=== PATIENT | female | born 1935 | race Caucasian/White ===

== ENCOUNTER 2019-03-06 10:14 | Emergency (ER) | payer MEDICARE, OTHER ==
--- NOTE | 2019-03-06 10:45 | ED ---
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 She states she was standing this morning using her walker when she felt her right leg give out on her. She denies falling and denies blunt trauma to the area. She states the area "twisted" and she felt immediate pain to the groin, R lateral portion of the leg extending from the hip to the R knee. Currently, she is endorsing pain to the lateral side of the R knee without pain to the hip at this time. She was recently DC'd from [facility] after 2 days for rehab from her R hip replacement. She was able to take Tylenol prior to arrival and states her pain level currently is rated 5/10 only with movement, 2/10 at rest. Orthopedic surgeon is Angelito Kelley MD [facility]. 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 Mechanism Of Injury: Twisted Onset of Pain: Minutes Onset/Duration: Minutes Severity Initially: Moderate Severity Currently: Moderate Pain Intensity: 3 Pain Scale Used: 0-10 Numeric Timing: Constant Location: Is Discrete @ - right lateral hip and knee, right groin Character Of Pain: Aching Associated Signs And Symptoms: Negative: Swelling, Redness, Bruising Aggravating Factor(s): Standing, Ambulation Alleviating Factor(s): Rest Able to Bear Weight: No - Risk Factors Gout Risk Factors: Negative DVT Risk Factors: Negative Septic Arthritis Risk Factor: Negative - Allergies/Home Medications Allergies/Adverse Reactions: Allergies Allergy/AdvReac Type Severity Reaction Status Date / Time No Known Allergies Allergy Verified 12/26/12 16:26 Home Medications: Home Medications Aspirin EC TAB* [Ecotrin EC Low Dose 81 MG*] 81 mg PO DAILY 03/06/19 [History Confirmed 03/06/19] Calcium Carb, Citrate/Vit D3 [Calcium+D3 Gradual Releas] 1 tab PO DAILY [History Confirmed 03/06/19] Cod Liver Oil 1 each PO DAILY 03/06/19 [History Confirmed 03/06/19] Cyanocobalamin TAB* [Vitamin B12 TAB*] 1,000 mcg PO DAILY 03/06/19 [History Confirmed 03/06/19] Cyclosporine 0.05% OPHTH (NF) [Restasis 0.05% OPHTH] 1 drop BOTH EYES BID [History Confirmed 03/06/19] Garlic 1,000 mg PO DAILY 03/06/19 [History Confirmed 03/06/19] Hydrocodone/Acetaminophen [Vicodin 5-300 mg] 1 tab PO DAILY 03/06/19 [History Confirmed 03/06/19] Iron 28 mg PO DAILY 03/06/19 [History Confirmed 03/06/19] L.acidoph,Paracasei, B.lactis [Probiotic] 1 each PO DAILY 03/06/19 [History Confirmed 03/06/19] Multivitamins/Minerals TAB* [Theragran/minerals TAB*] 1 tab PO DAILY 03/06/19 [ History Confirmed 03/06/19] Olopatadine 0.2% (NF) [Pataday 0.2% (NF)] 1 drop BOTH EYES DAILY 03/06/19 [ History Confirmed 03/06/19] Pantoprazole TAB * [Protonix TAB*] 40 mg PO BID 03/06/19 [History Confirmed ] Spironolactone TAB* [Aldactone TAB*] 25 mg PO DAILY 03/06/19 [History Confirmed 03/06/19] Valsartan/HCTZ 160/12.5(NF) [Diovan HCT 160/12.5 (NF)] 1 tab PO DAILY 03/06/19 [ History Confirmed 03/06/19] PMH/Surg Hx/FS Hx/Imm Hx Previously Healthy: Yes Endocrine/Hematology History: Denies: Hx Diabetes, Hx Thyroid Disease Cardiovascular History: Reports: Hx Hypertension Respiratory History: Denies: Hx Asthma, Hx Chronic Obstructive Pulmonary Disease (COPD) GI History: Denies: Hx Ulcer - Cancer History Cancer Type, Location and Year: Uterine cancer - Surgical History Surgery Procedure, Year, and Place: Hysterectomy, bilateral knee replacement, gallbladder - Immunization History Hx Pertussis Vaccination: No Immunizations Up to Date: Yes Infectious Disease History: No Infectious Disease History: Denies: Hx Hepatitis, Hx Human Immunodeficiency Virus (HIV), History Other Infectious Disease, Traveled Outside the [place] in Last 30 Days - Social History Occupation: Unemployed Lives: With Family Alcohol Use: Rare Hx Substance Use: No Substance Use Type: Reports: None Smoking Status (MU): Former Smoker Type: Cigarettes Review of Systems Constitutional: Negative Negative: Fever, Chills, Fatigue, Skin Diaphoresis Negative: Palpitations, Chest Pain Negative: Shortness Of Breath, Cough Genitourinary: Negative Positive: no symptoms reported, see HPI Positive: Arthralgia - right lateral hip and knee, right groin. Negative: Myalgia Negative: Rash, Bruising Neurological: Negative All Other Systems Reviewed And Are Negative: Yes Physical Exam Triage Information Reviewed: Yes Vital Signs On Initial Exam: Initial Vitals Temp Pulse Resp BP Pulse Ox 98.0 F 71 16 200/70 98 03/06/19 10:25 03/06/19 10:25 03/06/19 10:25 03/06/19 10:25 03/06/19 10:25 Vital Signs Reviewed: Yes Appearance: Positive: Well-Appearing, Well-Nourished Skin: Positive: Warm, Skin Color Reflects Adequate Perfusion Head/Face: Positive: Normal Head/Face Inspection Eyes: Positive: EOMI, Conjunctiva Clear Neck: Positive: Supple, Nontender Respiratory/Lung Sounds: Positive: Clear to Auscultation Cardiovascular: Positive: RRR, Pulses are Symmetrical in both Upper and Lower Extremities Musculoskeletal: Positive: Other - pain with attempting flexion and extension of the R knee - pt unable to flex at the hip. no shortening or internal/ external rotation of the R leg noted Neurological: Positive: Sensory/Motor Intact, Speech Normal Psychiatric: Positive: Affect/Mood Appropriate Diagnostics - Vital Signs Vital Signs Temp Pulse Resp BP Pulse Ox 03/06/19 10:25 98.0 F 71 16 200/70 98 - Laboratory Result Diagrams: 03/06/19 15:28 03/06/19 15:28 Lab Statement: Any lab studies that have been ordered have been reviewed, and results considered in the medical decision making process. Lower Extremity Course/Dx - Course Course Of Treatment: This patient is an 84-year-old female with a recent history of right hip replacement 5 Angelito Nicole M.D. in our [facility] 2 weeks ago today presenting to the ED with right hip and knee pain. He states she "twisted " leg earlier and developed immediate pain to the right groin and right lateral portion of the lower extremity extending from the hip to the knee. X-rays of the hip and knee were obtained which shows no acute findings. This was followed up with a CT of the lower extremity due to continuing pain to the femur , patient currently denying any pain to the pelvis.IMPRESSION: 1. PERIPROSTATIC FRACTURE IN THE PROXIMAL RIGHT FEMUR. 2. HEMATOMA IN THE SUBCUTANEOUS TISSUES ALONG THE LATERAL ASPECT OF THE RIGHT THIGH. 3. BOWING DEFORMITY OF THE FEMUR. Patient was given tramadol on arrival. After femur fracture was identified, and an IV was placed and orthopedic consult was advised. Dr. Chapin to see xrays and CT and recommended transfer to [facility] for surgery consult (Dr. Kelley) . Pt accepted and awaiting bed. Pt accepted by Dr. Vitale. - Diagnoses Differential Diagnosis/HQI/PQRI: Positive: Fracture (Closed), Sprain, Strain Provider Diagnoses: Emily-prosthetic femoral shaft fracture Discharge ED - Sign-Out/Discharge Documenting (check all that apply): Patient Departure Patient Received Moderate/Deep Sedation with Procedure: No - Discharge Plan Condition: Good Disposition: TRANS HIGHER LVL OF CARE FAC Referrals: Major Lund MD [Primary Care Provider] - - Billing Disposition and Condition Condition: GOOD Disposition: Trans Higher Lvl of Care Fac
--- OUTSIDE RECORDS SUMMARY | 2019-03-06 11:23 | XMS REPORT | Summary of Care ---
:1935 Author Organization [facility] Address [address] [facility] [place] [address] Care Team Providers Name Role Phone Major Felix MD Primary Care Provider Sami Kaur MD Unavailable Ijeoma Burnham OD Unavailable Rob Jimenez DMD Unavailable Reason for Visit Reason Comments Pre-op Exam Encounter Details Date Type Department Care Team Description 02/09/2019 Office Visit [facility], Preop examination (Primary Dx); 1 Nielsen Azucena Mitchell NP Primary osteoarthritis of right hip; [place] [id number] 1 KG SINGH Right hip pain [phone] [place] [id number] Allergies Active Allergy Reactions Severity Noted Date Comments Milk GI Reaction 02/25/2012 CAN TOLERATE CHEESE AND ICE CREAM documented as of this encounter (statuses as of 02/19/2019) Medications Medication Sig Dispensed Refills Start Date End Date Status ASPIRIN 81 MG Oral Tab Take 1 Tab by 0 Active mouth EVERY EVENING. Cod Liver Oil 1000 MG Take 1 Cap by 0 Active Oral Cap mouth EVERY MORNING. Garlic 1000 MG Oral Cap Take 1 Cap by 0 Active mouth EVERY MORNING. Red Yeast Rice 600 MG Take 2 Caps by 0 Active Oral Cap mouth TWICE DAILY. Tow-3 Fatty Acids Take 1 Cap by 0 Active (FISH OIL) 1000 MG Oral mouth EVERY Cap MORNING. Iron 66 MG Oral Tab Take 65 mg by 0 Active mouth DAILY. Zotxsik-Fptwiyqqw-Yawgx Take 1 Tab by 0 Active in D (CALCIUM 1200+D3 mouth DAILY. PO) Multiple Take by mouth 0 Active Vitamins-Minerals DAILY. (ICAPS) Oral Cap Olopatadine HCl Place to the 0 Active (PATADAY) 0.2 % external eye Ophthalmic Solution DAILY. cyclosporin (RESTASIS) Place to the 0 Active 0.05 % Ophthalmic external eye Emulsion TWICE DAILY. Cyanocobalamin (B-12) Take 2,000 mcg by 0 Active 1000 MCG Oral Cap mouth DAILY. Probiotic Product Take 1 Cap by 0 Active (PROBIOTIC FORMULA PO) mouth. carvedilol (COREG) 12.5 TAKE 1 TABLET BY 180 Tab 1 09/26/2018 Active MG Oral Tab MOUTH TWICE A DAY pantoprazole (PROTONIX) TAKE 1 TABLET BY 180 Tab 3 09/26/2018 Active 40 MG Oral Tab EC MOUTH TWICE A DAY Valsartan-hydroCHLOROth TAKE 1 TABLET BY 90 Tab 1 01/10/2019 Active iazide 160-12.5 MG Oral MOUTH EVERY DAY TabIndications: Essential hypertension HYDROcodone-acetaminoph Take 1 Tab by 90 Tab 0 01/27/2019 Active en (NORCO) 5-325 MG mouth EVERY EIGHT Oral Tab HOURS NEEDED (pain). Additional information Patient taking differently: 1 Tab Oral Q8 HRS PRN, pain, Indications: takes QHS, Reported on 02/09/2019 9:18 AM spironolactone Take 2 Tabs by 180 Tab 0 10/07/2018 02/13/2019 Discontinued (ALDACTONE) 25 MG mouth DAILY. (Reorder) Oral Tab mupirocin (BACTROBAN) 0.5 g by 15 g 0 02/09/2019 02/14/2019 2 % Apply externally Topical route Ointment TWICE DAILY for [address] pea size drop each end of q-tip, swab the inside nares then pinch nose 1 minute. documented as of this encounter (statuses as of 02/19/2019) Active Problems Problem Noted Date Chronic pain of right knee 12/30/2018 Primary osteoarthritis of right hip 12/30/2018 Thrombocytopenia 08/23/2018 Type 2 diabetes mellitus without complication, without long-term current 04/08 use of insulin Overview: Per Dr. Felix note on 02/22/17. Fractured lateral malleolus 11/10/2013 Ankle fracture, left 09/05/2013 Ankle pain, left 08/22/2013 Fx lateral malleolus-closed 08/22/2013 Carpal tunnel syndrome R CTR 03/02/12 02/25/2012 FAMILY HISTORY OF BREAST CANCER 02/20/2008 Essential hypertension 02/20/2008 Dyslipidemia 02/20/2008 Sleep Apnea 02/20/2008 COLON POLYPS 02/20/2008 Prieto's esophagus 02/20/2008 Hearing Loss 02/20/2008 DILATED CARDIOMYOPATHY 02/20/2008 Overview: 04/11/09 echocardiogram: Overall left ventricular systolic function is mildly impaired with, and EF between 45-50%. The diastolic filling pattern indicates impaired relaxation. The aortic valve is trileaflet, and appears structurally normal. No aortic stenosis or regurgitation. There is trace mitral regurgitation. Mild mitral annular calcification present. Trace tricuspid regurgitation present. Similar to 01/13 with slight improvement in LV function. 12/30/04 echocardiogram: The aortic valve is slightly thickened but mobile. Aortic valve Doppler is normal. The left ventricle is normal size and mildly hypertrophied. There are no apparent regional wall motion abnormalities and global systolic function is fair with ejection fraction between 50% and 55%. There is no evidence of left ventricular outflow tract obstruction by Doppler interrogation. The mitral valve is slightly sclerotic but mobile. There is mild annular calcification. Doppler demonstrates very mild mitral regurgitation. HYPERGLYCEMIA 02/20/2008 BMI 32.0-32.9,adult Overview: This patient's BMI has been calculated and is above average, and BMI management plan is completed. General patient education discussion including: weight loss link to reduction of risk factors for cardiac and other diseases Barretts esophagus Overview: 2013 6 mo Refusal of statin medication by patient Statin intolerance documented as of this encounter (statuses as of 02/19/2019) Resolved Problems Problem Noted Date Resolved Date UTERINE CANCER 02/20/2008 09/17/2009 Other diseases of lung, not elsewhere classified 02/20/2008 09/17/2009 Congestive Heart Failure 02/20/2008 09/17/2009 Overview: 02/12/05 cardiac catherization: CONCLUSION: 1. No obstructive coronary disease. 2. Normal left ventricular systolic function. 3. Upper limit of normal left ventricular end diastolic pressure, otherwise normal left-sided hemodynamics. 4. Successful Angio-Seal of right femoral artery. 5. False positive stress echocardiogram, there are no cardiac contraindications to her anticipated surgery. She should be maintained on her cardiac medications. Hypercholesterolemia 02/20/2008 09/30/2010 Nonspecific abnormal unspecified cardiovascular function study 02/11/2005 documented as of this encounter (statuses as of 02/19/2019) Immunizations Name Administration Dates Next Due Celestone Soluspan(12mg) 12/11/2010, 07/04/2010, 03/28/2010, 09/13/2009 Depo Medrol (40mg) 12/27/2009 H1N1 Injectable Adult 06/05/2009 Influenza (IM) Preservative Free 03/02/2013 Influenza Vaccine High Dose 02/25/2018, 02/22/2017, 03/04/2016, 02/20/2015, 02/20/2015, 04/04/2014 Influenza Vaccine Whole 03/25/2009, 03/19/2008, 03/29/2007 Influenza Virus Vaccine Pres Free 6-35 02/26/2012, 02/27/2011, 03/10/2010 Months PNEUMOCOCCAL POLYSACCHARIDE VACCINE 03/03/2007 Pneumococcal Conjugate(13 Valent) 09/07/2016 ZOSTER (ZOSTAVAX) VACCINE 05/03/2017 documented as of this encounter Social History Tobacco Use Types Packs/Day Years Used Date Former Smoker Cigarettes 1.5 27 Quit: 10/05/1974 Smokeless Tobacco: Never Used Comments: 20+ yrs of a 1 1/2 packs daily Alcohol Use Drinks/Week oz/Week Comments No 1 glass of wine occasionally Sex Assigned at Date Recorded Not on file Job Start Date Occupation Industry Not on file Not on file Not on file Travel History Travel Start Travel End No recent travel history available. documented as of this encounter Last Filed Vital Signs Not on filedocumented in this encounter Progress Notes Stephen Mccarthy NP - 02/09/2019 9:30 AM EDT ORTHOPEDIC PRE-OPERATIVE HISTORY AND PHYSICAL Patient: Solitario Wing : 1935 Date of Service: 02/09/2019 Chief Complaint Patient presents with Pre-op Exam Attending:Dr. Angelito Nicole Date of Admission/Surgery: 02/20/19 Pre-operative diagnosis: right hip osteoarthritis Planned Procedure: right total hip arthroplasty PCP: Major Felix HPI: Solitario Wing is a 84-y.o. female who presents today in Pre Admission Testing for medical clearance. Patient has a complaint of right hip pain. The pain is 0/10 at rest, and 6/10 at its worst. The pain has been present for several months . It is located groin and anterior knee. It is worse withweight bearing, stairs and activity. Solitario Wing has tried tylenol, NSAID's and activity modification, these are no longer helping. Physical therapy and/or home exercise not helping Due to on-going symptoms, failure of conservative treatments, and negative quality of life issues Solitario has elected to proceed with right total hip arthroplasty. We discussed surgical treatment consisting of right total hip arthroplasty with a goal of obtaining a construct to allow for pain-free ambulation. The procedure , risks, benefits, and alternatives were discussed as well as the esteban- operative hospital course with emphasis on possible postoperative infection, neurovascular compromise, intraoperative/post operative bleeding, deep vein thrombosis/pulmonary embolism, possible non-resolving symptoms, need for future procedures, periprosthetic fractures, failures, dislocations, infections, need for revisions staged or otherwise, deep vein thrombosis prophylaxis with Aspirin , complications from the procedure and/or anesthesia not limited to possible loss of limb and/or life, the need for pre-operative home exercise program and post operative physical therapy and occupational therapy, the possibility for short term rehabilitation placement, the post operative course, returning to activities, and avoiding impact activities. The patient is aware of these and has elected to go forward with the surgical procedure by Dr. Angelito Nicole. Patient received exercises with [employer] material for home exercise program including ROM, Strengthening and Stretching during initial office visit. PMHx: Past Medical History: Diagnosis Date Barretts esophagus 2013 . 2016 stable fu 2 years 2019 Barretts no dysplasia -3 years . . BMI 32.0-32.9,adult Cardiomyopathy dilated initially due to flu Carotid bruit 2010 ,50% Colon polyp 2006 colonoscopy 2011 Tics only 5 years. 2016 adenoma recommend 5 years Congestive Heart Failure 1989 due to flu CTS (carpal tunnel syndrome) 2012 Diverticulosis Endometrial ca (HCC) FAMILY HISTORY OF BREAST CANCER 02/20/2008 Fibula fracture Gastric nodule 2013 bx negative GERD (gastroesophageal reflux disease) Hearing loss aids HYPERGLYCEMIA 02/20/2008 Hyperlipidemia not want meds Hypertension Macular degeneration Nulliparity OA (osteoarthritis) of knee Obesity Osteopenia 2013 [id number] major and 3.2 hip if include fibula .fx if not then 11 and 2.3 Postmenopausal Pulmonary nodule negative CT Refusal of statin medication by patient Sleep apnea cpap 13cm Statin intolerance Thrombocytopenia (HCC) Patient Active Problem List Diagnosis FAMILY HISTORY OF BREAST CANCER Essential hypertension Dyslipidemia Sleep Apnea COLON POLYPS Prieto's esophagus Hearing Loss DILATED CARDIOMYOPATHY HYPERGLYCEMIA BMI 32.0-32.9,adult Carpal tunnel syndrome R CTR 03/02/12 Ankle pain, left Fx lateral malleolus-closed Ankle fracture, left Fractured lateral malleolus Barretts esophagus Type 2 diabetes mellitus without complication, without long-term current use of insulin (HCC) Refusal of statin medication by patient Thrombocytopenia (HCC) Statin intolerance Chronic pain of right knee Primary osteoarthritis of right hip PSHx: has a past surgical history that includes cholecystectomy; total knee replacement; total abd hysterectomy; Patient for COLONOSCOPY (2005); echocardiogram (2009); echocardiogram (2010); cardiac stress test nec (04/17); total knee replacement (05/2011); pr egd injection sclerosis esophgl/gastric varices; release carpal tunnel (03/02/2012); echocardiogram (2012); stress echo ( 2012); DOBUTAMINE STRESS ECHOCARDIOGRAM (2012); colonoscopy (N/A, 05/18/2016); pr orbit surgery proc unlisted (Bilateral);and egd (N/A, 10/26/2018). Current Medications: Current Outpatient Medications Medication Sig ASPIRIN 81 MG Oral Tab Take 1 Tab by mouth EVERY EVENING. Cncuimx-Acojxbmhb-Wsabnhx D (CALCIUM 1200+D3 PO) Take 1 Tab by mouth DAILY. carvedilol (COREG) 12.5 MG Oral Tab TAKE 1 TABLET BY MOUTH TWICE A DAY Cod Liver Oil 1000 MG Oral Cap Take 1 Cap by mouth EVERY MORNING. Cyanocobalamin (B-12) 1000 MCG Oral Cap Take 2,000 mcg by mouth DAILY. cyclosporin (RESTASIS) 0.05 % Ophthalmic Emulsion Place to the external eye TWICE DAILY. Garlic 1000 MG Oral Cap Take 1 Cap by mouth EVERY MORNING. HYDROcodone-acetaminophen (NORCO) 5-325 MG Oral Tab Take 1 Tab by mouth EVERY EIGHT HOURS NEEDED (pain). (Patient taking differently: Take 1 Tab by mouth EVERY EIGHT HOURS NEEDED (pain). Indications: takes QHS) Iron 66 MG Oral Tab Take 65 mg by mouth DAILY. Multiple Vitamins-Minerals (ICAPS) Oral Cap Take by mouth DAILY. mupirocin (BACTROBAN) 2 % Apply externally Ointment 0.5 g by Topical route TWICE DAILY for [address] pea size drop each end of q-tip, swab the inside nares then pinch nose 1 minute. Olopatadine HCl (PATADAY) 0.2 % Ophthalmic Solution Place to the external eye DAILY. Tow-3 Fatty Acids (FISH OIL) 1000 MG Oral Cap Take 1 Cap by mouth EVERY MORNING. pantoprazole (PROTONIX) 40 MG Oral Tab EC TAKE 1 TABLET BY MOUTH TWICE A DAY Probiotic Product (PROBIOTIC FORMULA PO) Take 1 Cap by mouth. Red Yeast Rice 600 MG Oral Cap Take 2 Caps by mouth TWICE DAILY. spironolactone (ALDACTONE) 25 MG Oral Tab Take 2 Tabs by mouth DAILY. ( Patient taking differently: Take 50 mg by mouth DAILY. Indications: takes one a day) Valsartan-hydroCHLOROthiazide 160-12.5 MG Oral Tab TAKE 1 TABLET BY MOUTH EVERY DAY No current facility-administered medications for this visit. ALG: Allergies as of 02/09/2019 - Reviewed 02/09/2019 Allergen Reaction Noted Milk GI Reaction 02/25/2012 SOC Hx: reports that she quit smoking about 44 years ago. Her smoking use included cigarettes. She has a 40.50 pack-year smoking history. She has never used smokeless tobacco. She reports that she does not drink alcohol or use drugs. 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 Pt lives alone. FamHx: family history includes Breast Cancer in her mother; Cancer in her brother and mother; Heart in her brother, brother, brother, father, mother, and unknown relative; High Cholesterol in her brother; Hypertension in her brother, father, and mother. Family Status Relation Name Status Mo Bro Fa Unknown (Not Specified) Bro half brother Bro half brother ROS: See HPI otherwise all other ROS are negative. Physical Exam: General : Solitario Wing is a 84-y.o. female in no acute distress, conscious alert and oriented times three. HEENT: Normal cephalic and atraumatic head. Pupils equal, round, and reactive to light bilaterally. EOM's intact bilaterally. External ears are patent without discharge. Gross hearing is intact. Nose is patent without discharge. Oropharynx clear without exudate. Dentition is adequate. Neck: Supple without adenopathy. Heart: No chest pain or shortness of breath noted. Chest: No audible wheezes, rhonchi, or rales. Abdomen: Bowel sounds present. Soft, non-tender, nondistended. /Recta/Breasts: Deferred Extremities: Otherwise extremities are grossly symmetrical and unremarkable without erythema, ecchymosis, clubbing or edema. Neuro: Cranial nerves II-XII grossly intact. Skin: Warm and dry, well perfused Bilateral hips: No peritroch tenderness. Pos pain with internal rotation. Po s antalgic gait. Neg trendelenburg. Limb lengths grossly equal. Pos stinchfield. ROM 0-90 flexion, 5 internal rotation, 25 external rotation, 35 abduction, 15adduction, 5/5 DF, 5/5PF, sensate saphenous, sural, deep peroneal, superficial peronea, and plantar nerves + 2 dorsalis pedis and + 2 posterior tibial pulses. No noted lymphedema No pain with range of motion of lumbar spine. Straight leg raise neg . RADIOLOGIC STUDIES: Right hip with joint space narrowing,bone on bone changes, sclerosis, spurring, consistent with Osteoarthritis Labs: Admission on 10/26/2018, Discharged on 10/26/2018 Component Date Value Ref Range Status Sp Final Report 10/26/2018 Final Value: Patient Name: SOLITARIO WING Date of :1935 (Age: 83) Gender:F Specimen #[id number] Source: 1: Cold Bx: EG junction, Hx of Prieto's r/o dysplasia; EGD Final Pathologic Diagnosis Esophagus, GE junction, biopsy: -Prieto's esophagus; no evidence of dysplasia. -Squamocolumnar mucosa with changes consistent with reflux esophagitis. Gross Description 1. Cold Bx: EG junction, Hx of Prieto's r/o dysplasia; EGD:The specimen is received in formalin labeled with the patient's name and MRN and " cold BX EG junction, Hx of Prieto's, R/O dysplasia" and consists of multiple gurrola irregular soft tissue fragments with aggregate dimensions of 0.9 x 0.6 x 0.2 cm. The specimen is submitted in toto in cassette 1A.NJL The gross description is reviewed by the primary pathologist within one business day. Gross description is reviewed befor e sign out by ADA NAIR MD, PHD Microscopic Description Microscopic examination performed ADA NAIR MD, PHD Upper GI endoscopy 10/26/2018 Final Value:[facility] Patient Name: Solitario Wing Procedure Date: 10/26/2018 11:08 AM Date of : 1935 Admit Type: Outpatient Age: 83 Room: OR Gender: Female Note Status: Finalized Attending MD: JACKSON POLANCO JR, MD Instrument Name: [id number] Procedure: Upper GI endoscopy Indications: Follow-up of Prieto's esophagus Providers: JACKSON POLANCO JR, MD, Nataly Prasad (Nurse), Christina Jain RN (Nurse) Referring MD: MAJOR FELIX MD (Referring MD) Medicines: See the Anesthesia note for documentation of the administered medications Complications: No immediate complications. Procedure: The patient's current medications and allergies were reviewed and recorded in the nurses notes. The patient was made aware of the risk of the procedure which can include: bleeding, infection, perforation, an adverse reaction to sedation, and a risk of missed lesions, among others. The patient appeared to understand. An opportunity for questions was provided, and an informed consent form was signed. The scope was passed under direct vision. Throughout the procedure, the patient's blood pressure, pulse EKG, and oxygen saturations were monitored continuously. The Endoscope was introduced through the mouth, and advanced to the second part of duodenum. The Z-line was located at: The upper GI endoscopy was accomplished without difficulty. The patient tolerated the procedure well. Findings: The esophagus and gastroesophageal junction were examined with white light and narrow band imaging (NBI). There were esophageal mucosal changes secondary to established long-segment Prieto's disease. These changes involved the mucosa at the upper extent of the gastric folds (37 cm from the incisors) extending to the Z-line (32 cm from the incisors). The maximum longitudinal extent of these esophageal mucosal changes was 5 cm in length. Contrast chromoscopy with an acetic acid solution was performed. Mucosa was biopsied with a cold forceps for histology in a targeted manner from 32 to 38 cm from the incisors. One specimen bottle was sent to pathology. Multiple medium pedunculated and sessile polyps with no stigmata of recent bleeding were found in the gastric body. The examined duodenum was normal. Impression: - Esophageal mucosal changes secondary to established long-segment Prieto's disease. Chromoscopy performed. Biopsied. - Multiple gastric polyps. - Normal examined duodenum. Recommendation: - Continue present medications. - Await pathology results. - Discharge patient to home. Procedure Code(s): --- Professional --- 21690, Esophagogastroduodenoscopy, flexible, transoral; with biopsy, single or multiple Diagnosis Code(s): --- Professional --- K22.70, [place] tt's esophagus without dysplasia CPT copyright 2017 [employer]. All rights reserved. The codes documented in this report are preliminary and upon medical service representative review may be revised to meet current compliance requirements. JACKSON POLANCO JR, MD 10/26/2018 11:55:46 AM This report has been signed electronically. Number of Addenda: 0 Note Initiated On: 10/26/2018 11:08 AM No visits with results within 1 Week(s) from this visit. Latest known visit with results is: Patient Active Problem List Component Date Value Sp Final Report 10/26/2018 Value: Patient Name: SOLITARIO WING Date of :1935 (Age: 83) Gender:F Specimen #[id number] Source: 1: Cold Bx: EG junction, Hx of Prieto's r/o dysplasia; EGD Final Pathologic Diagnosis Esophagus, GE junction, biopsy: -Prieto's esophagus; no evidence of dysplasia. -Squamocolumnar mucosa with changes consistent with reflux esophagitis. Gross Description 1. Cold Bx: EG junction, Hx of Prieto's r/o dysplasia; EGD:The specimen is received in formalin labeled with the patient's name and MRN and " cold BX EG junction, Hx of Prieto's, R/O dysplasia" and consists of multiple gurrola irregular soft tissue fragments with aggregate dimensions of 0.9 x 0.6 x 0.2 cm. The specimen is submitted in toto in cassette 1A.NJL The gross description is reviewed by the primary pathologist within one business day. Gross description is reviewed befor e sign out by ADA NAIR MD, PHD Microscopic Description Microscopic examination performed ADA NAIR MD, PHD Upper GI endoscopy 10/26/2018 Value:[facility] Patient Name: Solitario Wing Procedure Date: 10/26/2018 11:08 AM Date of : 1935 Admit Type: Outpatient Age: 83 Room: OR Gender: Female Note Status: Finalized Attending MD: JACKSON POLANCO JR, MD Instrument Name: [id number] Procedure: Upper GI endoscopy Indications: Follow-up of Prieto's esophagus Providers: JACKSON POLANCO JR, MD, Nataly Prasad (Nurse), Christina Jain RN (Nurse) Referring MD: MAJOR FELIX MD (Referring MD) Medicines: See the Anesthesia note for documentation of the administered medications Complications: No immediate complications. Procedure: The patient's current medications and allergies were reviewed and recorded in the nurses notes. The patient was made aware of the risk of the procedure which can include: bleeding, infection, perforation, an adverse reaction to sedation, and a risk of missed lesions, among others. The patient appeared to understand. An opportunity for questions was provided, and an informed consent form was signed. The scope was passed under direct vision. Throughout the procedure, the patient's blood pressure, pulse EKG, and oxygen saturations were monitored continuously. The Endoscope was introduced through the mouth, and advanced to the second part of duodenum. The Z-line was located at: The upper GI endoscopy was accomplished without difficulty. The patient tolerated the procedure well. Findings: The esophagus and gastroesophageal junction were examined with white light and narrow band imaging (NBI). There were esophageal mucosal changes secondary to established long-segment Prieto's disease. These changes involved the mucosa at the upper extent of the gastric folds (37 cm from the incisors) extending to the Z-line (32 cm from the incisors). The maximum longitudinal extent of these esophageal mucosal changes was 5 cm in length. Contrast chromoscopy with an acetic acid solution was performed. Mucosa was biopsied with a cold forceps for histology in a targeted manner from 32 to 38 cm from the incisors. One specimen bottle was sent to pathology. Multiple medium pedunculated and sessile polyps with no stigmata of recent bleeding were found in the gastric body. The examined duodenum was normal. Impression: - Esophageal mucosal changes secondary to established long-segment Prieto's disease. Chromoscopy performed. Biopsied. - Multiple gastric polyps. - Normal examined duodenum. Recommendation: - Continue present medications. - Await pathology results. - Discharge patient to home. Procedure Code(s): --- Professional --- 85533, Esophagogastroduodenoscopy, flexible, transoral; with biopsy, single or multiple Diagnosis Code(s): --- Professional --- K22.70, [place] tt's esophagus without dysplasia CPT copyright 2017 [employer]. All rights reserved. The codes documented in this report are preliminary and upon medical service representative review may be revised to meet current compliance requirements. JACKSON POLANCO JR, MD 10/26/2018 11:55:46 AM This report has been signed electronically. Number of Addenda: 0 Note Initiated On: 10/26/2018 11:08 AM ] Results for orders placed or performed in visit on 12/30/18 XR KNEE 4 OR MORE VIEWS RIGHT (STANDARD) Narrative Procedure(s): XR KNEE 4 OR MORE VIEWS RIGHT (STANDARD) Date of service: 12/30/2018 10:16 AM Provided clinical information: 83 years, Female, "pain" Procedure and materials: Standard protocol. Comparison studies: None. Observations: Side: 4 views of the right knee. Bones: Intact with no displaced fracture or focal osseous destruction. Joints: There is a knee prosthesis in normal postoperative alignment with no periprosthetic lucency or fracture. Soft tissues: Unremarkable. Impression Well aligned right knee arthroplasty with no hardware complication evident. Signed by Jcarlos Madsen on 01/02/2019 2:32 AM Lab Results Component Value Date WBC Count 6.28 02/09/2019 Hemoglobin 13.0 02/09/2019 Hematocrit 38.3 02/09/2019 Platelet Count 142 (L) 02/09/2019 Lab Results Component Value Date Sodium 141 02/09/2019 Potassium 4.4 02/09/2019 Chloride 104 02/09/2019 CO2 28 02/09/2019 Glucose 144 (H) 02/09/2019 BUN 19 (H) 02/09/2019 Creatinine 1.1 02/09/2019 Calcium 9.6 02/09/2019 Total Protein 7.3 02/09/2019 Albumin 4.2 02/09/2019 AST 25 02/09/2019 ALT 18 02/09/2019 Alkaline Phosphatase 61 02/09/2019 Total Bilirubin 0.4 02/09/2019 Lab Results Component Value Date INR 1.04 02/09/2019 Labs: Reviewed EKG: Reviewed Recommendations by Medicine: Solitario Wing is a 84-y.o. female is here for preop medical assessment prior to proceeding with the right hip replacement ICD-9-CM ICD-10-CM 1. Preop exam for internal medicine V72.83 Z01.818 REFER TO CARDIOLOGY (GENERAL) Taking into consideration type of surgery and patient`s risk factors - risk of major cardiovascular adverse events is 1% perioperatively patient is Buddhist and will not accept any blood or blood products, but she will accept oral iron, IV iron and Procrit infusions if needed 2. Primary osteoarthritis of right hip 715.15 M16.11 patient planned for right hip replacement. Procedure -related complications were discussed with the patient by surgical team She was instructed to call the surgeon office [facility] if develop fever,chills,cough ,signs of UTI,dentalpain or signs of other infection,any vomiting or diarrhea If chest pain or SOB develops-call PCP or go to nearest ER and make sure to notify the surgeon office 3. Essential hypertension 401.9 I10 blood pressure well controlled, continue current medications. 4. Dilated cardiomyopathy (HCC) 425.4 I42.0 patient is remaining euvolemic, dilated cardiomyopathy after the flow, that improved based on the last echo ejection fraction was 55%. Patient should continue perioperative beta-blockers, she will take valsartan hydrochlorothiazide on the morning of the surgery to avoid volume overload, but will hold spironolactone on the morningof the surgery. Monitor on telemetry perioperatively , monitor fluid status closely We will obtain cardiology evaluation-patient will see her own account services coordinator at [facility] prior to elective orthopedic surgery 5. Gastroesophageal reflux disease, esophagitis presence not specified 530.81 K21.9 patient is stable, should continue current medications. 6. Hearing loss, unspecified hearing loss type, unspecified laterality 389.9 H91.90 patient is veryhard of hearing, has hearing aids, she will bring to the hospital and use 7. ANAHI on CPAP 327.23 G47.33 patient will bring and use her own CPAP Patient is at high risk of ANAHI based on Stop-Bang score Apply ANAHI protocol when admitted V46.8 Z99.89 Recommendations She will stop the aspirin starting 1 week prior to surgery. restart in the immediate post op period as long as good hemostasis has been achieved and no major concerns for bleeding with the antiplateletagent persists Patient was asked to stop/not to take nsaids (aleeve, advil, ibuprofen, motrin, aspirin) 1 week Prior to sugery Warned about post of anemia, need for transfusion discussed.iron suplementation Dvt prophylaxis per protocol, risk and benefits discussed. signs and symptoms of DVT and pulmnary embolism discussed. pain managment/ constipation prophylaxis and physical and occupational therapy per protocol. Incentive spirometry recommended to reduce pulmonary complications. ICD-9-CM ICD-10-CM 1. Preop examination V72.84 Z01.818 2. Primary osteoarthritis of right hip 715.15 M16.11 3. Right hip pain 719.45 M25.551 PLAN: Pending pre-operative medical clearance Solitario is scheduled for right total hip arthroplasty and will be initiated into total joint camp clinical pathway. The procedure, risks, benefits, alternatives, and post-operative course has been discussed as mentioned previously and she has elected to proceed with this surgical procedure. Please refer to the internal medicine documentation for details. She was instructed to discontinue any aspirin, aspirin related products, and NSAIDs one week prior to procedure. She will also discontinue/modify any medications as instructed at her pre-op medical consultation. She was instructed to be NPO after midnight evening prior to surgery. She was instructed regarding Aspirin 325 mg twice daily for DVT prophylaxis and was instructed that this medication is to be used only after her hospital discharge. She will follow-up approximately 2 weeks after surgery, sooner if any problems/questions. Pre-operative medical evaluation and consultation was completed by Internal Medicine provider. Their opinion on medical clearance and comorbidities will be reviewed and recommendations followed. Please refer to the internal medicine documentation for details. Inpatient services expected to last for greater than two midnights are required and appropriate following the planned total joint arthroplasty which will be performed under spinal or general anesthesiain the setting of advanced degenerative joint disease with failure of non-surgical conservative treatment. This patient's history includes: has a past medical history of Barretts esophagus, BMI 32.0-32.9,adult, Cardiomyopathy, Carotid bruit (2010), Colon polyp (2005), Congestive Heart Failure ( ), CTS (carpal tunnel syndrome) (2011) , Diverticulosis, Endometrial ca (HCC), FAMILY HISTORY OF BREAST CANCER (2007), Fibula fracture, Gastric nodule (2013), GERD (gastroesophageal reflux disease), Hearing loss, HYPERGLYCEMIA (02/20/2008), Hyperlipidemia, Hypertension , Macular degeneration, Nulliparity, OA (osteoarthritis) of knee, Obesity, Osteopenia (2013), Postmenopausal, Pulmonary nodule, Refusalof statin medication by patient, Sleep apnea, Statin intolerance, and Thrombocytopenia ( HCC).. The plan includes management of comorbid conditions and assessment monitoring of high risk conditions. Based upon these conditions, the patient is expected to need short term rehabilitation placement following their inpatient hospital stay. Author: Stephen Mccarthy NP 11:48. 02/09/2019 documented in this encounter Plan of Treatment Date Type Specialty Care Team Description 02/20/2019 Hospital Encounter Anesthesiology Angelito Nicole, Inpatient MD [address] [address] 02/20/2019 Anesthesia Event Demetris Rueda MD [address] [id number] 02/20/2019 Surgery Angelito Nicole, ARTHROPLASTY TOTAL HIP MD CONTINUM TAPER LOC 1 [address] [facility] [address] [place] [address] 03/16/2019 Office Visit Orthopedics Angelito Nicole MD [address] [id number] 04/06/2019 Office Visit Orthopedics Angelito Nicole MD [address] [address] [phone] 04/10/2019 Office Visit Family Practice Major Felix MD [address] [place] [address] [phone] Health Maintenance Due Date Last Done Comments HIV SCREENING 01/30/1950 FALL RISK ASSESSMENT 2002 ZOSTER IMMUNIZATION SERIES 06/28/2017 05/03/2017 (2 of 3) DEPRESSION SCREENING 12/21/2018 12/21/2017 MEDICARE ANNUAL WELLNESS 12/21/2018 12/21/2017, 11/26/2015, VISIT 11/26/2015, Additional history exists INFLUENZA VACCINE (#1) 2019 02/25/2018, 02/22/2017, 03/04/2016, Additional history exists HEMOGLOBIN A1C 02/23/2019 08/23/2018, 04/01/2018, 08/27/2017, Additional history exists FOOT EXAM 10/08/2019 10/07/2018, 10/07/2018, 08/27/2017 Diabetic Eye Exam 03/08/2020 03/08/2018 COLONOSCOPY SCREENING 05/18/2021 05/18/2016, 05/18/2016, 04/14/2011, Additional history exists EGD (ESOPHAGODUODENOSCOPY) 10/26/2021 10/26/2018, 10/26/2018, 05/18/2016, Additional history exists PNEUMOCOCCAL 65+YRS Completed 09/07/2016, 03/03/2007 HPV IMMUNIZATION SERIES Aged Out No longer eligible based on patient's age to complete this topic MENINGOCOCCAL VACCINE IMM Aged Out No longer eligible based on patient's age to complete this topic documented as of this encounter Goals Goal Patient Goal Associated Recent Patient-Stated? Author Type Problems Progress Blood Pressure Blood Pressure Essential 149/66 No Kevon, < 140/90 hypertension (02/09/2019 MD Major 8:58 AM EDT) Note: Hypertension Care Plan Based on the patient's clinical history and according to JNC 8 guidelines target blood pressure goal is less than 140/90. Based on the patient's last blood pressure of BP: 140/70 mmHg the patient is at at goal. As your provider, it is important that I advise you regarding: your current medications and help you with any challenges you may face taking your medications as directed (ex. instructions, cost, side effects, and interactions). lifestyle changes: exercise and weight reduction your clinical goals and how you can achieve success: weight reduction and exercise plan medication management: adjusted medications as appropriate patient education/self-management tools provided: Current self-management tools adequate To successfully manage my Hypertension I will: monitor my blood pressure daily, understanding that my goal is less than 140/ 90 per my healthcare provider's recommendation. I will schedule an appointment with my provider if consistent abnormal readings greater than 160/100. take medications every day as prescribed by my healthcare provider and if unable to take them I will discuss with my provider. monitor for symptoms of chest pain, chest tightness/pressure, irregular heartbeat, persistent dizziness, radiating arm pain, and neck or jaw pain. If any of these symptoms are noticed I will seek medical attention immediately by calling 911 exercise/walk 15 minutes 3 day(s) per week. If I experience chest pain, chest tightness, or shortness of breath, I will seek medical attention immediately. follow a diet rich in fruits, vegetables, and low-fat dairy products with reduced content of saturated & total fat. I will reduce my sodium intake daily. An example is the DASH diet. To obtain more information please refer to the DASH Eating Plan listed in Educational Resources. record my blood pressure results. [employer] is safe and secure way for you to do this in your medical record online. try to obtain an ideal body weight. My recent weight was Weight: 200 lb ( 90.719 kg). My weight loss goal for my next office visit is 190. limit alcohol consumption. For men two drinks per day and women one drink per day. if currently smoking, will discuss how to quit smoking with my healthcare provider and work towards quitting. Educational Resources: National Heart, Lung, & Blood [place] http://nhlbi.nih.gov/hbp/index.html The DASH Diet Eating Plan http://www.nhlbi.nih.gov/health/health-topics/ topics/dash/ Academy of Nutrition & DIetetics http://eatright.org National Smoking Cessation Site http://smokefree.gov Blood Pressure < Blood Pressure Essential 149/66 (02/09/2019 No Major Felix, 140/90 hypertension 8:58 AM EDT) Note: Hypertension Care Plan Based on the patient's clinical history and according to JNC 8 guidelines target blood pressure goal is less than 150/90. Based on the patient's last blood pressure of BP: 160/72 mmHg the patient is at above goal. As your provider, it is important that I advise you regarding: your current medications and help you with any challenges you may face taking your medications as directed (ex. instructions, cost, side effects, and interactions). Important lifestyle changes: exercise, weight reduction and dietary sodium reduction your clinical goals and how you can achieve success: weight reduction and exercise plan medication management: adjusted medications as appropriate patient education/self-management tools provided: Current self-management tools adequate To successfully manage my Hypertension I will: monitor my blood pressure daily, understanding that my goal is less than 150/ 90 per my healthcare provider's recommendation. I will schedule an appointment with my provider if consistent abnormal readings greater than 160/100. take medications every day as prescribed by my healthcare provider and if unable to take them I will discuss with my provider. monitor for symptoms of chest pain, chest tightness/pressure, irregular heartbeat, persistent dizziness, radiating arm pain, and neck or jaw pain. If any of these symptoms are noticed I will seek medical attention immediately by calling 911 exercise/walk 30 minutes 5 day(s) per week. If I experience chest pain, chest tightness, or shortness of breath, I will seek medical attention immediately. But she does 15 min daily follow a diet rich in fruits, vegetables, and low-fat dairy products with reduced content of saturated & total fat. I will reduce my sodium intake daily. An example is the DASH diet. To obtain more information please refer to the DASH Eating Plan listed in Educational Resources. record my blood pressure results. [employer] is safe and secure way for you to do this in your medical record online. try to obtain an ideal body weight. My recent weight was Weight: 193 lb ( 87.544 kg). My weight loss goal for my next office visit is 185. limit alcohol consumption. For men two drinks per day and women one drink per day. if currently smoking, will discuss how to quit smoking with my healthcare provider and work towards quitting. Educational Resources: National Heart, Lung, & Blood [place] http://nhlbi.nih.gov/hbp/index.html The DASH Diet Eating Plan http://www.nhlbi.nih.gov/health/health-topics/ topics/dash/ Academy of Nutrition & DIetetics http://eatright.org National Smoking Cessation Site http://smokefree.gov Blood Pressure < 150/90 Blood Pressure 149/66 (02/09/2019 8:58 No Major Felix MD AM EDT) Note: This is an individualized treatment (blood pressure) goal for Solitario Wing: Displayed above (on the left) is your goal for blood pressure control. Your most recent blood pressure is also shown above, on the right. You should try to achieve blood pressures that are lower than your goal listed above (on the left). Glycohemoglobin A1c < 7.0 Diabetes 6.4 (02/09/2019 8:53 AM Major Cooper MD EDT) Note: This is an individualized treatment (diabetes control, HgbA1C) goal for Solitario Wing: Displayed above is your progress towards your HgbA1C goal. Your goal is shown above (on the left); your most recent HgbA1C is shown on the right. Note that lower numbers are better. Weight loss vs. 18 mo max Lifestyle 0 (02/09/2019 8:58 AM EDT) Major Cooper MD (lbs) >= 10 Note: This is an individualized lifestyle goal for Solitario Wing: Your body mass index (BMI) is more than 30. You should lose weight. A reasonable starting goal is to lose 10 pounds. Displayed above is how many pounds you have lost thus far towards your 10 pound weight loss goal. Keep immunizations current Lifestyle No Major Felix MD Note: This is an individualized lifestyle goal for Solitario Wing: Please be sure to keep up-to-date on recommended immunizations. For example, this would include a yearly influenza vaccine. Immunization status can be seen by looking at the Health Maintenance sections of your [employer], Plan of Care, and any After Visit Summaries. Take all prescribed medications as directed Self-management No Major Felix MD Note: This is an individualized self-management goal for Solitario Wing: Please take all prescribed medications as directed. 1. Do not skip doses. If you cannot afford your medications, talk with your doctor. 2. Use a pill reminder system such as a pill box if needed. Your pharmacist can help you with this. 3. Contact your Pharmacy 5 days before your medication runs out. If you cannot take your medications for any reasons, talk with your doctor. 4. Please bring all of your medication bottles and inhalers (or a list of all your medications/inhalers) with you to every visit. Potential barriers to meeting all of your care plan goals will continue to be addressed on an ongoing basis. documented as of this encounter Results Not on filedocumented in this encounter Visit Diagnoses Diagnosis Preop examination - Primary Preoperative examination, unspecified Primary osteoarthritis of right hip Primary localized osteoarthrosis, pelvic region and thigh Right hip pain Pain in joint, pelvic region and thigh documented in this encounter Insurance Payer Benefit Plan / Subscriber ID Effective Dates Phone Address Type Group AETNA MEDICARE AETNA MEDICARE xxxxxxxx 2017-Present [employer] ADVANTAGE ADVANTAGE (Home) [address] [phone] [place], [place] (Work) [id number] documented as of this encounter Advance Directives Type Date Recorded Patient Exchange Trouble Shooter Explanation Advance Directives 08/18/2013 7:49 AM Advance Directives 03/12/2016 10:46 AM Health Care Proxy
--- OUTSIDE RECORDS SUMMARY | 2019-03-06 11:23 | XMS REPORT | Summary of Care ---
:1935 Author Organization [facility] Address [address] [address] Care Team Providers Name Role Phone Major Lund MD Primary Care Provider Sami Kaur MD Unavailable Ijeoma Burnham OD Unavailable Rob Jimenez DMD Unavailable Encounter Details Date Type Department Care Team Description 02/09/2019 Hospital Encounter [facility] Outpatient [address] [address] Allergies Active Allergy Reactions Severity Noted Date Comments Milk GI Reaction 02/25/2012 CAN TOLERATE CHEESE AND ICE CREAM documented as of this encounter (statuses as of 02/11/2019) Medications Medication Sig Dispensed Refills Start Date [...] 0 Active Oral Cap mouth TWICE DAILY. [place]-3 Fatty Acids Take 1 Cap by 0 Active (FISH OIL) 1000 MG Oral mouth EVERY Cap MORNING. Iron 66 MG Oral Tab Take 65 mg by 0 Active mouth DAILY. Vtwggoh-Ukugsuiop-Jsdbn Take 1 Tab by 0 Active in [...] Oral Tab EC MOUTH TWICE A DAY spironolactone Take 2 Tabs by 180 Tab 0 10/07/2018 Active (ALDACTONE) 25 MG Oral mouth DAILY. Tab Additional information Patient taking differently: 50 mg Oral DAILY, Indications: takes one a day, Reported on 02/09/2019 9:18 AM Valsartan-hydroCHLOROthiazide 160-12.5 TAKE 1 TABLET BY 90 Tab 1 2018 Active MG Oral TabIndications: Essential MOUTH EVERY DAY hypertension HYDROcodone-acetaminophen (NORCO) 5-325 Take 1 Tab by 90 Tab 0 01/27/2019 Active MG Oral Tab mouth EVERY EIGHT HOURS NEEDED (pain). Additional information Patient taking differently: 1 Tab Oral Q8 HRS PRN, pain, Indications: takes QHS, Reported on 02/09/2019 9:18 AM mupirocin (BACTROBAN) 2 % 0.5 g by Topical route 15 g 0 02/09/20192018 Active Apply externally Ointment TWICE DAILY for [address] pea size drop each end of q-tip, swab the inside nares then pinch nose 1 minute. documented as of this encounter (statuses as of 02/11/2019) Active Problems Problem Noted Date Chronic pain of right knee 12/30/2018 Primary osteoarthritis of right hip 12/30/2018 Thrombocytopenia 08/23/2018 Type 2 diabetes mellitus without complication, without long-term current 04/08 use of insulin Overview: Per Dr. Lund note on 02/22/17. Fractured lateral malleolus 11/10/2013 [...] as of this encounter (statuses as of 02/11/2019) Resolved Problems Problem Noted Date Resolved Date [...] as of this encounter (statuses as of 02/11/2019) Immunizations Name Administration Dates Next Due Celestone [...] Signs Not on filedocumented in this encounter Plan of Treatment Date Type Specialty Care Team Description 02/20/2019 Hospital Encounter Anesthesiology Angelito Nicole, Inpatient MD [address] [address] 02/20/2019 Anesthesia Event Demetris Rueda MD [address] [address] 02/20/2019 Surgery Angelito Nicole, ARTHROPLASTY TOTAL HIP MD CONTINUM TAPER LOC [address] [address] 03/16/2019 Office Visit Orthopedics Angelito Nicole MD [address] [address] 04/06/2019 Office Visit Orthopedics Angelito Nicole MD [address] [address] [phone] 04/10/2019 Office Visit Family Practice Major Lund MD [address] [place] [address] [phone] Name Type Priority Associated Diagnoses Date/Time XR HIP 2 VIEWS UNILAT Imaging Routine Preop examination 02/09/2019 12:50 PM EDT W/PELVIS RIGHT Name Type Priority Associated Diagnoses Order Schedule XR HIP 2 VIEWS UNILAT Imaging Routine Preop examination 1 Occurrences starting W/PELVIS RIGHT 02/09/2019 until 02/09/2019 Health Maintenance Due Date Last Done Comments [...] Educational Resources. record my blood pressure results. [employer] is safe and secure way for you [...] Educational Resources: National Heart, Lung, & Blood [place] http://nhlbi.nih.gov/hbp/index.html The DASH Diet Eating Plan http://www.nhlbi.nih.gov/health/health-topics/ topics/dash/ Academy of Nutrition & DIetetics http://eatright.org National Smoking Cessation Site http://smokefree.gov Blood Pressure < Blood Pressure Essential 149/66 (02/09/2019 No Major Lund, 140/90 hypertension 8:58 AM EDT) Note: Hypertension [...] Educational Resources. record my blood pressure results. [employer] is safe and secure way for you [...] Educational Resources: National Heart, Lung, & Blood [place] http://nhlbi.nih.gov/hbp/index.html The DASH Diet Eating Plan http://www.nhlbi.nih.gov/health/health-topics/ topics/dash/ Academy of Nutrition & DIetetics http://eatright.org National Smoking Cessation Site http://smokefree.gov Blood Pressure < 150/90 Blood Pressure 149/66 (02/09/2019 8:58 No Major Lund MD AM EDT) Note: This is an individualized treatment (blood pressure) goal for Mireille Seth: Displayed above (on the left) is your goal for blood pressure control. Your most recent blood pressure is also shown above, on the right. You should try to achieve blood pressures that are lower than your goal listed above (on the left). Glycohemoglobin A1c < 7.0 Diabetes 6.4 (02/09/2019 8:53 AM No Major Lund MD EDT) Note: This is an individualized treatment (diabetes control, HgbA1C) goal for Mireille Seth: Displayed above is your progress towards your HgbA1C goal. Your goal is shown above (on the left); your most recent HgbA1C is shown on the right. Note that lower numbers are better. Weight loss vs. 18 mo max Lifestyle 0 (02/09/2019 8:58 AM EDT) No Major Lund MD (lbs) >= 10 Note: This is an individualized lifestyle goal for Mireille Seth: Your body mass index (BMI) is more than 30. You should lose weight. A reasonable starting goal is to lose 10 pounds. Displayed above is how many pounds you have lost thus far towards your 10 pound weight loss goal. Keep immunizations current Lifestyle No Major Lund MD Note: This is an individualized lifestyle goal for Mireille Seth: Please be sure to keep up-to-date on recommended immunizations. For example, this would include a yearly influenza vaccine. Immunization status can be seen by looking at the Health Maintenance sections of your [employer], Plan of Care, and any After Visit Summaries. Take all prescribed medications as directed Self-management No Major Lund MD Note: This is an individualized self-management goal for Mireille Maicol Seth: Please take all prescribed medications as directed. 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
--- OUTSIDE RECORDS SUMMARY | 2019-03-06 11:23 | XMS REPORT | Summary of Care ---
:1935 Author Organization [facility] Address [address] [place] [address] Care Team Providers Name Role Phone Major Lund MD Primary Care Provider Sami Kaur MD Unavailable Ijeoma Burnham OD Unavailable Rob Jimenez DMD Unavailable Reason for Visit Auth/Cert Status Reason Specialty Diagnoses / Procedures Referred By Contact Referred To Contact Procedures PA TOTAL HIP ARTHROPLASTY Encounter Details Date Type Department Care Team Description 02/20/2019 - Hospital Encounter [facility] [address] [place]/Joint Desiree Hairston, Inpatient 02/27/2019 [facility] [address] [facility] [address] [place] [address] [address] [place] [address] [phone] Allergies Active Allergy Reactions Severity Noted Date Comments Milk GI Reaction 02/25/2012 CAN TOLERATE CHEESE AND ICE CREAM documented as of this encounter (statuses as of 02/28/2019) Medications Medication Sig Dispensed Refills Start Date End Date Status Cod Liver Oil 1000 Take 1 Cap by 0 Active MG Oral Cap mouth EVERY MORNING. Garlic 1000 MG Oral Take 1 Cap by 0 Active Cap mouth EVERY MORNING. Red Yeast Rice 600 Take 2 Caps 0 Active MG Oral Cap by mouth TWICE DAILY. Gantt-3 Fatty Acids Take 1 Cap by 0 Active (FISH OIL) 1000 MG mouth EVERY Oral Cap MORNING. Afqrhtu-Thkwxalns-Ez Take 1 Tab by 0 Active tamin D (CALCIUM mouth DAILY. 1200+D3 PO) Multiple Take by 0 Active Vitamins-Minerals mouth DAILY. (ICAPS) Oral Cap Olopatadine HCl Place to the 0 Active (PATADAY) 0.2 % external eye Ophthalmic Solution DAILY. cyclosporin Place to the 0 Active (RESTASIS) 0.05 % external eye Ophthalmic Emulsion TWICE DAILY. Cyanocobalamin Take 2,000 0 Active (B-12) 1000 MCG Oral mcg by mouth Cap DAILY. Probiotic Product Take 1 Cap by 0 Active (PROBIOTIC FORMULA mouth. PO) carvedilol (COREG) TAKE 1 TABLET 180 Tab 1 09/26/2018 Active 12.5 MG Oral Tab BY MOUTH TWICE A DAY pantoprazole TAKE 1 TABLET 180 Tab 3 09/26/2018 Active (PROTONIX) 40 MG BY MOUTH Oral Tab EC TWICE A DAY Valsartan-hydroCHLOR TAKE 1 TABLET 90 Tab 1 01/10/2019 Active Othiazide 160-12.5 BY MOUTH MG Oral EVERY DAY TabIndications: Essential hypertension spironolactone TAKE 2 180 Tab 0 02/14/2019 Active (ALDACTONE) 25 MG TABLETS BY Oral Tab MOUTH EVERY DAY aspirin 325 MG Oral Take 1 Tab by 60 Tab 0 02/23/2019 Active Tab EC mouth TWICE DAILY. acetaminophen Take 2 Tabs 60 Tab 0 02/23/2019 Active (TYLENOL) 500 MG by mouth Oral Tab EVERY EIGHT HOURS. cyclobenzaprine Take 1 Tab by 42 Tab 0 02/23/2019 Active (FLEXERIL) 5 MG Oral mouth THREE Tab TIMES DAILY NEEDED (muscle spasms). ferrous gluconate Take 324 mg 30 Tab 0 02/24/2019 Active 324 (38 Fe) MG Oral by mouth Tab DAILY. OXYcodone Take 1 Tab by 42 Tab 0 02/23/2019 Active (OXY-IR,OXY-FAST) 5 mouth EVERY MG Oral Tab FOUR HOURS NEEDED (post op pain). Max Daily Amount: 30 mg. sennosides-docusate Take 2 Tabs 60 Tab 0 02/23/2019 Active sodium (SENOKOT-S, by mouth TWO SENNA S) 8.6-50 MG TIMES DAILY Oral Tab NEEDED (constipation ). tramadol (ULTRAM) 50 Take 1 Tab by 28 Tab 0 02/23/2019 Active MG Oral Tab mouth EVERY SIX HOURS NEEDED (post op pain). Max Daily Amount: 200 mg. ASPIRIN 81 MG Oral Take 1 Tab by 0 02/24/20 Discontinued Tab mouth EVERY 19 EVENING. Iron 66 MG Oral Tab Take 65 mg by 0 02/24/20 Discontinued mouth DAILY. 19 Irbesartan-Hydrochlo Take 1 Tab by 90 Tab 0 01/11/2018 02/10/20 Discontinued rothiazide 150-12.5 mouth DAILY. 19 MG Oral Tab Acetaminophen-Pamabr Take by 0 02/10/20 Discontinued om 500-25 MG Oral mouth. 19 TabIndications: not Indications: taking not taking spironolactone Take 2 Tabs 180 Tab 0 10/07/2018 02/14/20 Discontinued (ALDACTONE) 25 MG by mouth 19 (Reorder) Oral Tab DAILY. HYDROcodone-acetamin Take 1 Tab by 90 Tab 0 01/27/2019 02/24/20 Discontinued ophen (NORCO) 5-325 mouth EVERY 19 MG Oral Tab EIGHT HOURS NEEDED (pain). documented as of this encounter (statuses as of 02/28/2019) Active Problems Problem Noted Date Chronic pain [...] as of this encounter (statuses as of 02/28/2019) Resolved Problems Problem Noted Date Resolved Date [...] as of this encounter (statuses as of 02/28/2019) Immunizations Name Administration Dates Next Due [place] [...] of this encounter Last Filed Vital Signs Vital Sign Reading Time Taken Comments Blood Pressure 128/66 02/27/2019 8:21 AM EDT Pulse 76 02/27/2019 8:21 AM EDT Temperature 37 02/27/2019 8:21 AM EDT C (98.6 F) Respiratory Rate 16 02/27/2019 8:21 AM EDT Oxygen Saturation 95% 02/27/2019 8:21 AM EDT Inhaled Oxygen Concentration - - Weight 86 kg (189 lb 8 oz) 02/20/2019 7:59 AM EDT Height 159.4 cm (5' 2.75") 02/20/2019 7:59 AM EDT Body Mass Index 33.84 02/20/2019 7:59 AM EDT documented in this encounter Discharge Instructions InstructionsStephen Mccarthy NP - 02/21/2019Provider's Instructions Reason for Admission or Diagnosis:OSTEOARTH NOS-PELVIS, degenerative joint diseaseright hip. Procedures this Admission:right total hip arthroplasty. Associated Condition Acutely Managed: None Secondary Procedures this Admission: None Consultations this Admission: Pre-op eval and esteban-operative medical care , physical therapy, occupational therapy, x-ray, routine labs, social work, discharge planning. Activity/Restrictions: Weight bearing as tolerated with walker. No flexion right hip greater than 90 degrees, no adduction right hip across midline, no internal roation or external rotation right hip. Skin/Wound Care: Any questions or concerns regarding dressing or hip please call Dr. Hairston or Stephen Mccarthy NP office at [phone]. Discharge Diet: Resume prior to admission diet. Special Instructions: Knee high CHAPO stockings when out of bed for 6 weeks and incentive spirometry four times a day. Follow up: 3 weeks post op, 6 weeks post op and 3 months [address] op [address] Dr[address] Hairston or Stephen Mccarthy NP. Discharge Provider: Stephen Mccarthy NP Attending: DESIREE HAIRSTON MD , Time: 14:29 02/21/2019 {Provider's stop here} Nurse's Instructions Problems to report to your Physician: Excessive pain or discomfort Fever > 100.5 degrees Difficulty breathing Increase or smell in wound drainage Skin/Wound Care: Skin intact on discharge: keep dressing dry and intact until seen by the follow up appointment. Medical Equipment/Supplies to help you at home: Walker Smoking: If you or your caregiver smoke, we recommend that you quit. For smoking cessation help, please callthe National Quit Line at . *Please Return Patient Satisfaction Survey* I understand these discharge instructions: Patient or Guardian Signature: Date and Time Physician employee development director Signature Date and Time documented in this encounter Progress Notes Kika Cartagena MD - 02/24/2019 11:59 AM EDT [facility] [place]. [address] Internal Medicine Progress Note Date of Service: 02/24/2019 Patient: Mireille Seth B #: [id number] Attending: DESIREE HAIRSTON MD ,MD History of Present Illness Mireille Seth is a 84-y.o. female with a PMH of Osteoarthritis, HTN, chronic diastolic heart failure, ANAHI. POD 4 RTHA. Subjective: She says she is doing pretty good. Feels thirsty and has dry mouth postop. Denies recent fever, chills, SOB, cough, chest pain, palpitations, diaphoresis, abdominal pain, nausea, vomiting, headache, lightheadedness, dizziness, or bladder symptoms. Objective: Vitals: Blood pressure 135/43, pulse 69, temperature 97.5 F (36.4 C), temperature source Temporal, resp. rate 18, height 5' 2.75" (1.594 m), weight 189 lb 8 oz (86 kg), SpO2 97 %, not currentlybreastfeeding. I/O: Intake/Output Summary (Last 24 hours) at 02/24/2019 1159 Last data filed at 02/24/2019 0845 Gross per 24 hour Intake 240 ml Output Net 240 ml Physical Exam: General: Cooperative, no distress HEENT: Normocephalic, atraumatic Heart: Regular rhythm, S1 S2 heard, no murmur, no JVD Lungs: clear bilaterally Abdomen: Soft, nontender, nondistended, BS normal Extremities: operated joint dressed Neuro: Alert and oriented, no focal deficits Psychiatry: Appropriate to circumstances Relevant labs and Radiology Results: Reviewed Assessment/Plan: Principal Problem: Primary osteoarthritis of right hip Elevated creatinine/BUN: Likely pre-renal with dehydration encouraged oral hydration - no coffee/soda hold Aldactone, Valsartan and HCTZ for now Monitor BMP, I&Os Chronic diastolic heart failure: No acute decompensation On home coreg, hold Aldactone, Valsartan and HCTZ for now Monitor BMP, I&Os Post RTHA: Pain control reasonable Bowel regimen ordered On aspirin 325 mg BID IS use regularly PTOT on board Author: Kika Cartagena MD Stephen Mackenzie NP - 02/21/2019 11:18 AM EDT [facility] [address] [place] [address] Orthopedic Surgery Progress Note Patient: Mireille Seth : 1935 Date of Service: 02/21/2019 Date of admission: 02/20/19 Attending: DESIREE HAIRSTON MD ,MD Post op day: 1 S: Mireille Seth is a 84-y.o. female who is 1 day status post right total hip arthroplasty. Patient sitting in recliner doing well. No problems through night. Complains of mild to moderate pain with good pain control without adverse reactions. Positive PO intake, void, flatus. Denies CP, SOB, ABD pain , N/V/D, dizziness, [place]. O: Vitals: Blood pressure 173/58, pulse 60, temperature 98 F (36.7 C), temperature source Temporal, resp. rate 18, height 5' 2.75" (1.594 m), weight 189 lb 8 oz (86 kg), SpO2 99 %, not currently . Dressing to the right hip is clean, dry, and intact. Wound/skin benign Muscle compartments soft Calfs soft and non tender There is no clinical deformity. Distal neurovasular status and range of motion is intact. Abdomen soft and non tender. Labs: Recent Labs 02/20/19 0802/21/19 0549 HGB 12.6 12.1 HCT 36.7 35.9 NA -- 136 K -- 4.8 CL -- 99 CO2 -- 28 GLUCOSE -- 164* BUN -- 21* CREATININE -- 1.2 CALCIUM -- 8.5 EGFR -- 43 Estimated Creatinine Clearance: 37.4 mL/min (based on SCr of 1.2 mg/dL). Core Measures: DVT Prophylaxis: aspirin GI Prophylaxis: not indicated Nutrition: regular Tracey remains in place for the following reason(s): No tracey present A: 1 day(s) status post right total hip arthroplasty No acute blood loss anemia History of has a past medical history of Barretts esophagus, BMI 32.0-32.9, adult, Cardiomyopathy, Carotid bruit (2010), Colon polyp (2005), Congestive Heart Failure ( ), CTS (carpal tunnel syndrome) (2011), Diverticulosis, Endometrial ca (HCC), FAMILY HISTORY OF BREAST CANCER (02/20/2008), Fibula fracture, Gastric nodule (2013), GERD (gastroesophageal reflux disease), Hearing loss, HYPERGLYCEMIA (02/20/2008), Hyperlipidemia, Hypertension, Macular degeneration, Nulliparity, OA (osteoarthritis) of knee, Obesity, Osteopenia ( 2013), Postmenopausal, Pulmonary nodule, Refusal of statin medication by patient , Sleep apnea, Statin intolerance, and Thrombocytopenia (HCC). P: Continue current treatment. Physical therapy, occupational therapy. Weight bearing as tolerated. DVT prophylaxis with aspirin, CHAPO stockings. Incentive spirometry every hour while awake. Monitor H/H. Home vs short term rehab on POD#2-3. Stephen Mccarthy NP 02/21/2019 11:18 documented in this encounter Plan of Treatment Date Type Specialty Care Team Description 03/16/2019 Office Visit Orthopedics Desiree Hairston MD [address] [address] 04/06/2019 Office Visit Orthopedics Desiree Hairston MD [address] [address] [phone] 04/10/2019 Office Visit Family Practice Major Lund MD [address] [place] [address] [phone] Health Maintenance Due Date Last Done Comments [...] Problems Progress Blood Pressure Blood Pressure Essential 128/66 No Kevon, < 140/90 hypertension (02/27/2019 MD Major 8:21 AM EDT) Note: Hypertension Care Plan Based [...] Educational Resources: National Heart, Lung, & Blood Taberg http://nhlbi.nih.gov/hbp/index.html The DASH Diet Eating Plan http://www.nhlbi.nih.gov/health/health-topics/ topics/dash/ Academy of Nutrition & DIetetics http://eatright.org National Smoking Cessation Site http://smokefree.gov Blood Pressure < Blood Pressure Essential 128/66 (02/27/2019 No Major Lund, 140/90 hypertension 8:21 AM EDT) Note: Hypertension Care Plan Based [...] Educational Resources. record my blood pressure results. Jax is safe and secure way for you [...] Educational Resources: National Heart, Lung, & Blood Taberg http://nhlbi.nih.gov/hbp/index.html The DASH Diet Eating Plan http://www.nhlbi.nih.gov/health/health-topics/ topics/dash/ Academy of Nutrition & DIetetics http://eatright.org National Smoking Cessation Site http://smokefree.gov Blood Pressure < 150/90 Blood Pressure 128/66 (02/27/2019 8:21 No Major Lund MD AM EDT) Note: [...] are better. Weight loss vs. 18 mo Lifestyle 5.5 (02/20/2019 7:59 AM EDT) No Major Lund MD max (lbs) >= 10 Note: This is an [...] Take all prescribed medications as directed Self-management Major Cooper MD Note: This is an individualized self-management goal for Mireille Seth: Please take all prescribed medications as [...] ongoing basis. documented as of this encounter Implants Implanted Type Area Refinery Operator Crude Unit Device Shelf Model / Identifier Expiration Serial / Lot Date Ringloc + Acetabular Shell Size 50 - [id number] Right: MIKY [employer] [id number] / Implanted: Qty: 1 on 02/20/2019 by Desriee Hairston MD at [facility] / [id number] Dual Mobility Acetabular Liner 40 D - [id number] Right: MIKY MACK 06/09/2027 [id number] / Implanted: Qty: 1 on 02/20/2019 by Desiree Hairston MD at [facility] / [id number] Taperloc Complete Fem Stem - So Sz 9 - [id number] Right: MIKY [employer] 10/14/2028 [id number] / Implanted: Qty: 1 on 02/20/2019 by Desiree Hairston MD at [facility] / [id number] Ceramic Option Taper Sleeve Size Std - [id number] Right: MIKY [employer] 05/03/2028 [id number] / Implanted: Qty: 1 on 02/20/2019 by Desiree Hairston MD at [facility] / [id number] Biolox Ceramic Head Size 28 - [id number] Right: MIKY [employer] 2027 [id number] / Implanted: Qty: 1 on 02/20/2019 by Desiree Hairston MD at [facility] / [id number] Arcomxl Active Articulation Bearing 40mm - [id number] Right: MIKY GIRON 08/17/2022 [id number] / Implanted: Qty: 1 on 02/20/2019 by Desiree Hairston MD at [facility] / [id number] documented as of this encounter Procedures Procedure Name Priority Date/Time Associated Diagnosis Comments HEMOGLOBIN & Routine 02/24/2019 Results for HEMATOCRIT 7:50 AM EDT this procedure are in the results section. BASIC METABOLIC PANEL Routine 02/24/2019 Results for 7:50 AM EDT this procedure are in the results section. HEMOGLOBIN & Routine 02/23/2019 Results for HEMATOCRIT 5:43 AM EDT this procedure are in the results section. BASIC METABOLIC PANEL Routine 02/23/2019 Results for 5:43 AM EDT this procedure are in the results section. PLATELET COUNT Routine 02/23/2019 Results for 5:43 AM EDT this procedure are in the results section. HEMOGLOBIN & Routine 02/22/2019 Results for HEMATOCRIT 6:17 AM EDT this procedure are in the results section. BASIC METABOLIC PANEL Routine 02/22/2019 Results for 6:17 AM EDT this procedure are in the results section. HEMOGLOBIN & Routine 02/21/2019 Results for HEMATOCRIT 5:49 AM EDT this procedure are in the results section. BASIC METABOLIC PANEL Routine 02/21/2019 Results for 5:49 AM EDT this procedure are in the results section. [facility] SCANNED DOCUMENT 02/20/2019 12:00 PM EDT SIGN PERMIT 02/20/2019 12:00 PM EDT XR HIP 2 VIEWS UNILAT Routine 02/20/2019 Results for W/PELVIS RIGHT 10:47 AM EDT this procedure are in the results section. HC GLUCOSE, BY Routine 02/20/2019 Results for MONITOR 10:18 AM EDT this procedure are in the results section. TISSUE EXAM Routine 02/20/2019 Primary Results for 9:14 AM EDT osteoarthritis of this procedure right hip are in the results section. MRSA BY PCR (NASAL) STAT 02/20/2019 Results for 8:17 AM EDT this procedure are in the results section. HEMOGLOBIN & STAT 02/20/2019 Results for HEMATOCRIT 8:05 AM EDT this procedure are in the results section. ARTHROPLASTY TOTAL Planned Trip 02/20/2019 Primary HIP CONTINUM TAPER to OR 7:36 AM EDT osteoarthritis of LOC right hip XR CHEST 2 VIEW PA Routine 02/09/2019 Results for AND LATERAL 12:51 PM EDT this procedure (STANDARD) are in the results section. PRE-OP 12-LEAD EKG Routine 02/09/2019 Primary Results for (PAS) 9:12 AM EDT osteoarthritis of this procedure right hip are in the results section. CBC WITH DIFFERENTIAL Routine 02/09/2019 Results for 9:02 AM EDT this procedure are in the results section. TYPE AND SCREEN STAT 02/09/2019 Results for 9:02 AM EDT this procedure are in the results section. STAPH AUREUS SCREEN Routine 02/09/2019 Results for BY PCR (PAS PATIENTS 9:02 AM EDT this procedure ONLY) are in the results section. COMPREHENSIVE Routine 02/09/2019 Results for METABOLIC PANEL 9:02 AM EDT this procedure are in the results section. PROTHROMBIN TIME Routine 02/09/2019 Results for 9:02 AM EDT this procedure are in the results section. GLYCOHEMOGLOBIN Routine 02/09/2019 Results for (POCT) 8:53 AM EDT this procedure are in the results section. documented in this encounter Results BASIC METABOLIC PANEL (02/24/2019 7:50 AM EDT) Glucose 130 (H) 70 - 99 mg/dl [facility] BUN 34 (H) 7 - 17 mg/dl [facility] Creatinine 1.4 (H) 0.7 - 1.2 mg/dl [facility] Sodium 134 134 - 145 mmol/L [facility] Potassium 4.8 3.5 - 5.1 mmol/L [facility] Chloride 100 98 - 107 mmol/L [facility] CO2 29 22 - 30 mmol/L [facility] Calcium 8.4 8.3 - 10.1 mg/dl [facility] eGFR 36 See Interpretation [facility] Comment: Below ml/min/1.73ml GROUP Sq LABORATORY Estimated GFR Interpretation: Above 60ml/min/1.73m2 = Normal Renal Function 30-59 ml/min/1.73m2 = Stage 3 Chronic Kidney Disease 15-29 ml/min/1.73m2 = Stage 4 Chronic Kidney Disease Less than 15 ml/min/1.73m2 = Stage 5 Chronic Kidney Disease The GFR value is calculated using the Modification of Diet in Renal Disease ( MDRD) Study Equation which can be found at: https://www.kidney.org/content/ynnr-seddp-ozekbhzn BUN/Creatinine 24 (H) 6 - 22 RATIO [facility] Anion Gap 5 3 - 11 mmol/L [facility] Specimen Blood Performing Organization Address City/[facility] Phone Number [facility] [address] [facility] [place] [address] HEMOGLOBIN & HEMATOCRIT (02/24/2019 7:50 AM EDT) Hemoglobin 11.6 11.2 - 15.7 [facility] Comment: g/dL GROUP LAB[facility]ATORY Methodology was changed 06/09/2018. Please note updated reference range and units. Hematocrit 34.8 34.1 - 44.9 % [facility] Specimen Blood Performing Organization Address [facility] Phone Number [facility] [address] [facility] [place] [address] BASIC METABOLIC PANEL (02/23/2019 5:43 AM EDT) Glucose 159 (H) 70 - 99 mg/dl [facility] BUN 30 (H) 7 - 17 mg/dl [facility] Creatinine 1.3 (H) 0.7 - 1.2 mg/dl [facility] Sodium 137 134 - 145 mmol/L [facility] Potassium 4.3 3.5 - 5.1 mmol/L [facility] Chloride 98 98 - 107 mmol/L [facility] CO2 32 (H) 22 - 30 mmol/L [facility] Calcium 8.5 8.3 - 10.1 mg/dl [facility] eGFR 39 See Interpretation [facility] Comment: Below ml/min/1.73ml GROUP LAB[facility]ATORY Estimated GFR Interpretation: Above 60ml/min/1.73m2 = Normal Renal Function 30-59 ml/min/1.73m2 = Stage 3 Chronic Kidney Disease 15-29 ml/min/1.73m2 = Stage 4 Chronic Kidney Disease Less than 15 ml/min/1.73m2 = Stage 5 Chronic Kidney Disease The GFR value is calculated using the Modification of Diet in Renal Disease ( MDRD) Study Equation which can be found at: https://www.kidney.org/content/yvlu-gfked-tuoexbqx BUN/Creatinine 23 (H) 6 - 22 RATIO [facility] Anion Gap 7 3 - 11 mmol/L [facility] Specimen Blood Performing Organization Address [facility] Phone Number [facility] [address] [place] [address] PLATELET COUNT (02/23/2019 5:43 AM EDT) Platelet Count 127 (L) 182 - 369 [facility] Comment: K/uL GROUP LABORATORY Methodology was changed 06/09/2018. Please note updated reference range and units. Specimen Blood Performing Organization Address [facility] Phone Number [facility] [address] [place] [address] HEMOGLOBIN & HEMATOCRIT (02/23/2019 5:43 AM EDT) Hemoglobin 12.2 11.2 - 15.7 [facility] Comment: g/dL GROUP LABORATORY Methodology was changed 06/09/2018. Please note updated reference range and units. Hematocrit 36.8 34.1 - 44.9 % [facility] Specimen Blood Performing Organization Address [facility] Phone Number [facility] [address] [place] [address] BASIC METABOLIC PANEL (02/22/2019 6:17 AM EDT) Glucose 147 (H) 70 - 99 mg/dl [facility] BUN 28 (H)Comment: 7 - 17 mg/dl [facility] hemolyzed. LABORATORY Results may be affected. Creatinine 1.2 0.7 - 1.2 mg/dl [facility] Sodium 133 (L) 134 - 145 mmol/L [facility] Potassium 4.5Comment: 3.5 - 5.1 mmol/L [facility] hemolyzed. LABORATORY Results may be affected. Chloride 98 98 - 107 mmol/L [facility] CO2 27 22 - 30 mmol/L [facility] Calcium 8.1 (L) 8.3 - 10.1 mg/dl [facility] eGFR 43 See Interpretation [facility] Comment: Below ml/min/1.73ml [facility] LAB[facility]AT[facility] Estimated GFR Interpretation: Above 60ml/min/1.73m2 = Normal Renal Function 30-59 ml/min/1.73m2 = Stage 3 Chronic Kidney Disease 15-29 ml/min/1.73m2 = Stage 4 Chronic Kidney Disease Less than 15 ml/min/1.73m2 = Stage 5 Chronic Kidney Disease The GFR value is calculated using the Modification of Diet in Renal Disease ( MDRD) Study Equation which can be found at: https://www.kidney.org/content/tnjr-dfzuf-txqxcnms BUN/Creatinine 23 (H) 6 - 22 RATIO [facility] Anion Gap 8 3 - 11 mmol/L [facility] Specimen Blood Performing Organization Address [facility] Phone Number [facility] [address] [place] [address] [phone] HEMOGLOBIN & HEMATOCRIT (02/22/2019 6:17 AM EDT) Hemoglobin 12.0 11.2 - 15.7 [facility] Comment: g/dL [facility] Methodology was changed 06/09/2018. Please note updated reference range and units. Hematocrit 35.6 34.1 - 44.9 % [facility] Specimen Blood Performing Organization Address [facility] Phone Number [facility] [address] [place] [address] BASIC METABOLIC PANEL (02/21/2019 5:49 AM EDT) Glucose 164 (H) 70 - 99 mg/dl [facility] LABORATORY BUN 21 (H) 7 - 17 mg/dl [facility] Creatinine 1.2 0.7 - 1.2 mg/dl [facility] Sodium 136 134 - 145 mmol/L [facility] Potassium 4.8 3.5 - 5.1 mmol/L [facility] Chloride 99 98 - 107 mmol/L [facility] CO2 28 22 - 30 mmol/L [facility] Calcium 8.5 8.3 - 10.1 mg/dl [facility] eGFR 43 See Interpretation [facility] Comment: Below ml/min/1.73ml [facility] LABORATORY Estimated GFR Interpretation: Above 60ml/min/1.73m2 = Normal Renal Function 30-59 ml/min/1.73m2 = Stage 3 Chronic Kidney Disease 15-29 ml/min/1.73m2 = Stage 4 Chronic Kidney Disease Less than 15 ml/min/1.73m2 = Stage 5 Chronic Kidney Disease The GFR value is calculated using the Modification of Diet in Renal Disease ( MDRD) Study Equation which can be found at: https://www.kidney.org/content/irqg-ogfps-ohjqnasw BUN/Creatinine 18 6 - 22 RATIO [facility] LABORATORY Anion Gap 9 3 - 11 mmol/L [facility] Specimen Blood Performing Organization Address City/[facility] Phone Number [facility] [address] [place] [address] HEMOGLOBIN & HEMATOCRIT (02/21/2019 5:49 AM EDT) Hemoglobin 12.1 11.2 - 15.7 [facility] Comment: g/dL [facility] Methodology was changed 06/09/2018. Please note updated reference range and units. Hematocrit 35.9 34.1 - 44.9 % [facility] Specimen Blood Performing Organization Address [facility] Phone Number [facility] [address] [place] [address] XR HIP 2 VIEWS UNILAT W/PELVIS RIGHT (02/20/2019 10:47 AM EDT) Specimen Impressions Performed At Portable study showing recent postoperative changes with right hip arthroplasty now in position. Urgency: Routine. This is a routine medical imaging report. Recommendation: No specific imaging recommendation. Signed by Rashaun Leal MD on 02/20/2019 10:59 AM Narrative Performed At Procedure(s): XR HIP 2 VIEWS UNILAT W/PELVIS RIGHT Date of service: 02/20/2019 10:16 AM Provided clinical information: 84 years, Female, "post op" Procedure and materials: One view pelvis, 2 views right Comparison studies: 02/09/2019, 10/17/2018 Observations: . Right hip arthroplasty now seen in position Hardware is intact. No obvious periprosthetic fracture is seen. Deformity right mid femoral shaft which is either sequela of prior trauma or developmental again seen unchanged from previous exams. Procedure Note Interface, Rad Results - 02/20/2019 11:01 AM EDT Procedure(s): XR HIP 2 VIEWS UNILAT W/PELVIS RIGHT Date of service: 02/20/2019 10:16 AM Provided clinical information: 84 years, Female, "post op" Procedure and materials: One view pelvis, 2 views right Comparison studies: 02/09/2019, 10/17/2018 Observations: . Right hip arthroplasty now seen in position Hardware is intact. No obvious periprosthetic fracture is seen. Deformity right mid femoral shaft which is either sequela of prior trauma or developmental again seen unchanged from previous exams. IMPRESSION Portable study showing recent postoperative changes with right hip arthroplasty now in position. Urgency: Routine. This is a routine medical imaging report. Recommendation: No specific imaging recommendation. Signed by Rashaun Leal MD on 02/20/2019 10:59 AM GLUCOSE (POCT) (02/20/2019 10:18 AM EDT) Glucose POCT 172 (H) 70 - 99 mg/dl POINT OF CARE Result Comment: TESTING Performed at: [facility] POCT Dexter Crouch MD, Laboratory [facility] [address] [place] [address] Specimen Performing Organization Address City/State/Zipcode Phone Number POINT OF CARE TESTING TISSUE EXAM (02/20/2019 9:14 AM EDT) Case Report Surgical Pathology Case: [id number] [facility] Authorizing Provider: Desiree Hairston MD Collected: 02/20/2019 09:14 AM Ordering Location: [facility] Preprocedure Received: 02/20/2019 10:42 AM Pathologist: Dexter Crouch MD Specimen: HIP RIGHT, right hip bone and tissue Pre-Op Diagnosis M16.11 - Primary [facility] osteoarthritis of [facility] right hip [ICD-10-CM] Post-Op Diagnosis M16.11 - Primary [facility] osteoarthritis of [facility] right hip [ICD-10-CM] FINAL DIAGNOSIS Bone and tissue, right hip, arthroplasty : [facility] Electronically [facility] signed by Miko, -Osteoarthritis Dexter Curry MD on -Synovial tissue and benign fibroadipose tissue with chronic inflammation and reactive changes 02/21/2019 at 1:19 PM Microscopic Microscopic [facility] Description examination is [facility] performed. Gross Description 1. The specimen is received in formalin labeled, with the patient's name, MRN, and right hip bone and tissue and consists of a grossly identifiable gurrola-pink and dark red, intact femoral head, measuring [facility] 5.6 x 4.5 x 4.5 cm. The articular surface of the femoral head is granular and eburnated and the cut surface is trabecular. The fovea centralis is present and is unremarkable and the round ligament is [facility] absent. Sectionin of the femoral head reveals no masses or lesions. Also received separately in the container are multiple additional shaped fragments of dark pink and yellow mixed fibrous, soft and o sseous tissue measuring 5.0 x 5.0 cm. Machine Builder samples of this tissue are submitted in cassette 1A. MM Gross description is reviewed before signout by Dexter Crouch MD Specimen Bone Performing Organization Address [facility] Phone Number [facility] [address] [facility] [place] [place] [id number] MRSA BY PCR (NASAL) (02/20/2019 8:17 AM EDT) MRSA BY PCR Negative for MRSA Negative [facility] Comment: LABORATORY Testing performed by PCR. Specimen Nose Performing Organization Address [facility] Phone Number [facility] [address] [facility] [place] [address] HEMOGLOBIN & HEMATOCRIT (02/20/2019 8:05 AM EDT) Hemoglobin 12.6 11.2 - 15.7 [facility] Comment: g/dL [facility] Methodology was changed 06/09/2018. Please note updated reference range and units. Hematocrit 36.7 34.1 - 44.9 % [facility] Specimen Blood Performing Organization Address [facility] Phone Number [facility] [address] [place] [address] [phone] XR CHEST 2 VIEW PA AND LATERAL (STANDARD) (02/09/2019 12:51 PM EDT) Specimen Impressions Performed At 1. No acute cardiopulmonary disease is seen. Urgency: Routine. This is a routine medical imaging report. Recommendation: No specific imaging recommendation. Signed by Devin Gill MD, JER, FCPS on 02/09/2019 1:20 PM Narrative Performed At Procedure(s): XR CHEST 2 VIEW PA AND LATERAL (STANDARD) Date of service: 02/09/2019 12:36 PM Provided clinical information: 84 years, Female, " " Procedure and materials: Standard protocol. Procedure: CHEST 2 VIEWS Technique: PA and lateral views of the chest were acquired. Comparison: X-ray 02/25/2012 Findings: There is no confluent pulmonary parenchymal opacity seen. Cardioaortic silhouette appears unremarkable. There is normal pulmonary vascularity. The gordon are normal. No pleural effusion is seen. No pneumothorax is seen. Trachea midline. Mild endplate remodeling is seen of thoracic spine. No acute bony abnormality is seen. Procedure Note Interface, Rad Results - 02/09/2019 1:22 PM EDT Procedure(s): XR CHEST 2 VIEW PA AND LATERAL (STANDARD) Date of service: 02/09/2019 12:36 PM Provided clinical information: 84 years, Female, " " Procedure and materials: Standard protocol. Procedure: CHEST 2 VIEWS Technique: PA and lateral views of the chest were acquired. Comparison: X-ray 02/25/2012 Findings: There is no confluent pulmonary parenchymal opacity seen. Cardioaortic silhouette appears unremarkable. There is normal pulmonary vascularity. The gordon are normal. No pleural effusion is seen. No pneumothorax is seen. Trachea midline. Mild endplate remodeling is seen of thoracic spine. No acute bony abnormality is seen. IMPRESSION 1. No acute cardiopulmonary disease is seen. Urgency: Routine. This is a routine medical imaging report. Recommendation: No specific imaging recommendation. Signed by Devin Gill MD, JER, FCPS on 02/09/2019 1:20 PM PRE-OP 12-LEAD EKG (PAS) (02/09/2019 9:12 AM EDT) Ventricular Rate 58 BPM CARDIOLOGY DEPARTMENT Atrial rate 58 BPM CARDIOLOGY DEPARTMENT P-R Interval 160 ms CARDIOLOGY DEPARTMENT QRS Duration 80 ms CARDIOLOGY DEPARTMENT Q-T Interval 436 ms CARDIOLOGY DEPARTMENT QTC Calculation 428 ms CARDIOLOGY (Bezet) DEPARTMENT P [place] -16 degrees CARDIOLOGY DEPARTMENT R [place] -16 degrees CARDIOLOGY DEPARTMENT T [place] -3 degrees CARDIOLOGY DEPARTMENT Diagnosis Line Sinus bradycardia CARDIOLOGY Cannot rule out Anterior infarct , age undetermined DEPARTMENT Abnormal ECG When compared with ECG of 25-FEB-2012 10:17, No significant change was found Confirmed by KIRA LINO, JONE ([id number]) ([id number]) on 02/11/2019 10:03:53 PM Specimen Performing Organization Address City/[facility]/Zipcode Phone Number CARDIOLOGY DEPARTMENT STAPH AUREUS SCREEN BY PCR (PAS PATIENTS ONLY) (02/09/2019 9:02 AM EDT) MRSA by PCR Negative for MRSA Negative [facility] Staph aureus by Positive for Staph Aureus (AA) Negative [facility] PCR Comment: [facility] Testing performed by PCR. Specimen Nose Performing Organization Address [facility]ode Phone Number [facility] [address] [place] [address] TYPE AND SCREEN (02/09/2019 9:02 AM EDT) ABO/RH Type A POS [facility] Antibody Screen Interp NEG [facility] Specimen Blood Performing Organization Address [facility] Phone [place] [address] COMPREHENSIVE METABOLIC PANEL (02/09/2019 9:02 AM EDT) Sodium 141 134 - 145 mmol/L [facility] Potassium 4.4 3.5 - 5.1 mmol/L [facility] Chloride 104 98 - 107 mmol/L [facility] CO2 28 22 - 30 mmol/L [facility] Calcium 9.6 8.3 - 10.1 mg/dl [facility] Albumin 4.2 3.5 - 5.0 g/dl [facility] BUN 19 (H) 7 - 17 mg/dl [facility] Creatinine 1.1 0.7 - 1.2 mg/dl [facility] Glucose 144 (H) 70 - 99 mg/dl [facility] Total Protein 7.3 6.3 - 8.2 g/dl [facility] Total Bilirubin 0.4 0.0 - 1.1 MG/DL [facility] AST 25 15 - 46 U/L [facility] ALT 18 9 - 52 U/L [facility] Alkaline 61 40 - 150 U/L [facility] Phosphatase [facility] eGFR 48 See Interpretation [facility] Comment: Below ml/min/1.73ml [facility] Estimated GFR Interpretation: Above 60ml/min/1.73m2 = Normal Renal Function 30-59 ml/min/1.73m2 = Stage 3 Chronic Kidney Disease 15-29 ml/min/1.73m2 = Stage 4 Chronic Kidney Disease Less than 15 ml/min/1.73m2 = Stage 5 Chronic Kidney Disease The GFR value is calculated using the Modification of Diet in Renal Disease ( MDRD) Study Equation which can be found at: https://www.kidney.org/content/rbpz-szvep-ighieldv BUN/Creatinine 17 6 - 22 RATIO [facility] LABORATORY Anion Gap 9 3 - 11 mmol/L [facility] A/G Ratio 1.4 0.8 - 2.0 ratio [facility] Specimen Blood Performing Organization Address [facility] Phone Number [facility] [address] [place] [address] PROTHROMBIN TIME (02/09/2019 9:02 AM EDT) INR 1.04 0.79 - 1.15 [facility] Comment: [facility] LABORATORY INR Therapeutic Range: 2.0 - 3.5 Protime 13.3 11.4 - 14.3 sec [facility] Specimen Blood Performing Organization Address [facility] Phone Number [facility] [address] [place] [address] CBC WITH DIFFERENTIAL (02/09/2019 9:02 AM EDT) WBC Count 6.28 3.98 - 10.04 K/uL [facility] RBC Count 4.07 3.93 - 5.22 M/UL [facility] Hemoglobin 13.0 11.2 - 15.7 g/dL [facility] Hematocrit 38.3 34.1 - 44.9 % [facility] MCV 94.1 79.4 - 94.8 FL [facility] MCH 31.9 25.6 - 32.2 PG [facility] MCHC 33.9 32.2 - 35.5 g/dL [facility] Platelet Count 142 (L) 182 - 369 K/uL [facility] MPV 12.6 (H) 9.4 - 12.3 FL [facility] RDW 11.8 11.7 - 14.4 % [facility] Neutrophil % 65.4 34.0 - 71.1 % [facility] Lymphocyte % 21.2 19.3 - 51.7 % [facility] Monocyte % 8.0 4.7 - 12.5 % [facility] Eosinophil % 4.5 0.7 - 5.8 % [facility] Basophil % 0.6 0.1 - 1.2 % [facility] nRBC % 0.0 0.0 - 0.2 % [facility] Neutrophil # 4.11 1.56 - 6.13 K/UL [facility] Lymphocyte # 1.33 1.18 - 3.74 K/UL [facility] Monocyte # 0.50 0.24 - 0.86 K/UL [facility] Eosinophil # 0.28 0.04 - 0.36 K/UL [facility] Basophil # 0.04 0.01 - 0.08 K/UL [facility] Immature Gran % 0.3 0.0 - 0.4 % [facility] Immature Gran # 0.02 0.00 - 0.03 K/uL [facility] NRBC # 0.00 0.00 - 0.12 K/uL [facility] Specimen Blood Performing Organization Address City/[facility]/Zipcode Phone Number [facility] [address] [place] [address] [phone] GLYCOHEMOGLOBIN (POCT) (02/09/2019 8:53 AM EDT) GLYCOHEMOGLOBIN (POCT) 6.4 (A) 3.9 - 5.6 % [facility] POCT Specimen Performing Organization Address City/[facility] Phone Number [facility] POCT [address] [place] [address] documented in this encounter Visit Diagnoses Diagnosis Primary osteoarthritis of right hip - Primary Primary localized osteoarthrosis, pelvic region and thigh documented in this encounter Administered Medications Medication Order MAR Action Action Date Dose Rate Site acetaminophen (TYLENOL) tablet Given 02/26/2019 8:26 PM EDT 1,000 mg 1,000 mg 1,000 mg, Oral, Q8 HRS, First dose on Wed02/20/19 at 1210, Until Discontinued Given 02/26/2019 12:02 PM EDT 1,000 mg Given 02/25/2019 8:45 PM EDT 1,000 mg acetaminophen (TYLENOL) tablet 1,000 mg Given 02/20/2019 8:16 AM EDT 1,000 mg 1,000 mg, Oral, NOW, 1 dose, Wed02/20/19 at 0750 aspirin (ECOTRIN) enteric coated tablet 325 Given 02/27/2019 9:08 AM EDT 325 mg mg 325 mg, Oral, BID, 30 doses, First dose on Wed02/21/19 at 0900, Last dose on Wed03/07/19 at 2100 Given 02/26/2019 8:26 PM EDT 325 mg Given 02/26/2019 8:49 AM EDT 325 mg bisacodyl (DULCOLAX) enteric coated tablet 10 Given 02/23/2019 5:11 AM EDT 10 mg mg 10 mg, Oral, DAILY PRN, Starting Wed02/20/19 at 1200, Until Wed02/27/19 at 1212, Constipation - 2nd line if no stooling 8 hours after administration of 1st line agent Given 02/22/2019 12:30 AM EDT 10 mg carvedilol (COREG) tablet 12.5 mg Given 02/27/2019 8:07 AM EDT 12.5 mg 12.5 mg, Oral, BID WITH MEALS, First dose on Wed02/20/19 at 1700, Until Discontinued Given 02/26/2019 4:28 PM EDT 12.5 mg Given 02/26/2019 8:48 AM EDT 12.5 mg ceFAZolin (ANCEF) IV premix 1,000 mg New Bag 02/21/2019 12:13 AM EDT 1,000 mg 1,000 mg, Intravenous, Q8 HRS, 2 doses, First dose on Wed02/20/19 at 1210, Last dose on Wed02/21/19 at 0100 New Bag 02/20/2019 5:04 PM EDT 1,000 mg celeCOXIB (CeleBREX) capsule 200 mg Given 02/27/2019 9:08 AM EDT 200 mg 200 mg, Oral, Q12 HRS, First dose on Wed02/20/19 at 1210, Until Discontinued Given 02/26/2019 8:26 PM EDT 200 mg Given 02/26/2019 8:48 AM EDT 200 mg celeCOXIB (CeleBREX) capsule 200 mg Given 02/20/2019 8:16 AM EDT 200 mg 200 mg, Oral, NOW, 1 dose, Wed02/20/19 at 0750 cyclobenzaprine (FLEXERIL) tablet 5 mg Given 02/26/2019 11:55 AM EDT 5 mg 5 mg, Oral, TID PRN, Starting Wed02/20/19 at 1200, Until Wed02/27/19 at 1159, Muscle Spasm - 1st line Given 02/22/2019 3:08 PM EDT 5 mg Given 02/22/2019 12:30 AM EDT 5 mg ferrous gluconate tablet 324 mg Given 02/27/2019 9:08 AM EDT 324 mg 324 mg, Oral, DAILY, First dose on Wed02/20/19 at 1210, Until Discontinued Given 02/26/2019 8:49 AM EDT 324 mg Given 02/25/2019 8:56 AM EDT 324 mg gabapentin (NEURONTIN) capsule 300 mg Given 02/26/2019 8:25 PM EDT 300 mg 300 mg, Oral, QHS, First dose on Wed02/20/19 at 2100, Until Discontinued Given 02/25/2019 8:45 PM EDT 300 mg Given 02/24/2019 8:48 PM EDT 300 mg gabapentin (NEURONTIN) capsule 300 mg Given 02/20/2019 8:16 AM EDT 300 mg 300 mg, Oral, NOW, 1 dose, Wed02/20/19 at 0750 magnesium hydroxide (MILK OF MAGNESIA) 400 Given 02/22/2019 8:12 PM EDT 30 mL MG/5ML oral suspension 30 mL 30 mL, Oral, QHS, First dose on Wed02/20/19 at 2100, Until Discontinued Given 02/21/2019 8:41 PM EDT 30 mL Given 02/20/2019 8:34 PM EDT 30 mL medication communication Acknowledged HOLD order 02/24/2019 9:00 AM 0 Eye-Right order EDT Topical, DAILY, First dose on Wed02/20/19 at 1210, Until Discontinued Acknowledged HOLD order 02/23/2019 9:00 AM EDT 0 Eye-Right Acknowledged HOLD order 02/22/2019 9:00 AM EDT 0 Eye-Right normal saline IV New Bag 02/20/2019 2:00 PM EDT 100 mL/hr Intravenous, at 100 mL/hr, CONTINUOUS, Starting Wed02/20/19 at 1210, Until Wed02/27/19 at 1212 OXYcodone (OXY-IR,OXY-FAST) immediate release Given 02/21/2019 10:54 PM EDT 10 mg tablet 10 mg 10 mg, Oral, Q4 HRS PRN, Starting Wed02/20/19 at 1200, Until Wed02/27/19 at 1159, Severe Pain (pain scale 7-10) - PO - 1st line - if immediate effect not required and patient can tolerate PO OXYcodone (OXY-IR,OXY-FAST) immediate release Given 02/27/2019 1:40 AM EDT 5 mg tablet 5 mg 5 mg, Oral, Q4 HRS PRN, Starting Wed02/20/19 at 1200, Until Wed02/27/19 at 1159, Moderate Pain (pain scale 4-6) - PO - 1st line - if immediate effect not required and patient can tolerate PO Given 02/25/2019 8:46 PM EDT 5 mg Given 02/23/2019 9:53 PM EDT 5 mg pantoprazole (PROTONIX) enteric coated tablet Given 02/27/2019 9:08 AM EDT 40 mg 40 mg 40 mg, Oral, DAILY, First dose on Wed02/20/19 at 1210, Until Discontinued Given 02/26/2019 8:49 AM EDT 40 mg Given 02/25/2019 8:56 AM EDT 40 mg polyethylene glycol (MIRALAX) oral pack 17 g Given 02/26/2019 4:28 PM EDT 17 g 17 g, Oral, QPM, First dose on Wed02/20/19 at 1700, Until Discontinued Given 02/25/2019 5:55 PM EDT 17 g Given 02/22/2019 5:26 PM EDT 17 g sennosides-docusate sodium (SENOKOT-S, SENNA Given 02/26/2019 8:27 PM EDT 2 Tabs S) 8.6-50 mg 2 Tab 2 Tab, Oral, BID PRN, Starting Wed02/20/19 at 1200, Until Wed02/27/19 at 1212, Constipation 1st line if no stooling in last 24 hours Given 02/22/2019 10:19 AM EDT 2 Tabs tramadol (ULTRAM) tablet 50 mg Given 02/25/2019 8:59 AM EDT 50 mg 50 mg, Oral, Q6 HRS PRN, Starting Wed02/20/19 at 1200, Until Wed02/27/19 at 1159, Mild Pain (pain scale 1-3) - PO - 1st line - if immediate effect not required and patient can tolerate PO Given 02/24/2019 8:35 AM EDT 50 mg Given 02/23/2019 8:00 AM EDT 50 mg tranexamic Acid (CYKLOKAPRON) IV mixture New Bag 02/20/2019 1:38 PM EDT 1, 000 mg for Total Joint Replacement 1,000 mg 1,000 mg, Intravenous, NOW, 1 dose, Wed02/20/19 at 1210 documented in this encounter Insurance Payer Benefit Plan / Subscriber ID Effective Dates Phone Address Type Group AETNA MEDICARE AETNA MEDICARE xxxxxxxx 2017-Present [employer] ADVANTAGE ADVANTAGE (Home) [place] [phone] [place], [place] (Work) [id number] documented as of this encounter Advance Directives Type Date Recorded 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 Yes Order was discussed with: Patient I discussed all options and patient/surrogate requested and agreed to: Full Code
--- OUTSIDE RECORDS SUMMARY | 2019-03-06 11:23 | XMS REPORT | Summary of Care ---
:1935 Author Organization [facility] Address [address] [address] Care Team Providers Name Role Phone Major Lund MD Primary Care Provider Sami Kaur MD Unavailable Ijeoma Burnham OD Unavailable Rob Jimenez DMD Unavailable Encounter Details Date Type Department Care Team Description 02/09/2019 Hospital Encounter [facility] [address] [address] Allergies Active Allergy Reactions Severity Noted Date [...] 0 Active Oral Cap mouth TWICE DAILY. [place]-3 Fatty Acids Take 1 Cap by 0 Active (FISH OIL) 1000 MG Oral mouth EVERY Cap MORNING. Iron 66 MG Oral Tab Take 65 mg by 0 Active mouth DAILY. Bncjonq-Fasdbexqw-Thqha Take 1 Tab by 0 Active in [...] Orthopedics Angelito Nicole MD [address] [address] [phone] 04/10/2019 Office Visit Family Practice Major Lund MD [address] [place] [address] [phone] Health Maintenance Due Date Last Done Comments [...] Educational Resources. record my blood pressure results. [employer] is safe and secure way for you [...] Educational Resources: National Heart, Lung, & Blood Viola http://nhlbi.nih.gov/hbp/index.html The DASH Diet Eating Plan http://www.nhlbi.nih.gov/health/health-topics/ [...] Educational Resources. record my blood pressure results. [employer] is safe and secure way for you [...] Educational Resources: National Heart, Lung, & Blood Viola http://nhlbi.nih.gov/hbp/index.html The DASH Diet Eating Plan http://www.nhlbi.nih.gov/health/health-topics/ [...] ongoing basis. documented as of this encounter Procedures Procedure Name Priority Date/Time Associated Diagnosis Comments XR CHEST 2 VIEW PA Routine 02/09/2019 12:51 PM Results for this AND LATERAL EDT procedure are in (STANDARD) the results section. documented in this encounter Results XR CHEST 2 VIEW PA AND LATERAL (STANDARD) (02/09/2019 12:51 PM EDT) Specimen Impressions Performed At 1. No acute cardiopulmonary disease is seen. Urgency: Routine. This is a routine medical imaging report. Recommendation: No specific imaging recommendation. Signed by Devin Gill MD, MHA, FCPS on 02/09/2019 1:20 PM Narrative Performed [...] imaging recommendation. 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
--- OUTSIDE RECORDS SUMMARY | 2019-03-06 11:23 | XMS REPORT | Continuity of Care Document ---
:1935 External Reference #:[id number] Author Name Rosemarie Sanchez NMirta (transmitted by agent of provider Deanne Peralta) Address [facility] [place] [address] Care Team Providers Name Role Phone Major Lund MD - Family Medicine Care Team Information Ticket Agent [phone] Problems Active Problems Provider Date Chronic diastolic heart failure Sami Kaur M.D. Onset: 05/20/2011 Mitral valve disorder Sami Kaur M.D. Onset: 09/02/2011 Benign essential hypertension Sami Kaur M.D. Onset: 09/02/2011 Essential hypertension Sami Kaur M.D. Onset: 09/17/2015 Social History Type Date Description Comments Sex Unknown ETOH Use Rarely consumes alcohol Tobacco Use Start: Unknown Patient is a former quit in 1972 End: Unknown smoker Recreational Drug Use Never Used Drugs Smoking Status Reviewed: 02/13/19 Patient is a former quit in 1972 smoker Exercise Type/Frequency Exercises regularly stationary bike 5 minutes daily. - leg problems prohibiting recently Allergies, Adverse Reactions, Alerts Active Allergies Reaction Severity Comments Date Amlodipine Lower leg edema 10/20/2018 Lipitor myalgias 10/20/2018 Inactive Allergies NKDA 02/10/2005 Medications Active Medications SIG Qnty Indications Ordering Date Provider Valsartan-Hydrochloroth 1 tab by mouth 90tabs Sami Berumen 10/20/2018 iazide every day Sandra Kaur 160-12.5mg Tablets Icaps MV One by mouth Sami Berumen 10/19/2018 Tablets daily Sandra Kaur Compression Stockings wear on both 2units R60.9 Rosemarie Sanchez, 11/02/2017 Misc legs daily and N.P. remove at night Protonix 2 by mouth Unknown 09/29/[address] every day Red Yeast Rice twice a day Sami Berumen 09/10/2016 600mg Sandra Kaur Tablets Coreg 1 by mouth 180tabs Sami Berumen 09/17/2015 12.5mg Tablets twice a day Sandra Kaur Cpap QHS Sami Berumen 10/17/2007 Sandra Kaur Cod Liver Oil 1 tablet by Sami Berumen 02/10/2005 Tablets mouth daily Sandra Kaur Aspirin 81 1 by mouth Unknown 81mg Tablets DR every day Spironolactone 1 by mouth Unknown 25mg Tablets every day Probiotic Formula 1 daily Unknown 1-181Unxnkmy-am Capsules B12 1 tablet po Unknown 1000mcg daily Calcium 1200MG Vit D3 Take one by Unknown 25mcg mouth daily Pataday 1 drop each eye Unknown 0.2% daily Iron 1 tablet daily Unknown 28mg Restasis one drops both Unknown 0.05% Emulsion eyes twice a day Vicodin 1 po qhs pain 30tabs Unknown 5-325mg Tablets Garlic 1 po qd Unknown 1000mg Capsules [place]-3 1 po qd. 30caps Unknown 360-1200mg Capsules History Medications Irbesartan 1 by mouth 30tabs Rosemarie Sanchez, 09/27/2018 - 150mg Tablets every day N.P. 10/20/2018 Hydrochlorothiazide 1 by mouth 30caps Rosemarie Sanchez, 09/27/2018 - 12.5mg Capsules every day N.P. 10/19/2018 Immunizations Description No Information Available Vital Signs Date Vital Result Comment 02/13/2019 2:29pm Height 62 inches 5'2" Weight 190.12 lb with shoes Heart Rate 78 /min radial regular BP Systolic 152 mmHg Lue resting 15 min BP Diastolic 64 mmHg Lue resting 15 min BP Systolic Sitting 160 mmHg Lue reg cuff BP Diastolic Sitting 72 mmHg Lue reg cuff BP Systolic Standing 160 mmHg Lue reg cuff BP Diastolic Standing 72 mmHg Lue reg cuff BMI (Body Mass Index) 34.8 kg/m2 Ejection Fraction 60-65% Echo 01/10/19 10/20/2018 9:39am Height 62 inches 5'2" Weight 192.12 lb Clothes/shoes Heart Rate 60 /min Radial BP Systolic Sitting 178 mmHg Lue reg cuff BP Diastolic Sitting 60 mmHg Lue reg cuff BP Systolic Standing 168 mmHg Lue reg cuff BP Diastolic Standing 60 mmHg Lue reg cuff BMI (Body Mass Index) 35.1 kg/m2 Ejection Fraction 55-60% Echo 02/19/2017 Results Description No Information Available Procedures Date Code Description Status 02/13/2019 26452 EKG Tracing & Interpretation Completed 01/10/2019 44645 ECHO Transthoracic, Real-Time 2D With Doppler And Color Completed Flow 01/10/2019 40045 ECHO Transthoracic, Real-Time 2D With Doppler And Color Completed Flow 10/20/2018 49235 EKG Tracing & Interpretation Completed Medical Devices Description No Information Available Encounters Type Date Location Provider Dx Diagnosis Office Visit 10/20/2018 [facility] Sami Berumen I42.9 Cardiomyopathy , 10:00a Sandra Kaur unspecified I10 Essential (primary) hypertension E66.9 Obesity, unspecified E78.00 Pure hypercholesterolemia, unspecified R60.9 Edema, unspecified I34.0 Nonrheumatic mitral (valve) insufficiency Office Visit 10/06/2018 3:00p [facility] Italo Mancilla, I87.2 Venous MD insufficiency (chronic) (peripheral) Assessments Date Code Description Provider 02/13/2019 Z01.810 Encounter for preprocedural Rosemarie Sanchez, N.P. cardiovascular examination 02/13/2019 I42.9 Cardiomyopathy, unspecified Rosemarie Sanchez, N.P. 02/13/2019 I10 Essential (primary) hypertension Rosemarie Sanchez, N.P. 02/13/2019 E78.00 Pure hypercholesterolemia, unspecified Rosemarie Sanchez, N.P. 02/13/2019 E66.9 Obesity, unspecified Rosemarie SLance Sanchez, N.P. 02/13/2019 I34.0 Mitral valve disorder Rosemarie Sanchez, N.P. 01/10/2019 I42.9 Cardiomyopathy, unspecified Sami Kaur M.D. 01/10/2019 I42.9 Cardiomyopathy, unspecified [place] [facility] Schedule 10/20/2018 I42.9 Cardiomyopathy, unspecified Sami Kaur M.D. 10/20/2018 I10 Essential (primary) hypertension Sami Kaur M.D. 10/20/2018 E66.9 Obesity, unspecified Sami Kaur M.D. 10/20/2018 E78.00 Pure hypercholesterolemia, oscarified Sami Kaur M.D. 10/20/2018 R60.9 Edema, oscarified Sami Kaur M.D. 10/20/2018 I34.0 Mitral valve disorder Sami Kaur M.D. 10/06/2018 I87.2 Venous insufficiency (chronic) Itaol Mancilla MD (peripheral) Plan of Treatment 02/13/2019 - Rosemarie Sanchez, N.P.Z01.810 Encounter for preprocedural cardiovascular examinationRecommendations:ok for aogfaqtB37.9 Cardiomyopathy, ydwdqkkukcqS10 Essential (primary) zagezfcnsosiE54.00 Pure hypercholesterolemia , unspecifiedFollow up:OV [facility] 10/20195325C40.9 Obesity, neovhqyzpprQ92.0 Mitral valve disorder Functional Status Description No Information Available Mental Status Description No Information Available Referrals Description No Information Available
--- OUTSIDE RECORDS SUMMARY | 2019-03-06 11:23 | XMS REPORT | Summary of Care ---
:1935 Author Organization [facility] Address 1 [facility] [place] [address] Care Team Providers Name Role Phone Major Lund MD Primary Care Provider Sami Kaur MD Unavailable Ijeoma Burnham OD Unavailable Rob Jimenez DMD Unavailable Reason for Referral Refer to Department Only (Routine) Status Reason Specialty Diagnoses / Referred By Referred To Procedures Contact Contact Authorized CARDIOLOGY / Diagnoses Preop exam for internal medicine Elida Evans [facility] Cardiology Cardiology [address] [place] [address] [place], [place] Phone: [phone] Phone: Reason for Visit Reason Comments Pre-op Exam Encounter Details Date Type Department Care Team Description 02/09/2019 Office Visit Elida Larios, Preop exam for internal medicine (Primary Dx); Medicine MD Primary osteoarthritis of right hip; 1 [facility] [address] [facility] Essential hypertension; [place] [id number] [place] [address] Dilated cardiomyopathy (HCC); [phone] Gastroesophageal reflux disease, esophagitis presence not specified; [phone] Hearing loss, unspecified hearing loss type, unspecified laterality; (Fax) ANAHI on CPAP Allergies Active Allergy Reactions Severity Noted Date Comments Milk GI Reaction 02/25/2012 CAN TOLERATE CHEESE AND ICE CREAM documented as of this encounter (statuses as of 02/10/2019) Medications Medication Sig Dispensed Refills Start Date [...] 0 Active Oral Cap mouth TWICE DAILY. [place]-3 Fatty Acids Take 1 Cap by 0 Active (FISH OIL) 1000 MG Oral mouth EVERY Cap MORNING. Iron 66 MG Oral Tab Take 65 mg by 0 Active mouth DAILY. Uiefhyz-Thnevfujk-Scdbm Take 1 Tab by 0 Active in [...] takes QHS, Reported on 02/09/2019 9:18 AM Acetaminophen-Pamabrom 500-25 MG Take by mouth. 0 02/09/2019 Discontinued Oral TabIndications: not taking Indications: not taking documented as of this encounter (statuses as of 02/10/2019) Active Problems Problem Noted Date Chronic pain [...] as of this encounter (statuses as of 02/10/2019) Resolved Problems Problem Noted Date Resolved Date [...] as of this encounter (statuses as of 02/10/2019) Immunizations Name Administration Dates Next Due Celestone [...] on filedocumented in this encounter Progress Notes Elida Evans MD - 02/09/2019 9:00 AM EDT PATIENT: Mireille Seth : 1935 DATE OF SERVICE: 02/09/[address] Nicole Reason for consult Preoperative medical evaluation prior to proceeding with right hip surgery Date of surgery 02/20/2019 Planned Anaesthesia Primary care provider Major Lund Mireille Seth is a 84-y.o. female is coming in for preop medical evaluation prior to proceeding with right hip replacement. She has been having problems with right hip for several years. There is pain in right hip and there is no radiation .The pain interferes with activity. has a resting pain of3The pain gets up to 7 on a pain scale of 0 - 10. Movement aggravates it. She has been taking tylenol with some help. She has been diagnosed as having DJD and was evaluated by Dr Nicole and was recommended to have right hihp replacement for relief of symptoms. Main medical problems are DJD hip MD ,diet controlled , las glycohemoglobin is 6.4- Done today Dilated cardiomyopathy due to flu ,seen cardiology at [facility] hypeedynamic based on TTE 2014 , last TTE 02/2017-showed ejection fraction of 55% , no regional wall motion abnormalities,see scanning ANAHI ,uses CPAP POARCH has hearing aids Uterine cancer > 11 years ago Jehovas witness She is physically active and does preop PT ,stationary bike for exercise. Patient has informed about the surgery to the PCP Major Lund and there was no special concerns raised by the PCP for the upcoming surgery per patient. Exercise capacity: Can you walk 2 blocks on level ground, or carry 2 bags of groceries up 2 flights of stairs? No Count the number of risk factors in the revised Sutton cardiac risk index. ( RCRI): High risk procedure: eg vascular surgery, any open intraperitoneal or intrathoracic n History of ischemic heart disease (history of [place] or a positive exercise test , current complaint of chest pain considered to be secondary to myocardial ischemia, use of nitrate therapy, or ECG with pathological Q waves; do not count prior coronary revascularization procedure unless one of the other criteria for ischemic heart disease is present) y Hx of CHF, either systolic or diastolic n History of cerebrovascular disease (TIA or Stroke) n Diabetes mellitus requiring treatment with insulin n Preoperative serum creatinine >2.0 mg/dl The risk of cardiac , nonfatal myocardial infarction, and nonfatal cardiac arrest according to the number of above risk predictors is estimated to be: One risk factor - 1.0 percent (95% CI: 0.5 - 1.4) Screening for sleep apnea: Has ANAHI , uses CPAP no recent significant hospitalization other than for surgeries. ROS Cardiovascular :Denies chest pains, palpitations, has SOB on exertion-stable , no orthopnea, PND. Nodizziness, no presyncope or syncope. Respiratory : Denies cough or phlegm or wheezing. HEENT : No frequent or significant headaches. No sinus drainage or pains. no runny nose. no earachesor drainage. Hearing is -POARCH ,has hearing aids, Vision stable DENTAL : denies toothaches. Gastrointestinal :No nausea or vomiting. no heart burn, no dysphagia. no abdominal pain, no diarrheaor constipation. stool is normal, no blood in the stools or dark stools. Genitourinary : No dysuria or hematuria.notes normal urine.normal stream and strength. normal emptying.no urinary incontinence. Neurological :No changes or problems with mentation, speech, motor strength, gait and balance. no numbness or tingling or burning. Skin : denies any suspicious lesions, no rashes, No lumps. Musculoskeletal: no back or neck pain. No other joint pains/ swelling or stiffness. No muscle weakness or pains. Hematological/ Immunological:no lymphgland enlargement. no frequent or significant bruising or bleeding Endocrine : no heat or cold intolerance, no tremor, no polyuria or polydipsia. Constitutional : No fever, no chills. no falls. No night sweats. no fatigue or lethargy.appetite hasbeen ok, weight is stable Psychiatric : Mood is ok sleep fair no previous significant injuries. no prior anaesthesia problems, no bleeding problems with prior surgery.no prior history of DVT or Pulmonary embolism. Past Medical History: Diagnosis Date Barretts esophagus 2013 . 2016 stable fu 2 years 2019 Barretts no dysplasia -3 years . . BMI 32.0-32.9,adult Cardiomyopathy dilated initially due to flu Carotid bruit 2010 ,50% Colon polyp 2006 colonoscopy 2011 Tics only 5 years. 2016 adenoma recommend 5 years Congestive Heart Failure 1990 due to flu CTS (carpal tunnel syndrome) 2011 Diverticulosis Endometrial ca (HCC) FAMILY HISTORY OF BREAST CANCER 02/20/2008 Fibula fracture Gastric nodule 2013 bx negative GERD (gastroesophageal reflux disease) Hearing loss aids HYPERGLYCEMIA 02/20/2008 Hyperlipidemia not want meds Hypertension Macular degeneration Nulliparity OA (osteoarthritis) of knee Obesity Osteopenia 2014 frax17 major and 3.2 hip if include fibula .fx if not then 11 and 2.3 Postmenopausal Pulmonary nodule negative CT Refusal of statin medication by patient Sleep apnea cpap 13cm Statin intolerance Thrombocytopenia (HCC) Past Surgical History: Procedure Laterality Date CARDIAC STRESS TEST NEC 04/17 inferior hypokinesis CHOLECYSTECTOMY COLONOSCOPY 2005 5 years COLONOSCOPY N/A 05/18/2016 Procedure: Upper endoscopy with cold biopsy and colonoscopy with hot biopsy ; Surgeon: Baldemar Shea Jr., MD; Location: [facility] MAIN OR DOBUTAMINE STRESS ECHO 2012 normal ECHOCARDIOGRAM 2009 EF improved, 50% violetta dysfxn mild LAE ECHOCARDIOGRAM 2010 EF improved 55% otherwise similar ECHOCARDIOGRAM 2012 50-55% VIOLETTA DYSFXN, SIMILAR TO 2010 EGD N/A 10/26/2018 Procedure: ENDOSCOPY UPPER GI; Surgeon: Baldemar Shea MD; Location: [facility] MAIN OR VT EGD INJECTION SCLEROSIS ESOPHGL/GASTRIC VARICES VT ORBIT SURGERY PROC UNLISTED Bilateral cataracts RELEASE CARPAL TUNNEL 03/02/2012 Procedure: RELEASE CARPAL TUNNEL; Surgeon: Angelito Nicole MD; Location: [facility] MAIN OR; Laterality: Right; STRESS ECHO 2012 non diagnostic, not reach target HR but was otherwise normal TOTAL ABD HYSTERECTOMY cancer TOTAL KNEE REPLACEMENT right TOTAL KNEE REPLACEMENT 05/2011 LEFT KNEE IN [place] Allergies Allergen Reactions Milk GI Reaction CAN TOLERATE CHEESE AND ICE CREAM Current Outpatient Medications Medication Sig Acetaminophen-Pamabrom 500-25 MG Oral Tab Take by mouth. Indications: not taking ASPIRIN 81 MG Oral Tab Take 1 Tab by mouth EVERY EVENING. Xyrqloi-Mqotjtohp-Hbpbxen D (CALCIUM 1200+D3 PO) Take 1 Tab [...] (ICAPS) Oral Cap Take by mouth DAILY. Olopatadine HCl (PATADAY) 0.2 % Ophthalmic Solution Place to the external eye DAILY. [place]-3 Fatty Acids (FISH OIL) 1000 MG Oral [...] No current facility-administered medications for this visit. Social History Tobacco Use Smoking status: Former Smoker Packs/day: 1.50 Years: 27.00 Pack years: 40.50 Types: Cigarettes Last attempt to quit: 10/05/1974 Years since quittin.3 Smokeless tobacco: Never Used Tobacco comment: 20+ yrs of a 1 1/2 packs daily Substance Use Topics Alcohol use: No Comment: 1 glass of wine occasionally Drug use: No Family history no family history of anaesthesia problems, no bleeding problems , no history of clots. PHYSICAL EXAM Constitutional - alert, oriented to time, place and person, communicating appropriately. appears stated age, and in no distress. Vitals 02/09/2019 Weight 195 lb Height 62.75 BMI (Calculated) 34.82 BP 149/66 BP Act. BP Loc Temp 98.3 Pulse 64 Resp 18 SpO2 97 O2 delivery device: O2 (LPM): Pain Score Eye exam - pupils equal and reactive, extraocular eye movements intact. conjunctiva/ lids are normal. Ears/ Nose/ Throat- bilateral ears are normal, oral mucosa moist and pink, oropharynx normal without any lesions or exudates. Neck exam - supple, no cervical adenopathy. Cardiovascular - no carotid bruits. no significant JVD, Heart sounds S1 S2 are normal, regular heartrhythm, no rubs/ gallops. no murmur present. Respiratory- Respiratory effort is normal, Symmetric air entry present bilaterally. Clear to auscultation, no wheezes, rales or rhonchi. Gastrointestinal- abdomen is soft, non tender, no hepato splenomegaly, no masses. normal bowel sounds present. Back- no spinal tenderness, No CVA tenderness. Upper Extremities x2 - no clubbing or cyanosis.no nail changes. Lower Extremities x2 - Bilateral DP pulses normal, Posterior tibialis pulses normal, no edema in the ankle/ legs . Skin - normal turgor and colour, no rashes. Neurological - alert, oriented, normal speech, no weakness or movement disorder noted. Hematological/ Lymphatic/ ImmunologicaI- No cervical adenopathy, no abnormal bruising or petechia, no pallor. Psychiatric - mood is normal LABS preadmission labs reviewed cbc, cmp within normal limits except glycohemoglobin 6.4, creatinine 1.1,EGFR 48 EKG normal sinus rhythm. Signs of anterior infarct, age undetermined Chest xray reviewed no significant abnormalities noted. official report Findings: There is no confluent pulmonary parenchymal opacity seen. Cardioaortic silhouette appears unremarkable. There is normal pulmonary vascularity. The gordon are normal. No pleural effusion is seen. No pneumothorax is seen. Trachea midline. Mild endplate remodeling is seen of thoracic spine. No acute bony abnormality is seen. IMPRESSION 1. No acute cardiopulmonary disease is seen. Assessment Mireille Seth is a 84-y.o. female is here for preop medical assessment prior to proceeding with the right hip replacement ICD-9-CM ICD-10-CM 1. Preop exam for internal medicine V72.83 Z01.818 REFER TO CARDIOLOGY (GENERAL) Taking into consideration type of surgery and patient`s risk factors - risk of major cardiovascular adverse events is 1% perioperatively patient is [facility] and will not accept any blood or [...] obtain cardiology evaluation-patient will see her own manager concrete at [facility] prior to elective orthopedic surgery 5. Gastroesophageal [...] Incentive spirometry recommended to reduce pulmonary complications. Thankyou for involving me in the care of this patient. It is always a pleasure to do the preop medical evaluation for your patients. please donot hesitate to contact me if there are any questions. Please call me with concerns during patients perioperative period. electronically signed Elida Evans MD 02/09/2019 10:26Electronically signed by Elida Evans MD at 11/2018 11:24 AM EDTdocumented in this encounter Plan of Treatment Date Type Specialty Care Team Description 02/20/2019 Hospital Encounter Anesthesiology Angelito Nicole, Inpatient MD 1 [place] [address] 02/20/2019 Anesthesia Event Demetris Rueda MD 1 [place] [address] 02/20/2019 Surgery Angelito Nicole, ARTHROPLASTY TOTAL HIP CONTINUM TAPER LOC 1 KG SINGH RIGHT [place] [address] 03/16/2019 Office Visit Orthopedics Angelito Nicole MD 1 [place] [address] 04/06/2019 Office Visit Orthopedics Angelito Nicole MD 1 [place] [address] 04/10/2019 Office Visit Family Practice Major Lund MD [address] [place] [address] [phone] Name Type Priority Associated Diagnoses Order Schedule REFER TO CARDIOLOGY Referral Routine Preop exam for internal Expected: 10/2018, (GENERAL) medicine Expires: 02/10/2020 Health Maintenance Due Date Last Done Comments [...] Educational Resources: National Heart, Lung, & Blood [place] http://nhlbi.nih.gov/hbp/index.html The DASH Diet Eating Plan http://www.nhlbi.nih.gov/health/health-topics/ topics/dash/ Academy of Nutrition & DIetetics http://eatright.org National Smoking Cessation Site http://smokefree.gov Blood Pressure < Blood Pressure Essential 149/66 (02/09/2019 Major Cooper, 140/90 hypertension 8:58 AM EDT) Note: Hypertension [...] Educational Resources: National Heart, Lung, & Blood [place] http://nhlbi.nih.gov/hbp/index.html The DASH Diet Eating Plan http://www.nhlbi.nih.gov/health/health-topics/ [...] treatment (diabetes control, HgbA1C) goal for Mireille J Dorinda: Displayed above is your progress towards your [...] is an individualized self-management goal for Mireille Milian Dorinda: Please take all prescribed medications as directed. [...] in this encounter Visit Diagnoses Diagnosis Preop exam for internal medicine - Primary Other specified pre-operative examination Primary osteoarthritis of right hip Primary localized osteoarthrosis, pelvic region and thigh Essential hypertension Unspecified essential hypertension Dilated cardiomyopathy (HCC) Other primary cardiomyopathies Gastroesophageal reflux disease, esophagitis presence not specified Hearing loss, unspecified hearing loss type, unspecified laterality ANAHI on CPAP Obstructive sleep apnea (adult) (pediatric) documented in this encounter Insurance Payer Benefit Plan / Subscriber ID Effective Dates Phone Address Type Group AETNA MEDICARE AETNA MEDICARE xxxxxxxx 2017-Present [employer] ADV[employer]AGE ADVANTAGE Guarantor Name Account Type Relation to Date of Phone Billing Patient Address Mireille Seth Personal/Family 1935 [address] [phone] [place], [place] (Work) [id number] documented as of this encounter Advance Directives Type Date Recorded 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
--- OUTSIDE RECORDS SUMMARY | 2019-03-06 11:24 | XMS REPORT | Summary of Care ---
:1935 Author Organization [facility] Address [address] [place] [address] [address] Care Team Providers Name Role Phone Major Lund MD Primary Care Provider Sami Kaur MD Unavailable Ijeoma Burnham OD Unavailable Rbo Jimenez DMD Unavailable Encounter Details Date Type Department Care Team Description 02/09/2019 Hospital Encounter [facility] Preadmission Services Outpatient 1 [place] [address] Allergies Active Allergy Reactions Severity Noted Date [...] 0 Active Oral Cap mouth TWICE DAILY. [place]-3 Fatty Acids Take 1 Cap by 0 Active (FISH OIL) 1000 MG Oral mouth EVERY Cap MORNING. Iron 66 MG Oral Tab Take 65 mg by 0 Active mouth DAILY. Pvetjst-Rvewnyrmf-Toope Take 1 Tab by 0 Active in [...] takes QHS, Reported on 02/09/2019 9:18 AM documented as of this encounter (statuses as [...] MD CONTINUM TAPER LOC 1 [place] [place] [id number] 03/16/2019 Office Visit Orthopedics Angelito Nicole MD 1 [place] [address] 04/06/2019 Office Visit Orthopedics Angelito Nicole MD 1 [place] [address] 04/10/2019 Office Visit Family Practice Major Lund MD [address] [place] [address] [phone] Health Maintenance Due Date Last Done Comments [...] Educational Resources. record my blood pressure results. [employer] is safe and secure way for you [...] Educational Resources: National Heart, Lung, & Blood [place] http://nhlbi.nih.gov/hbp/index.html The DASH Diet Eating Plan http://www.nhlbi.nih.gov/health/health-topics/ [...] Educational Resources: National Heart, Lung, & Blood [place] http://nhlbi.nih.gov/hbp/index.html The DASH Diet Eating Plan http://www.nhlbi.nih.gov/health/health-topics/ [...] Results Not on filedocumented in this encounter Insurance Payer Benefit Plan / Subscriber ID Effective Dates Phone Address Type Group AETNA MEDICARE AETNA MEDICARE xxxxxxxx 2017-Present [employer] ADV[employer] ADVANTAGE (Home) STREET [phone] [place], [place] (Work) [phone] documented as of this encounter Advance Directives Type Date Recorded Patient Rose Grader Explanation Advance Directives 08/18/2013 7:49 AM Advance Directives 03/12/2016 10:46 AM Health Care Proxy
[2019-03-06] MEDS ORDERED: traMADol TAB* 50 MG PO ONE (13:41)
[2019-03-06 15:39] LABS: ABS Basophils 0.1 10^3/ul (0-0.2); ABS Eosinophils 0.1 10^3/ul (0-0.6); ABS Lymphocytes 1.6 10^3/ul (1.0-4.8); ABS Monocytes 0.6 10^3/ul (0-0.8); ABS Neutrophils 8.3 10^3/ul (1.5-7.7); Eosinophil % 1.2 %; Hematocrit 36 % (35-47); Hemoglobin 12.2 g/dL (12.0-16.0); Mean Corpuscular HGB Conc 34 g/dL (31-36); Mean Corpuscular Hemoglobin 32 pg (27-31); Mean Corpuscular Volume 94 fL (80-97); Mean Platelet Volume 9.2 fL (7.4-10.4); Nucleated Red Blood Cells % 0.1; Platelet Count 296 10^3/uL (150-450); Red Blood Count 3.81 10^6 /uL (3.70-4.87); Red Cell Distribution Width 13 % (10-15); White Blood Count 10.6 10^3/uL (3.5-10.8)
[2019-03-06 15:43] LABS: INR 1.04 (0.82-1.09)
[2019-03-06 15:59] LABS: Troponin I 0.02 ng/mL (<0.04)
[2019-03-06 16:10] LABS: Albumin 3.6 g/dL (3.2-5.2); Albumin/Globulin Ratio 1.2 (1-3); BUN/Creatinine Ratio 16.5 (8-20); C Reactive Protein 14.37 mg/L (<8.01); Calcium 9.2 mg/dL (8.6-10.3); EGFR African American 58.1 (>60); EGFR Non-African American 48.1 (>60); Globulin 2.9 g/dL (2-4); Potassium 3.8 mmol/L (3.5-5.0); Total Bilirubin 0.4 mg/dL (0.2-1.0); Total Protein 6.5 g/dL (6.4-8.9)
[2019-03-06] MEDS ORDERED: Morphine 4 MG/ML VIAL (1 ml) 4 MG/ML VIAL IV ONE (19:27)
[2019-03-06 19:38] VITALS: BP 178/66
== END 2019-03-06 19:37 | disposition short-term general hospital (02) ==
LOC: ED 10:14
DX: S72.301A Unspecified fracture of shaft of right femur, initial encounter for closed fracture (principal); M97.01XA Periprosthetic fracture around internal prosthetic right hip joint, initial encounter; X50.1XXA Overexertion from prolonged static or awkward postures, initial encounter; Y93.89 Activity, other specified; Y92.9 Unspecified place or not applicable; M85.851 Other specified disorders of bone density and structure, right thigh; M16.11 Unilateral primary osteoarthritis, right hip; Z96.641 Presence of right artificial hip joint; Z96.651 Presence of right artificial knee joint; Z79.82 Long term (current) use of aspirin; I10 Essential (primary) hypertension; Z87.891 Personal history of nicotine dependence
CPT/HCPCS: 36415; 80053; 84484; 85025; 85610; 86140; 96374; 99285; A9270-GY; J2270

== ENCOUNTER 2019-04-22 13:14 | Inpatient (IN) | payer MEDICARE ==
--- NOTE | 2019-04-22 13:26 | ED ---
Neurological HPI - HPI Summary HPI Summary: This patient is an 84 year old F presenting to [facility] by EMS with a chief complaint of dizziness since prior to arrival. Pt was standing up fixing her lunch and she started to feel dizzy. Pt reports seeing many colors. Pt felt like she was going to fall. Pt did not lose consciousness. Pt has a PMHx of CHF. Patient reports SOB, tightness in chest, abdominal pain. Patient denies nausea, vomiting, palpitations, weakness, black stool. She does not remember when her last colonoscopy was. She is not taking aspirin. Pt takes Vicodin. Pt has felt fine the past few days until today. - History of Current Complaint Chief Complaint: EDDizziness Stated Complaint: SOB PER EMS Time Seen by Provider: 04/22/19 13:16 Hx Obtained From: Patient Onset/Duration: Sudden Onset, Still Present Timing: Constant Pain Intensity: 0 Pain Scale Used: 0-10 Numeric Character: Room Spinning, Lightheaded, Dizzy, Visual Changes Aggravating: Nothing Alleviating: Nothing Associated Signs and Symptoms: Positive: Visual Changes, Dizziness, Shortness of Breath. Negative: Loss of Consciousness, Nausea/Vomiting, Palpitations - Allergy/Home Medications Allergies/Adverse Reactions: Allergies Allergy/AdvReac Type Severity Reaction Status Date / Time No Known Allergies Allergy Verified 04/22/19 13:20 PMH/Surg Hx/FS Hx/Imm Hx Endocrine/Hematology History: Denies: Hx Diabetes, Hx Thyroid Disease Cardiovascular History: Reports: Hx Hypertension Respiratory History: Denies: Hx Asthma, Hx Chronic Obstructive Pulmonary Disease (COPD) GI History: Denies: Hx Ulcer - Cancer History Cancer Type, Location and Year: Uterine cancer - Surgical History Surgery Procedure, Year, and Place: Hysterectomy, bilateral knee replacement, gallbladder Infectious Disease History: No Infectious Disease History: Denies: Hx Hepatitis, Hx Human Immunodeficiency Virus (HIV), History Other Infectious Disease, Traveled Outside the [place] in Last 30 Days - Family History Known Family History: Negative: Hypertension, Diabetes - Social History Alcohol Use: Rare Hx Substance Use: No Substance Use Type: Reports: None Smoking Status (MU): Former Smoker Type: Cigarettes Review of Systems Positive: Other - Vision changes Positive: Other - Chest tightness. Negative: Palpitations Positive: Shortness Of Breath Positive: Abdominal Pain. Negative: Vomiting, Nausea, Other - black stool Neurological: Other - Dizziness Positive: Syncope. Negative: Weakness All Other Systems Reviewed And Are Negative: Yes Physical Exam - Summary Physical Exam Summary: NEURO EXAM VITAL SIGNS: Reviewed. GENERAL: Patient is an elderly female who is lying comfortable in the stretcher. Patient is not in any acute respiratory distress. Pt looks pale, and is hypotensive. HEAD AND FACE: No signs of trauma. No ecchymosis, hematomas or skull depressions. No sinus tenderness. EYES: PERRLA, EOMI x 2, No injected conjunctiva, no nystagmus. No photophobia. EARS: Hearing grossly intact. Ear canals and tympanic membranes are within normal limits. MOUTH: Oropharynx within normal limits. NECK: Supple, trachea is midline, no adenopathy, no JVD, no carotid bruit, no c- spine tenderness, neck with full ROM. No meningeal signs, no Kernig's or brudzinskis signs. CHEST: Symmetric, no tenderness at palpation. LUNGS: Clear to auscultation bilaterally. No wheezing or crackles. CVS: Regular rate and rhythm, S1 and S2 present, no murmurs or gallops appreciated. ABDOMEN: Soft, non-tender. No signs of distention. No rebound, no guarding, and no masses palpated. Bowel sounds are normal. EXTREMITIES: FROM in all major joints, no edema, no cyanosis or clubbing. NEURO: Alert and oriented x 3. No acute neurological deficits. Speech is normal and follows commands. SKIN: Dry and warm. GCS: 15 Triage Information Reviewed: Yes Vital Signs On Initial Exam: Initial Vitals Temp Pulse Resp BP Pulse Ox 97 F 92 18 81/42 93 04/22/19 13:16 04/22/19 13:16 04/22/19 13:16 04/22/19 13:16 04/22/19 13:16 Vital Signs Reviewed: Yes - [place] Coma Scale Best Eye Response: 4 - Spontaneous Best Motor Response: 6 - Obeys Commands Best Verbal Response: 5 - Oriented Coma Scale Total: 15 Procedures - Sedation Patient Received Moderate/Deep Sedation with Procedure: No Diagnostics - Vital Signs Vital Signs Temp Pulse Resp BP Pulse Ox 04/22/19 13:16 97 F 92 18 81/42 93 - Laboratory Result Diagrams: 04/22/19 13:43 04/22/19 13:43 Lab Statement: Any lab studies that have been ordered have been reviewed, and results considered in the medical decision making process. - Radiology CXR Radiology Interpretation Completed By: Radiologist Summary of Radiographic Findings: CXR reveals, per radiologist, IMPRESSION: Interval appearance of a 1.8 cm density overlying the right lower lobe, not seen on the October 24, 2012 chest x-ray. Superior characterization can be made with CT of the chest, particularly the patient is exhibiting pulmonary symptoms. ED physician has reviewed this radiology report. - CT Brain CT CT Interpretation Completed By: Radiologist Summary of CT Findings: Brain CT reveals, per radiologist, IMPRESSION: Normal CT of the brain. ED physician has reviewed this radiology report. Chest CT CT Interpretation Completed By: Radiologist Summary of CT Findings: Chest CT reveals, per radiologist, IMPRESSION: There are multifocal patchy densities in the right lower lobe, the largest measuring 1.8 x 2.5 cm in the axial plane likely corresponding to the nodule seen on the same day chest x-ray. The differential diagnosis includes infection, inflammatory change and/or neoplasm. Follow-up imaging after an appropriate course of therapy is recommended to ascertain resolution unless the patient has clinical features suspicious of malignancy. ED physician has reviewed this radiology report. - EKG 1337 Cardiac Rate: NL EKG Rhythm: Sinus Rhythm - An EKG at 13:37 reveals normal sinus rhythm 94, Q- wave in lead III, and ST-depressions V4, V5, V6. ED physician has interpreted this EKG Course/Dx - Course Assessment/Plan: This patient is an 84-year-old female who presents to the emergency department with a chief complaint of having dizziness, and chest tightness. EMS reports that her blood pressure initially was 80/40 and they started her on IV fluids. Blood test results shows a wbcs of 10.9, hemoglobin 9.8, hematocrit 30, platelet count 221. And chemistry without any significant abnormality except for sodium 134, chloride is 100, anion gap is 12, creatinine is 1.49, glucose 340, lactic acid is 5.2, magnesium 1.6, CRP 95.6 and BNP 244. Urinalysis shows 1+ protein, 3+ blood, 1+ leukocytes, 1+ WBCs, and 2+ RBCs. There is also squamous epithelial cells. Therefore I believe that the patient has a contamination. However, since lactic acid is significantly elevated and the patient is very hypertensive. The pt was given antibiotics and the infection was covered with Rocephin. The patient also was given IV fluids for the hypotension. Head CT impression: Normal CT of the pain. Chest x-ray impression: Interval appearance of a 1.8 cm density in the right lower lobe, not seen on November 01, 2012 chest x-ray. Chest CT impression: There are multifocal patchy densities in the right lower lobe, the largest measuring about 1.82.5 cm in the axial plane likely corresponding to the nodule seen on the same day chest x-ray. Differential diagnosis includes infection, inflammatory change, and or neoplasm. At this time I discussed my physical exam and findings with Dr. Goldman from the hospital services who accepted the patient for admission. Dr. Goldman recommended that she CTA to rule out PE. She will follow-up with the CTA results and will restart appropriate management and if is positive for a PE. - Diagnoses Provider Diagnoses: Hypotension, Dizziness, UTI (urinary tract infection), Pneumonia, Pulmonary nodule - Physician Notifications Discussed Care Of Patient With: Kalyan Goldman Time Discussed With Above Provider: 15:27 Instructed by Provider To: Other - Discussed case with Dr. Goldman, who accepts pt for admission. Discharge ED - Sign-Out/Discharge Documenting (check all that apply): Patient Departure - Admit - Discharge Plan Condition: Stable Disposition: ADMITTED TO [facility] - Billing Disposition and Condition Condition: STABLE Disposition: Admitted to [facility] - Attestation Statements Document Initiated by Dwayne: Yes Documenting Scribe: Alina Lai Provider For Whom Dwayne is Documenting (Include Credential): Benito Li MD Scribe Attestation: Alina Baez scribed for Benito Li MD on 04/22/19 at 1837. Scribe Documentation Reviewed: Yes Provider Attestation: The documentation as recorded by the Alina shah accurately reflects the service I personally performed and the decisions made by me, Benito Li MD Status of Scribe Document: Viewed
[2019-04-22 13:50] LABS: ABS Basophils 0.1 10^3/ul (0-0.2); ABS Eosinophils 0.2 10^3/ul (0-0.6); ABS Lymphocytes 1.8 10^3/ul (1.0-4.8); ABS Monocytes 0.7 10^3/ul (0-0.8); ABS Neutrophils 8.2 10^3/ul (1.5-7.7); Eosinophil % 1.6 %; Hematocrit 30 % (35-47); Hemoglobin 9.8 g/dL (12.0-16.0); Lymphocyte % 16.4 %; Mean Corpuscular HGB Conc 33 g/dL (31-36); Mean Corpuscular Hemoglobin 30 pg (27-31); Mean Corpuscular Volume 93 fL (80-97); Mean Platelet Volume 10.5 fL (7.4-10.4); Platelet Count 221 10^3/uL (150-450); Red Blood Count 3.23 10^6 /uL (3.70-4.87); Red Cell Distribution Width 14 % (10-15); White Blood Count 10.9 10^3/uL (3.5-10.8)
[2019-04-22 14:07] LABS: Albumin 3.2 g/dL (3.2-5.2); BUN/Creatinine Ratio 12.8 (8-20); C Reactive Protein 95.67 mg/L (<8.01); EGFR African American 40.5 (>60); EGFR Non-African American 33.5 (>60); Globulin 3.1 g/dL (2-4); Magnesium 1.6 mg/dL (1.9-2.7); Potassium 4.6 mmol/L (3.5-5.0); Total Bilirubin 0.4 mg/dL (0.2-1.0); Total Protein 6.3 g/dL (6.4-8.9)
[2019-04-22 14:08] LABS: Troponin I 0.03 ng/mL (<0.04)
[2019-04-22 14:41] LABS: TSH (Thyroid Stimulating Horm) 1.45 mcIU/mL (0.34-5.60)
[2019-04-22 14:56] LABS: Urine Color Yellow
[2019-04-22 14:57] LABS: Urine Appearance Cloudy
[2019-04-22 14:58] LABS: Urine Blood 3+ (Negative); Urine Ketones Negative (Negative); Urine Nitrite Negative (Negative); Urine Protein 1+(30 mg/dL) (Negative); Urine Specific Gravity 1.015 (1.010-1.030); Urine Urobilinogen Negative (Negative)
[2019-04-22 14:59] LABS: Urine Bacteria 1+ (Absent); Urine Bilirubin Negative (Negative); Urine Glucose Negative (Negative); Urine Red Blood Cell 2+(6-10/hpf) (Absent); Urine Squamous Epithelial Cell Present (Absent); Urine White Blood Cell 1+(6-10/hpf) (Absent)
--- OUTSIDE RECORDS SUMMARY | 2019-04-22 15:06 | XMS REPORT | Continuity of Care Document ---
:1935 External Reference #:[id number] Author Name Rosemarie Sanchez N.P. 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 - leg problems prohibiting recently Allergies, Adverse Reactions, Alerts Active Allergies Reaction Severity Comments Date Amlodipine Lower leg edema 10/20/2018 Lipitor myalgias 10/20/2018 Inactive Allergies NKDA 02/10/2005 Medications Active Medications SIG Qnty Indications Ordering Date Provider Valsartan-Hydrochloro 1 tab by mouth 90tabs Sami Berumen 10/20/2018 thiazide every day Sandra Kaur 160-12.5mg Tablets Compression Stockings wear on both legs 2units R60.9 Rosemarie Sanchez, 11/02 daily and remove at N.P. Misc night Protonix 1 tab by mouth Unknown 09/29/2016 40mg Tablets twice daily Red Yeast Rice 2 capsules by mouth Sami Berumen 09/10/2016 600mg daily Sandra Kaur Tablets Coreg 1 by mouth twice a 180tabs Sami Berumen 09/17/2015 12.5mg Tablets day Sandra Kaur [facility] Sami Berumen 10/17/2007 Sandra Kaur Cod Liver Oil 1 tablet by mouth Sami Berumen 02/10/2005 Tablets daily Sandra Kaur Acetaminophen Extra Take 2 tabs by Unknown Strength mouth every 8 hrs 500mg Tablets as needed for pain Ferrous Gluconate 1 tab by mouth Unknown daily 324(38Fe) mg Tablets Senna Plus 2 tabs daily as Unknown 8.6-50mg needed constipation Tablets Acidophilus Probiotic 1 tab by mouth Unknown Complex daily Tablets Calcium 500 +D 1 by mouth daily Unknown [id number] Tablets Sucralfate 1 tab by mouth 4x Unknown 1gm Tablets daily and at bedtime Tramadol HCL 1 tab by mouth q Unknown 50mg 6hrs prn pain Tablets Tussin Chest 10ml by mouth every Unknown Congestion 4 hrs prn cough 100mg/5ML Syrup Aspirin take 1 by mouth Unknown 325mg Tablets twice daily Spironolactone 1 by mouth every Unknown 25mg day Tablets B12 2 tablets by mouth Unknown 1000mcg daily Calcium 1200MG Vit D3 Take one by mouth Unknown 25mcg daily Pataday 1 drop each eye Unknown 0.2% daily Restasis one drops both eyes Unknown 0.05% Emulsion twice a day Garlic 1 po qd Unknown 1000mg Capsules [place]-3 1 po qd. 30caps Unknown 360-1200mg Capsules History Medications Icaps MV One by mouth daily Sami Kaur, 10/19/2018 - Donna Flores 03/28/2019 Immunizations Description No Information Available Vital Signs Date Vital Result Comment 03/27/2019 8:49am Height 62 inches 5'2" Weight 175.00 lb Non weight bear on Rle Heart Rate 82 /min radial,regular BP Systolic Sitting 136 mmHg Rue, reg cuff BP Diastolic Sitting 54 mmHg Rue, reg cuff BMI (Body Mass Index) 32.0 kg/m2 Ejection Fraction 60%-65% echo 01/10/19 02/13/2019 2:29pm Height 62 inches 5'2" Weight [...] 34.8 kg/m2 Ejection Fraction 60-65% Echo 01/10/19 Results Description No Information Available Procedures Date Code Description Status 04/11/2019 00839 Holter Monitor Review (24 hr)dr review & interp only Completed 04/11/2019 68704 ECG Monitor/Recording W/Visual Superimposition Scanning Completed 03/27/2019 10505 EKG Tracing & Interpretation Completed 02/13/2019 49401 EKG Tracing & Interpretation Completed 01/10/2019 38443 ECHO Transthoracic, Real-Time 2D With Doppler And Color Completed Flow 01/10/2019 37625 ECHO Transthoracic, Real-Time 2D With Doppler And Color Completed Flow 10/20/2018 19558 EKG Tracing & Interpretation Completed Medical Devices Description No Information Available Encounters Type Date Location Provider Dx Diagnosis Office Visit 03/27/2019 [facility] Viviana Sanchez, I42.9 Cardiomyopathy, 9:00a N.P. unspecified I10 Essential (primary) hypertension E78.00 Pure hypercholesterolemia, unspecified I34.0 Nonrheumatic mitral (valve) insufficiency R60.9 Edema, unspecified I49.3 Ventricular premature depolarization Office Visit 02/13/2019 [place] [place] Z01.810 Encounter for 2:30p Cardiology Marcel Sanchez preprocedural cardiovascular examination I42.9 Cardiomyopathy, unspecified I10 Essential (primary) hypertension E78.00 Pure hypercholesterolemia, unspecified E66.9 Obesity, unspecified I34.0 Nonrheumatic mitral (valve) insufficiency M25.9 Joint disorder, unspecified Office Visit 10/20/2018 [facility] Gallardo F. I42.9 Cardiomyopathy, 10:00a Viviana Kaur M.D. unspecified I10 Essential (primary) hypertension E66.9 Obesity, unspecified E78.00 Pure hypercholesterolemia, unspecified R60.9 Edema, unspecified I34.0 Nonrheumatic mitral (valve) insufficiency Assessments Date Code Description Provider 04/11/2019 I49.3 Ventricular premature depolarization Nurse Visit cc 03/27/2019 R94.31 Abnormal electrocardiogram [ECG] [EKG] Sami Kaur M.D. 03/27/2019 I42.9 Cardiomyopathy, unspecified Rosemarie S. Foster, N.P. 03/27/2019 I10 Essential (primary) hypertension Rosemarie S. Foster, N.P. 03/27/2019 E78.00 Pure hypercholesterolemia, unspecified Rosemarie S. Foster, N.P. 03/27/2019 I34.0 Mitral valve disorder Rosemarie S. Foster, N.P. 03/27/2019 R60.9 Edema, unspecified Rosemarie S. Foster, N.P. 03/27/2019 I49.3 Ventricular premature depolarization Rosemarie S. Foster, N.P. 02/13/2019 I42.9 Cardiomyopathy, unspecified Eliezer Wyman M.D. 02/13/2019 Z01.810 Encounter for preprocedural Rosemarie S. Foster, N.P. cardiovascular examination 02/13/2019 I42.9 Cardiomyopathy, unspecified Rosemarie S. Foster, N.P. 02/13/2019 I10 Essential (primary) hypertension Rosemarie S. Foster, N.P. 02/13/2019 E78.00 Pure hypercholesterolemia, unspecified Rosemarie S. Foster, N.P. 02/13/2019 E66.9 Obesity, unspecified Rosemarie S. Foster, N.P. 02/13/2019 I34.0 Mitral valve disorder Rosemarie S. Foster, N.P. 02/13/2019 M25.9 Joint disorder, unspecified Rosemarie S. Foster, N.P. 01/10/2019 I42.9 Cardiomyopathy, unspecified Sami Kaur M.D. 01/10/2019 I42.9 Cardiomyopathy, unspecified [place] ECHO Schedule 10/20/2018 I42.9 Cardiomyopathy, unspecified Sami Kaur M.D. 10/20/2018 I10 Essential (primary) hypertension Sami Kaur M.D. 10/20/2018 E66.9 Obesity, oscarified Sami Kaur M.D. 10/20/2018 E78.00 Pure hypercholesterolemia, oscarified Sami Kaur M.D. 10/20/2018 R60.9 Edema, unspecified Sami Kaur M.D. 10/20/2018 I34.0 Mitral valve disorder Sami Kaur M.D. Plan of Treatment 03/27/2019 - Rosemarie Sanchez N.P.I42.9 Cardiomyopathy, unspecifiedRecommendations:Change carvedilol to 12.5 mg tab twice [id number] Essential (primary) codjotylcmatN05.00 Pure hypercholesterolemia, nkppwkmarltQ64.0 Mitral valve mnexyejpO68.9 Edema, unspecifiedFollow up:OV 3 weeks BP/ leg swelling SaraRecommendations:STOP Furosemide START Spironolactone.I49.3 Ventricular premature depolarizationNew Orders:Holter Monitor, Scheduled: 04/11/19 Functional Status Description No Information Available Mental Status Description No Information Available Referrals Description No Information Available
--- OUTSIDE RECORDS SUMMARY | 2019-04-22 15:06 | XMS REPORT ---
:1935 Author Organization [facility] Care Team Providers Name Role Phone Unavailable Unavailable Unavailable Problems This patient has no known problems. Allergies, Adverse Reactions, Alerts Allergy Name Allergy Status Severity Reaction(s) Onset Inactive Treating Comments Type Date Date Clinician amlodipine Base Active Unknown Reaction 2018-06 Cass Beam Ingredient Unknown 06-18 Lipitor Medication Active Unknown Reaction 2018-06 Cass Beam Name ID Unknown 06-18 Medications Ordered Filled Start Stop Current Ordering Indication Dosage Frequency Signature Comments Components Medication Medication Date Date Medication? Clinician (SIG) Name Name No Known No Known No None None None Medications Medications For This For This Patient Patient Procedures This patient has no known procedures. Results This patient has no known results.
--- OUTSIDE RECORDS SUMMARY | 2019-04-22 15:06 | XMS REPORT ---
:1935 Author Organization [facility] Care Team Providers Name Role Phone Unavailable Unavailable Unavailable Problems Condition Condition Condition Status Onset Resolution Last Treating Comments Name Details Category Date Date Treatment Clinician Date Pain frequent Pain Mgmt Active 2018-06 Mary pain 06-20 [place] 09:16: [id number] 00 Cardio edema Cardiovasc Active 2018-06 Mary ular 06-20 [place] 09:16: [id number] 00 Respiratory dyspnea Respirator Active 2018-06 Mary present y 06-20 [place] 09:16: [id number] 00 Respiratory CPAP Respirator Active 2018-06 Mary treatments y 06-20 [place] in home 09:16: [id number] 00 Endo/Angelito anti-coagul Endo/Angelito Active 2018-06 Mary ation 06-20 [place] therapy 09:16: [id number] 00 Sensory impaired Sensory Active 2018-06 Mary hearing 06-20 [place] 09:16: [id number] 00 Nutrition nutritional Nutrition Active 2018-06 Mary restriction 06-20 [place] s 09:16: [id number] 00 Elimination urinary Eliminatio Active 2018-06 Mary frequency n 06-20 [place] 09:16: [id number] 00 Neuro confusion Neuro/Emot Active 2018-06 Mary present ion 06-20 [place] 09:16: [id number] 00 Activity ADL Activity Active 2018-06 Mary assistance 06-20 [place] required 09:16: [id number] 00 Activity self-care Activity Active 2018-06 Mary deficit 06-20 [place] 09:16: [id number] 00 Safety fall risk Safety Active 2018-06 Mary factor 06-20 [place] present 09:16: [id number] 00 Safety risk for Safety Active 2018-06 Mray hospitaliza 06-20 [place] tion 09:16: [id number] 00 Medication oral med Meds Active 2018-06 Mary assistance 06-20 [place] required 09:16: [id number] 00 Musculoskel requires Musculoske Active 2018-06 Mary etal human letal 06-20 Alessandra assist to 09:16: [id number] leave home 00 Musculoskel transfer Musculoske Active 2018-06 Mary etal assistance letal 06-20 [place] required 09:16: [id number] 00 Safety can be left Safety Active 2018-06 [place] alone for 06-20 [place] only short 10:05: [id number] periods 00 ROM ROM PT: ROM Active 2018-06 [place] deficit: LE 06-20 [place] 10:05: [id number] 00 ROM knowledge/s PT: ROM Active 2018-06 [place]pe kill 06-20 [place] deficit LE: 10:05: [id number] pt 00 Strength/To strength PT: Active 2018-06 [place] ne/Motor deficit: LE Strength 06-20 [place] Control 10:05: [id number] 00 Strength/To knowledge/s PT: Active 2018-06 [place] ne/Motor kill Strength 06-20 [place] Control deficit LE: 10:05: [id number] pt 00 Bed mobility/tr PT/OT: Bed Active 2018-06 [place] Mobility/Tr ansfer Mobility/T 06-20 Rajat ansfer device ransfer 10:05: [id number] present 00 Bed transfer PT/OT: Bed Active 2018-06 [place] Mobility/Tr deficit: Mobility/T 06-20 Rajat ansfer shower/tub ransfer 10:05: [id number] 00 Bed transfer PT/OT: Bed Active 2018-06 [place] Mobility/Tr deficit: Mobility/T 06-20 Rajat ansfer vehicle ransfer 10:05: [id number] 00 Bed knowledge/s PT/OT: Bed Active 2018-06 [place] Mobility/Tr kill Mobility/T 06-20 [place] ansfer deficit: pt ransfer 10:05: [id number] 00 Balance/End balance/search marketing coordinator PT/OT: Active 2018-06 Pepe urance rdination Balance/En 06-20 [place] deficit durance 10:05: [id number] 00 OT: Self self-care OT: Active 2018-06 Pepe Care deficit Self-Care 06-20 [place] 10:05: [id number] 00 OT: Self knowledge/s OT: Active 2018-06 Pepe Care kill Self-Care 06-20 [place] deficit: pt 10:05: [id number] 00 Gait/Locomo gait PT/OT: Active 2018-06 Pepe negreteon assistive Gait/Locom -14 [place] problems device otion 10:05: [id number] present 00 Gait/Locomo knowledge/s PT/OT: Active 2018-06 [place] negreteon kill Gait/Locom -14 [place] problems deficit: pt otion 10:05: [id number] 00 Gait/Locomo gait PT/OT: Active 2018-06 Pepe negreteon deficit Gait/Locom 14 [place] problems otion 10:05: [id number] 00 Allergies, Adverse Reactions, Alerts Allergy Name Allergy [...] Medications For This For This Patient Patient Vital Signs Vital Name Observation Time Observation Value Comments SYSTOLIC mm[Hg] 2019-04-20 18:08:51 110 mm[Hg] mm[Hg] Method: Sit DIASTOLIC mm[Hg] 2019-04-20 18:08:51 60 mm[Hg] mm[Hg] Method: Sit PULSE 2019-04-20 18:08:51 76 /min /min RESP RATE 2019-04-20 18:08:51 16 /min /min TEMP 2019-04-20 18:08:51 97.6 [degF] Procedures This patient has no known procedures. Results This patient has no known results.
--- OUTSIDE RECORDS SUMMARY | 2019-04-22 15:06 | XMS REPORT ---
:1935 Author Organization [facility] Care Team Providers Name Role Phone Unavailable Unavailable Unavailable Problems Condition Condition Condition Status Onset Resolution Last Treating Comments Name Details Category Date Date Treatment Clinician Date Pain frequent Pain Mgmt Active 2018-06 Mary pain 06-20 [place] 09:16: [id number] Cardio edema Cardiovasc Active 2018-06 Mary ular 06-20 [place] 09:16: [id number] Respiratory dyspnea Respirator Active 2018-06 Mary present y 06-20 [place] 09:16: [id number] 00 Respiratory CPAP Respirator Active 2018-06 Mary treatments y 06-20 [place] in home 09:16: [id number] 00 Endo/Angelito anti-coagul Endo/Angelito Active 2018-06 Mary ation 06-20 [place] therapy 09:16: [id number] 00 Sensory impaired Sensory Active 2018-06 Mary hearing 06-20 [place] 09:16: [id number] 00 Nutrition nutritional Nutrition Active 2018-06 Mary restriction 06-20 [place] s 09:16: [id number] 00 Elimination urinary Eliminatio Active 2018-06 Mary frequency n 06-20 [place] 09:16: [id number] 00 Neuro confusion Neuro/Emot Active 2018-06 Mary present ion 06-20 [place] 09:16: [id number] 00 Activity ADL Activity Active 2018-06 Mary assistance 06-20 [place] required 09:16: [id number] 00 Activity self-care Activity Active 2018-06 Mary deficit 06-20 [place] 09:16: [id number] 00 Safety fall risk Safety Active 2018-06 Mary factor 06-20 [place] present 09:16: [id number] 00 Safety risk for Safety Active 2018-06 Mary hospitaliza 06-20 [place] tion 09:16: [id number] 00 Medication oral med Meds Active 2018-06 Mray assistance 06-20 [place] required 09:16: [id number] 00 Musculoskel requires Musculoske Active 2018-06 Mary etal human letal 06-20 [place] assist to 09:16: [id number] leave home 00 Musculoskel transfer Musculoske Active 2018-06 Mary etal assistance letal 06-20 [place] required 09:16: [id number] 00 Safety can be left Safety Active 2018-06 [place] alone for 06-20 [place] only short 10:05: [id number] periods 00 ROM ROM PT: ROM Active 2018-06 [place] deficit: LE 06-20 [place] 10:05: [id number] 00 ROM knowledge/s PT: ROM Active 2018-06 Pepe kill 06-20 [place] deficit LE: 10:05: [id number] pt 00 Strength/To strength PT: Active 2018-06 [place] ne/Motor deficit: LE Strength 06-20 [place] Control 10:05: [id number] 00 Strength/To knowledge/s PT: Active 2018-06 [place] ne/Motor kill Strength 06-20 [place] Control deficit LE: 10:05: [id number] pt 00 Bed mobility/tr PT/OT: Bed Active 2018-06 [place] Mobility/Tr ansfer Mobility/T 06-20 [place]at ansfer device ransfer 10:05: [id number] present 00 Bed transfer PT/OT: Bed Active 2018-06 [place] Mobility/Tr deficit: Mobility/T 06-20 Rajat ansfer shower/tub ransfer 10:05: [id number] 00 Bed transfer PT/OT: Bed Active 2018-06 [place] Mobility/Tr deficit: Mobility/T 06-20 Rajat ansfer vehicle ransfer 10:05: [id number] 00 Bed knowledge/s PT/OT: Bed Active 2018-06 [place] Mobility/Tr kill Mobility/T 06-20 [place] ansfer deficit: pt ransfer 10:05: [id number] 00 Balance/End balance/promotions coordinator PT/OT: Active 2018-06 [place] urance rdination Balance/En 06-20 [place] deficit durance 10:05: [id number] 00 OT: Self self-care OT: Active 2018-06 [place] Care deficit Self-Care 06-20 [place] 10:05: [id number] 00 OT: Self knowledge/s OT: Active 2018-06 [place] Care kill Self-Care 06-20 [place] deficit: pt 10:05: [id number] 00 Gait/Locomo gait PT/OT: Active 2018-06 [place] negreteon assistive Gait/Locom -14 [place] problems device otion 10:05: [id number] present 00 Gait/Locomo knowledge/s PT/OT: Active 2018-06 [place] negreteon kill Gait/Locom -14 [place] problems deficit: pt otion 10:05: [id number] 00 Gait/Locomo gait PT/OT: Active 2018-06 [place] negreteon deficit Gait/Locom 14 [place] problems otion 10:05: [id number] 00 Allergies, Adverse Reactions, Alerts Allergy Name [...]
--- OUTSIDE RECORDS SUMMARY | 2019-04-22 15:06 | XMS REPORT | Continuity of Care Document ---
:1935 External Reference #:[id number] Author Name Rosemarie Sanchez N.P. (transmitted by agent of provider Deanne Peralta) Address [address] [place] [id number] Care Team Providers Name Role Phone Major Lund MD - Family Medicine Care Team Information Pari Mutuel Clerk Problems Active Problems Provider Date Chronic diastolic [...] Use Never Used Drugs Smoking Status Reviewed: 04/17/19 Patient is a former quit in 1972 smoker Exercise Type/Frequency Exercises regularly stationary bike 5 minutes daily. - leg problems prohibiting recently Allergies, Adverse Reactions, Alerts Active Allergies Reaction Severity Comments Date Amlodipine Lower leg edema 10/20/2018 Lipitor myalgias 10/20/2018 Inactive Allergies NKDA 02/10/2005 Medications Active Medications SIG Qnty Indications Ordering Date Provider Valsartan-Hydrochlorot 1 tab by mouth 90tabs Sami Berumen 10/20/2018 hiazide every day Sandra Kaur 160-12.5mg Tablets Compression Stockings wear on both 2units R60.9 Rosemarie Sanchez, 11/02/2017 legs daily and N.P. Misc remove at night Protonix 1 tab by mouth Unknown 09/29/[address] twice daily Red Yeast Rice 2 capsules by Sami Berumen 09/10/2016 600mg mouth daily Sandra Kaur Tablets Coreg 1 by mouth twice 180tabs Sami Berumen 09/17/2015 12.5mg Tablets a day Sandra Kaur Cpap QHS Sami Berumen 10/17/2007 Sandra Kaur Cod Liver Oil 1 tablet by Sami Berumen 02/10/2005 Tablets mouth daily Sandra Kaur Hydrocodone-Acetaminop 1 tab -8 hours Unknown hen as needed for 5-325mg Tablets pain Systane Icaps Areds2 1po qd Unknown Areds2 Capsules Probiotic Acidophilus 1 by mouth every Unknown day Capsules Vitamin B-12 ER 1 by mouth every Unknown 1000mcg day Tablets ER Acetaminophen Extra Take 2 tabs by Unknown Strength mouth every 8 500mg Tablets hrs as needed for pain Ferrous Gluconate 1 tab by mouth Unknown daily 324(38Fe) mg Tablets Acidophilus Probiotic 1 tab by mouth Unknown Complex daily Tablets Tussin Chest 10ml by mouth Unknown Congestion every 4 hrs prn 100mg/5ML cough Syrup Aspirin take 1 by mouth Unknown 325mg Tablets daily Spironolactone 1 by mouth every 90tabs Rosemarie Sanchez, 25mg day N.P. Tablets Calcium 1200MG Vit D3 Take one by Unknown 25mcg mouth daily Pataday 1 drop each eye Unknown 0.2% daily Restasis one drops both Unknown 0.05% Emulsion eyes twice a day Garlic 1 po qd Unknown 1000mg Capsules [place]-3 1 po qd. 30caps Unknown 360-1200mg Capsules History Medications Icaps MV One by mouth daily Sami Kaur, 10/19/2018 - Donna Flores 03/28/2019 Immunizations Description No Information Available Vital Signs Date Vital Result Comment 04/17/2019 3:28pm Height 62 inches 5'2" Weight 181.00 lb reported Heart Rate 88 /min BP Systolic Sitting 166 mmHg Ra< reg BP Diastolic Sitting 78 mmHg Ra< reg BMI (Body Mass Index) 33.1 kg/m2 Ejection Fraction 60%-65% 01/10/19 echo 03/27/2019 8:49am Height 62 inches 5'2" Weight 175.00 lb Non weight bear on Rle Heart Rate 82 /min radial,regular BP Systolic Sitting 136 mmHg Rue, reg cuff BP Diastolic Sitting 54 mmHg Rue, reg cuff BMI (Body Mass Index) 32.0 kg/m2 Ejection Fraction 60%-65% echo 01/10/19 Results Test Acquired Date Facility Test Result H/L Range Note Order 04/11/2019 [facility] Holter Monitor <pending> [address] [place] [address] [phone] Procedures Date Code Description Status 04/11/2019 40497 Holter Monitor Review (24 hr)dr review & interp only Completed 04/11/2019 89988 ECG Monitor/Recording W/Visual Superimposition Scanning Completed 03/27/2019 51279 EKG Tracing & Interpretation Completed 02/13/2019 76242 EKG Tracing & Interpretation Completed 01/10/2019 33520 ECHO Transthoracic, Real-Time 2D With Doppler And Color Completed Flow 01/10/2019 38670 ECHO Transthoracic, Real-Time 2D With Doppler And Color Completed Flow 10/20/2018 34166 EKG Tracing & Interpretation Completed Medical Devices Description No Information Available Encounters Type Date Location Provider Dx Diagnosis Office Visit 03/27/2019 [facility] Viviana Sanchez, I42.9 Cardiomyopathy, 9:00a N.P. unspecified I10 Essential (primary) hypertension E78.00 Pure hypercholesterolemia, unspecified I34.0 Nonrheumatic mitral (valve) insufficiency R60.9 Edema, unspecified I49.3 Ventricular premature depolarization Office Visit 02/13/2019 [facility] Rosemarie Winchester Z01.810 Encounter for 2:30p Cardiology Marcel Sanchez preprocedural cardiovascular examination I42.9 Cardiomyopathy, unspecified I10 Essential (primary) hypertension E78.00 Pure hypercholesterolemia, unspecified E66.9 Obesity, unspecified I34.0 Nonrheumatic mitral (valve) insufficiency M25.9 Joint disorder, unspecified Office Visit 10/20/2018 [facility] Berumen I42.9 Cardiomyopathy, 10:00a Viviana Kaur M.D. unspecified I10 Essential (primary) hypertension E66.9 Obesity, unspecified E78.00 Pure hypercholesterolemia, unspecified R60.9 Edema, unspecified I34.0 Nonrheumatic mitral (valve) insufficiency Assessments Date Code Description Provider 04/17/2019 I49.3 Ventricular premature depolarization Rosemarie S. Daniel, N.P. 04/17/2019 R94.31 Abnormal electrocardiogram [ECG] [EKG] Rosemarie S. Foster, N.P. 04/17/2019 I42.9 Cardiomyopathy, unspecified Rosemarie S. Foster, N.P. 04/17/2019 I10 Essential (primary) hypertension Rosemarie S. Foster, N.P. 04/17/2019 E78.00 Pure hypercholesterolemia, unspecified Rosemarie S. Foster, N.P. 04/11/2019 I49.3 Ventricular premature depolarization Nurse Visit cc 03/27/2019 R94.31 Abnormal electrocardiogram [ECG] [EKG] Sami Kaur M.D. 03/27/2019 I42.9 Cardiomyopathy, unspecified Rosemarie S. Foster, N.P. 03/27/2019 I10 Essential (primary) hypertension Rosemarie S. Foster, N.P. 03/27/2019 E78.00 Pure hypercholesterolemia, unspecified Rosemarie S. Foster, N.P. 03/27/2019 I34.0 Mitral valve disorder Rosemarie S. Daniel, N.P. 03/27/2019 R60.9 Edema, unspecified Rosemarie S. Foster, N.P. 03/27/2019 I49.3 Ventricular premature depolarization Rosemarie S. Daniel, N.P. 02/13/2019 I42.9 Cardiomyopathy, unspecified Eliezer Wyman M.D. 02/13/2019 Z01.810 Encounter for preprocedural Rosemarie S. Foster, N.P. cardiovascular examination 02/13/2019 I42.9 Cardiomyopathy, unspecified Rosemarie S. Foster, N.P. 02/13/2019 I10 Essential (primary) hypertension Rosemarie S. Daniel, N.P. 02/13/2019 E78.00 Pure hypercholesterolemia, unspecified Rosemarie S. Foster, N.P. 02/13/2019 E66.9 Obesity, unspecified Rosemarie Sanchez, N.P. 02/13/2019 I34.0 Mitral valve disorder Rosemarie Sanchez, N.P. 02/13/2019 M25.9 Joint disorder, unspecified Rosemarie Sanchez, N.P. 01/10/2019 I42.9 Cardiomyopathy, unspecified Sami Kaur M.D. 01/10/2019 I42.9 Cardiomyopathy, unspecified [place] ECHO Schedule 10/20/2018 I42.9 Cardiomyopathy, unspecified Sami Kaur M.D. 10/20/2018 I10 Essential (primary) hypertension Sami Kaur M.D. 10/20/2018 E66.9 Obesity, unspecified Sami Kaur M.D. 10/20/2018 E78.00 Pure hypercholesterolemia, rosalba Kaur M.D. 10/20/2018 R60.9 Edema, rosalba Kaur M.D. 10/20/2018 I34.0 Mitral valve disorder Sami Kaur M.D. Plan of Treatment Future Appointment(s):10/24/2019 10:20 am - Sami [facility] M.D. at [facility]04/17/2019 - Rosemarie Sanchez, N.P.I49.3 Ventricular premature wnpjqzjaeyanheP15.31 Abnormal electrocardiogram [ECG] [EKG]I42.9 Cardiomyopathy , [id number] Essential (primary) hypertensionFollow up:10/2019 JFMRecommendations:BP high here as it usually is Take BP 1-2x daily at least an hour after taking medications. We willcheck in 2-3 weeks to see how BPs are at homeE78.00 Pure hypercholesterolemia, unspecifiedRecommendations:I will set up home draw to have lipids drawn in the next 2 weeks; we will recheck kidney function aswell. Functional Status Description No Information Available Mental Status Description No Information Available Referrals Description No Information Available
--- OUTSIDE RECORDS SUMMARY | 2019-04-22 15:07 | XMS REPORT | Continuity of Care Document ---
:1935 External Reference #:[id number] Author Name Rosemarie Sanchez N.P. (transmitted by agent of provider Eliza Vieira) Address [address] [place] [id number] Care Team Providers Name Role Phone Major Lund MD - Family Medicine Care Team Information Accounts Receivable Specialist [phone] Problems Active Problems Provider Date Chronic diastolic [...] 02/10/2005 Tablets mouth daily Sandra Kaur Aspirin take 1 by mouth Unknown 325mg Tablets once a day. Spironolactone 1 by mouth Unknown 25mg Tablets every day Probiotic Formula 1 daily Unknown [id number] Capsules B12 1 tablet po Unknown 1000mcg daily Calcium 1200MG Vit D3 Take one by Unknown 25mcg mouth daily Pataday 1 drop each eye Unknown 0.2% daily Iron 1 tablet daily Unknown 28mg Restasis one drops both Unknown 0.05% Emulsion eyes twice a day Vicodin 1 po qhs pain 30tabs Unknown 5-325mg Tablets Garlic 1 po qd Unknown 1000mg Capsules [place]-3 1 po qd. 30caps Unknown 360-1200mg Capsules History Medications Irbesartan 1 by mouth 30tabs Rosemarie Sanchez, 09/27/2018 - 150mg Tablets every day N.P. 10/20/2018 Hydrochlorothiazide 1 by mouth 30caps Rosemarie Sanchez, 09/27/2018 - 12.5mg Capsules every day N.P. 10/19/2018 Immunizations Description No Information Available Vital Signs Date Vital Result Comment 03/27/2019 8:49am Height 62 inches 5'2" Weight 152.75 lb Non weight bear on Rle Heart Rate 82 /min radial,regular BP Systolic Sitting 136 mmHg Rue, reg cuff BP Diastolic Sitting 54 mmHg Rue, reg cuff BMI (Body Mass Index) 27.9 kg/m2 Ejection Fraction 60%-65% echo 01/10/19 02/13/2019 [...] Information Available Procedures Date Code Description Status 03/27/2019 77010 EKG Tracing & Interpretation Completed 02/13/2019 28874 EKG Tracing & Interpretation Completed 01/10/2019 38865 ECHO Transthoracic, Real-Time 2D With Doppler And Color Completed Flow 01/10/2019 81844 ECHO Transthoracic, Real-Time 2D With Doppler And Color Completed Flow 10/20/2018 21024 EKG Tracing & Interpretation Completed Medical Devices Description No Information Available Encounters Type Date Location Provider Dx Diagnosis Office Visit 02/13/2019 [facility] Rosemarie Sanchez, Z01.810 Encounter for 2:30p N.P. preprocedural cardiovascular examination I42.9 Cardiomyopathy, unspecified I10 Essential (primary) hypertension E78.00 Pure hypercholesterolemia, unspecified E66.9 Obesity, unspecified I34.0 Nonrheumatic mitral (valve) insufficiency M25.9 Joint disorder, unspecified Office Visit 10/20/2018 [place] Sami Berumen I42.9 Cardiomyopathy, 10:00a Cardiology Sandra Kaur unspecified I10 Essential (primary) hypertension E66.9 Obesity, unspecified E78.00 Pure hypercholesterolemia, unspecified R60.9 Edema, unspecified I34.0 Nonrheumatic mitral (valve) insufficiency Office Visit 10/06/2018 3:00p [facility] Italo Mancilla, I87.2 Venous MD insufficiency (chronic) (peripheral) Assessments Date Code Description Provider 03/27/2019 I42.9 Cardiomyopathy, unspecified Rosemarie Sanchez, N.P. 03/27/2019 I10 Essential (primary) hypertension Rosemarie Sanchez, N.P. 03/27/2019 E78.00 Pure hypercholesterolemia, unspecified Rosemarie Sanchez, N.P. 03/27/2019 I34.0 Mitral valve disorder Rosemarie Sanchez, N.P. 03/27/2019 R60.9 Edema, unspecified Rosemarie Sanchez, N.P. 03/27/2019 I49.3 Ventricular premature depolarization Rosemarie Sanchez, N.P. 02/13/2019 I42.9 Cardiomyopathy, unspecified Eliezer Wyman M.D. 02/13/2019 Z01.810 Encounter for preprocedural Rosemarie Sanchez, N.P. cardiovascular examination 02/13/2019 I42.9 Cardiomyopathy, unspecified Rosemarie Sanchez, N.P. 02/13/2019 I10 Essential (primary) hypertension Rosemarie Ranulfo Daniel, N.P. 02/13/2019 E78.00 Pure hypercholesterolemia, unspecified Rosemarie Sanchez, N.P. 02/13/2019 E66.9 Obesity, unspecified Rosemarie Ranulfo Sanchez, N.P. 02/13/2019 I34.0 Mitral valve disorder Rosemarie Sanchez, N.P. 02/13/2019 M25.9 Joint disorder, unspecified Rosemarie Sanchez, N.P. 01/10/2019 I42.9 Cardiomyopathy, unspecified Sami Kaur M.D. 01/10/2019 I42.9 Cardiomyopathy, unspecified [place] ECHO Schedule 10/20/2018 I42.9 Cardiomyopathy, unspecified Sami Kaur M.D. 10/20/2018 I10 Essential (primary) hypertension Sami Kaur M.D. 10/20/2018 E66.9 Obesity, oscarified Sami Kaur M.D. 10/20/2018 E78.00 Pure hypercholesterolemia, rosalba Kaur M.D. 10/20/2018 R60.9 Edema, rosalba Kaur M.D. 10/20/2018 I34.0 Mitral valve disorder Sami Kaur M.D. 10/06/2018 I87.2 Venous insufficiency (chronic) Italo Mancilla MD (peripheral) Plan of Treatment Future Appointment(s):04/17/2019 3:00 pm - Rosemarie Sanchez N.Odin at [facility]04/12/2019 10:30 am - Nurse Visit cc at [facility]04/11/2019 12 :00 pm - Nurse Visit cc at [facility]03/27/2019 - Rosemarie Sanchez N.P.I42.9 Cardiomyopathy, unspecifiedRecommendations:Change carvedilol to 12.5 mg tab twice [id number] Essential (primary) uasxyxdthbbzV16.00 Pure hypercholesterolemia, enhnftemwdaO60.0 Mitral valve tacwifsjU77.9 Edema, unspecifiedFollow up:OV 3 weeks BP/ leg swelling SaraRecommendations:STOP Furosemide START Spironolactone.I49.3 Ventricular premature depolarizationNew Orders:Holter Monitor, Scheduled: 04/11/19 Functional Status Description No Information Available Mental Status Description No Information Available Referrals Description No Information Available
--- OUTSIDE RECORDS SUMMARY | 2019-04-22 15:07 | XMS REPORT | Summary of Care ---
:1935 Author Organization [facility] Address [address] [facility] [place] [address] Care Team Providers Name Role Phone Major Lund Primary Care Provider Sami Kaur MD Unavailable Ijeoma Burnham OD Unavailable Rob Jimenez DMD Unavailable Reason for Visit Reason Comments Surgical Followup RTH REVISION Encounter Details Date Type Department Care Team Description 04/07/2019 Office Visit [facility] - Angelito Nicole, History of revision Doug LINO of total replacement [address] [facility] of right hip joint [address] [place] [address] (Primary Dx) [place] [address] [phone] Allergies Active Allergy Reactions Severity Noted Date Comments Milk GI Reaction 02/25/2012 CAN TOLERATE CHEESE AND ICE CREAM documented as of this encounter (statuses as of 04/07/2019) Medications Medication Sig Dispensed Refills Start Date End Date Status Cod Liver Oil 1000 MG Take 1 Cap by 0 Active Oral Cap mouth EVERY MORNING. Garlic 1000 MG Oral Cap Take 1 Cap by 0 Active mouth EVERY MORNING. Red Yeast Rice 600 MG Take 2 Caps by 0 Active Oral Cap mouth TWICE DAILY. [place]-3 Fatty Acids Take 1 Cap by 0 Active (FISH OIL) 1000 MG Oral mouth EVERY Cap MORNING. Kkowvar-Hlyycgxxm-Vpvilx Take 1 Tab by 0 Active n D (CALCIUM 1200+D3 PO) mouth DAILY. Multiple Take by mouth 0 Active Vitamins-Minerals DAILY. (ICAPS) Oral Cap Olopatadine HCl Place to the 0 Active (PATADAY) 0.2 % external eye Ophthalmic Solution DAILY. cyclosporin (RESTASIS) Place to the 0 Active 0.05 % Ophthalmic external eye Emulsion TWICE DAILY. Cyanocobalamin (B-12) Take 2,000 mcg 0 Active 1000 MCG Oral Cap by mouth DAILY. Probiotic Product Take 1 Cap by 0 Active (PROBIOTIC FORMULA PO) mouth. pantoprazole (PROTONIX) TAKE 1 TABLET BY 180 Tab 3 09/26/2018 Active 40 MG Oral Tab EC MOUTH TWICE A DAY Valsartan-hydroCHLOROthi TAKE 1 TABLET BY 90 Tab 1 01/10/2019 Active azide 160-12.5 MG Oral MOUTH EVERY DAY TabIndications: Essential hypertension aspirin 325 MG Oral Tab Take 1 Tab by 60 Tab 0 02/23/2019 Active EC mouth TWICE DAILY. acetaminophen (TYLENOL) Take 2 Tabs by 60 Tab 0 02/23/2019 Active 500 MG Oral Tab mouth EVERY EIGHT HOURS. cyclobenzaprine Take 1 Tab by 42 Tab 0 02/23/2019 Active (FLEXERIL) 5 MG Oral Tab mouth THREE TIMES DAILY NEEDED (muscle spasms). ferrous gluconate 324 Take 324 mg by 30 Tab 0 02/24/2019 Active (38 Fe) MG Oral Tab mouth DAILY. sennosides-docusate Take 2 Tabs by 60 Tab 0 02/23/2019 Active sodium (SENOKOT-S, SENNA mouth TWO TIMES S) 8.6-50 MG Oral Tab DAILY NEEDED (constipation). tramadol (ULTRAM) 50 MG Take 1 Tab by 28 Tab 0 02/23/2019 Active Oral Tab mouth EVERY SIX HOURS NEEDED (post op pain). Max Daily Amount: 200 mg. carvedilol (COREG) 25 MG Take 1 Tab by 60 Tab 0 03/15/2019 Active Oral Tab mouth TWO TIMES DAILY WITH MEALS. sucralfate (CARAFATE) 1 Take 1 Tab by 120 Tab 0 03/15/2019 Active GM Oral Tab mouth EVERY SIX HOURS. documented as of this encounter (statuses as of 04/07/2019) Active Problems Problem Noted Date History of revision of total replacement of right hip joint 04/07/2019 Closed fracture of right femur 03/15/2019 Chronic pain of right knee 12/30/2018 Primary [...] as of this encounter (statuses as of 04/07/2019) Resolved Problems Problem Noted Date Resolved Date [...] as of this encounter (statuses as of 04/07/2019) Immunizations Name Administration Dates Next Due Celestone [...] on filedocumented in this encounter Progress Notes Angelito Nicole MD - 04/07/2019 11:00 AM EDT PATIENT: Mireille Seth : 1935 DATE OF SERVICE: 04/07/2019 SUBJECTIVE: Mireille Seth is a 84-y.o. female. 4 weeks status post revision right total hip arthroplasty for calcar fracture. Doing well, no acute issues OBJECTIVE: There were no vitals taken for this visit. Incision well healed. No peritroch tenderness. Range of motion Flexion 0-90, ir -20, er-30, abd-35, add-20. Limb lengths grossly equal. Trendelenburg negative. Distal ext neuro intact. X-rays show well aligned cementless total hip arthroplasty with cables in place , no evidence of loosening ASSESSMENT: ICD-9-CM ICD-10-CM 1. History of revision of total replacement of right hip joint V43.64 Z96.641 XR HIP 2 VIEWS UNILAT W/PELVIS RIGHT CANCELED: XR HIP 3 VIEWS UNILAT W/PELVIS RIGHT PLAN: She states she is able to ambulate 170 feet She can dress herself She can transfer in and out of bed She has helped lined up at home House is wheelchair and walker accessible Has kamode at bedside She really would like to dc to home which is reasonable with help that she has lined up She would benefit from home Pt Activity as tolerated Continue toe touch Follow up in 3 weeks with xrays Author: Angelito Nicole MD 04/07/2019 10:58 Portions of this note were made with voice recognition software documented in this encounter Plan of Treatment Date Type Specialty Care Team Description 04/10/2019 Office Visit Family Practice Major Lund MD [address] [place] [address] [phone] Name Type Priority Associated Diagnoses Date/Time XR HIP 2 VIEWS Imaging Routine History of revision of 04/07/2019 10:47 AM EDT UNILAT W/PELVIS total replacement of RIGHT right hip joint Name Type Priority Associated Diagnoses Order Schedule XR HIP 2 VIEWS UNILAT Imaging Routine History of revision of Expected: , W/PELVIS RIGHT total replacement of Expires: 03/30/2020 right hip joint Health Maintenance Due Date Last Done Comments HIV SCREENING 01/30/1952 FALL RISK ASSESSMENT 2002 ZOSTER IMMUNIZATION SERIES 06/28/2017 05/03/2017 (2 of 3) DEPRESSION SCREENING 12/21/2018 12/21/2017 MEDICARE ANNUAL WELLNESS 12/21/2018 12/21/2017, 11/26/2015, VISIT 11/26/2015, Additional history exists INFLUENZA VACCINE (#1) 2019 02/25/2018, 02/22/2017, 03/04/2016, Additional history exists HEMOGLOBIN A1C 02/23/2019 08/23/2018, 04/01/2018, 08/27/2017, Additional history exists Diabetic Eye Exam 03/08/2019 03/08/2018 FOOT EXAM 10/08/2019 10/07/2018, 10/07/2018, 08/27/2017 COLONOSCOPY SCREENING 05/18/2021 05/18/2016, 05/18/2016, 04/14/2011, Additional [...] Problems Progress Blood Pressure Blood Pressure Essential 155/75 No Kevon, < 140/90 hypertension (03/15/2019 MD Major 8:30 AM EDT) Note: Hypertension Care Plan Based [...] Educational Resources. record my blood pressure results. Jigsaw is safe and secure way for you [...] Educational Resources: National Heart, Lung, & Blood [place] http://nhlbi.nih.gov/hbp/index.html The DASH Diet Eating Plan http://www.nhlbi.nih.gov/health/health-topics/ topics/dash/ Academy of Nutrition & DIetetics http://eatright.org National Smoking Cessation Site http://smokefree.gov Blood Pressure < Blood Pressure Essential 155/75 (03/15/2019 No Major Lund, 140/90 hypertension 8:30 AM EDT) Note: Hypertension Care Plan Based [...] Educational Resources: National Heart, Lung, & Blood [place] http://nhlbi.nih.gov/hbp/index.html The DASH Diet Eating Plan http://www.nhlbi.nih.gov/health/health-topics/ topics/dash/ Academy of Nutrition & DIetetics http://eatright.org National Smoking Cessation Site http://smokefree.gov Blood Pressure < 150/90 Blood Pressure 155/75 (03/15/2019 8:30 No Major Lund MD AM EDT) Note: [...] better. Weight loss vs. 18 mo Lifestyle 13.3 (03/06/2019 9:00 PM No Major Lund MD max (lbs) >= 10 EDT) Note: This is an individualized lifestyle goal [...] of this encounter Implants Implanted Type Area Powerhouse Mechanic Helper Device Shelf Model / Identifier Expiration Serial / Lot Date Ringloc + Acetabular Shell Size 50 - [id number] Right: [employer] [id number] / Implanted: Qty: 1 on 02/20/2019 by Angelito Nicole MD at [facility] Hip / [id number] Dual Mobility Acetabular Liner 40 D - [id number] Right: MIKY MACK 06/09/2027 [id number] / Implanted: Qty: 1 on 02/20/2019 by Angelito Nicole MD at [facility] / [id number] Taperloc Complete Fem Stem - So Sz 9 - [id number] Right: MIKY [employer] 10/14/2028 [id number] / Implanted: Qty: 1 on 02/20/2019 by Angelito Nicole MD at [facility] Hip / [id number] Ceramic Option Taper Sleeve Size Std - [id number] Right: MIKY [employer] 05/03/2028 [id number] / Implanted: Qty: 1 on 02/20/2019 by Angelito Nicole MD at [facility] Hip / [id number] Biolox Ceramic Head Size 28 - [id number] Right: MIKY [employer] 2027 [id number] / Implanted: Qty: 1 on 02/20/2019 by Angelito Nicole MD at [facility] Hip / [id number] Arcomxl Active Articulation Bearing 40mm - [id number] Right: MIKY GIRON 08/17/2022 [id number] / Implanted: Qty: 1 on 02/20/2019 by Angelito Nicole MD at [facility] / [id number] Femoral Head,Biolox Delta Ceramic Right: MIKYCORNEL GIRON 10/04/2028 00- [id number] / Implanted: Qty: 1 on 03/08/2019 by Angelito Nicole MD at [facility] / [id number] Stem , Avenir Bermudez Standard Right: MIKYCORNEL GIRON 03/06/2023 [id number] / Implanted: Qty: 1 on 03/08/2019 by Angelito Nicole MD at [facility] / [id number] Cable Ready, Gtr Cable 1.8 Tv - [id number] Right: MIKY GIRNO 2028 2231-09-23 / Implanted: Qty: 1 on 03/08/2019 by Angelito Nicole MD at [facility] / [id number] Cable Ready, Gtr Cable 1.8 Tv - [id number] Right: MIKY GIRON 2028 2231-09-23 / Implanted: Qty: 2 on 03/08/2019 by Angelito Nicole MD at [facility] / [id number] Arcomxl Active Articulation Bearing 40mm - [id number] Right: MIKY GIRON 01/20/2024 [id number] / Implanted: Qty: 1 on 03/08/2019 by Angelito Nicole MD at [facility] / [id number] documented as of this encounter Results Not on filedocumented in this encounter Visit Diagnoses Diagnosis History of revision of total replacement of right hip joint - Primary documented in this encounter Insurance Payer Benefit Plan / Subscriber ID Effective Dates Phone Address Type Group AETNA MEDICARE AETNA MEDICARE xxxxxxxx 2017-Present [employer] ADVANTAGE (Home) [address] [phone] [place], [place] (Work) [id number] documented as of this encounter Advance Directives Type Date Recorded 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 Yes Order was discussed with: Patient I discussed all options and patient/surrogate requested and agreed to: Full Code Full Code 02/20/2019 12:01 PM 03/06/2019 8:48 PM Does the patient have decision making capacity? Yes Order was discussed with: Patient I discussed all options and patient/surrogate requested and agreed to: Full Code
--- OUTSIDE RECORDS SUMMARY | 2019-04-22 15:07 | XMS REPORT | Summary of Care ---
:1935 Author Organization [facility] Address [address] [address] Care Team Providers Name Role Phone Major Felix Primary Care Provider Sami Kaur MD Unavailable Ijeoma Burnham OD Unavailable Rob Jimenez DMD Unavailable Reason for Referral (Routine) Status Reason Specialty Diagnoses / Procedures Referred By Contact Referred To Contact Heather Palmer MD [address] [address] Scheduling Instructions Reason for Consult: pt went for EGD today, but she was found to have multiple PVCs, PVc burden is very high, please evaluate and assist in management, her electrolytes are OK, thanks Patient Background: Mireille Seth is a 84-y.o. female Active Problems: * No active hospital problems. * No results found for: TROPONIN (Routine) Status Reason Specialty Diagnoses / Procedures Referred By Contact Referred To Contact Marty Murray PA-C [address] [address] Scheduling Instructions Reason for Consult: coffee ground emesis throughout the night, 2pt drop in hgb but did just had hip surgery. Please eval for gi bleed. Patient Background: Mireille Seth is a 84-y.o. female (Routine) Status Reason Specialty Diagnoses / Procedures Referred By Contact Referred To Contact Lisette August PA-C [address] [address] Scheduling Instructions Reason for Consult: post operative medical management Patient Background: Mireille Seth is a 84-y.o. female Reason for Visit Auth/Cert Status Reason Specialty Diagnoses / Procedures Referred By Contact Referred To Contact Encounter Details Date Type Department Care Team Description 03/06/2019 - Hospital Encounter [facility] 7 [facility] Diego Benitez MD [address] [address] Inpatient 03/15/2019 Desiree Nguyen MD [address] [address] 1 Heather Palomino MD [address] [address] [address] [address] Allergies Active Allergy Reactions Severity Noted Date Comments Milk GI Reaction 02/25/2012 CAN TOLERATE CHEESE AND ICE CREAM documented as of this encounter (statuses as of 03/16/2019) Medications Medication Sig Dispensed Refills Start Date End Date Status Cod Liver Oil 1000 MG Take 1 Cap by 0 Active Oral Cap mouth EVERY MORNING. Garlic 1000 MG Oral Take 1 Cap by 0 Active Cap mouth EVERY MORNING. Red Yeast Rice 600 MG Take 2 Caps by 0 Active Oral Cap mouth TWICE DAILY. Tyler-3 Fatty Acids Take 1 Cap by 0 Active (FISH OIL) 1000 MG mouth EVERY Oral Cap MORNING. Ottubzb-Ymmyemshq-Xhk Take 1 Tab by 0 Active zuleta D (CALCIUM mouth DAILY. 1200+D3 PO) Multiple Take by mouth 0 Active Vitamins-Minerals DAILY. (ICAPS) Oral Cap Olopatadine HCl Place to the 0 Active (PATADAY) 0.2 % external eye Ophthalmic Solution DAILY. cyclosporin Place to the 0 Active (RESTASIS) 0.05 % external eye Ophthalmic Emulsion TWICE DAILY. Cyanocobalamin (B-12) Take 2,000 mcg 0 Active 1000 MCG Oral Cap by mouth DAILY. Probiotic Product Take 1 Cap by 0 Active (PROBIOTIC FORMULA mouth. PO) pantoprazole TAKE 1 TABLET 180 Tab 3 09/26/2018 Active (PROTONIX) 40 MG Oral BY MOUTH TWICE Tab EC A DAY Valsartan-hydroCHLORO TAKE 1 TABLET 90 Tab 1 01/10/2019 Active thiazide 160-12.5 MG BY MOUTH EVERY Oral TabIndications: DAY Essential hypertension aspirin 325 MG Oral Take 1 Tab by 60 Tab 0 02/23/2019 Active Tab EC mouth TWICE DAILY. acetaminophen Take 2 Tabs by 60 Tab 0 02/23/2019 Active (TYLENOL) 500 MG Oral mouth EVERY Tab EIGHT HOURS. cyclobenzaprine Take 1 Tab by 42 Tab 0 02/23/2019 Active (FLEXERIL) 5 MG Oral mouth THREE Tab TIMES DAILY NEEDED (muscle spasms). ferrous gluconate 324 Take 324 mg by 30 Tab 0 02/24/2019 Active (38 Fe) MG Oral Tab mouth DAILY. sennosides-docusate Take 2 Tabs by 60 Tab 0 02/23/2019 Active sodium (SENOKOT-S, mouth TWO SENNA S) 8.6-50 MG TIMES DAILY Oral Tab NEEDED (constipation) . tramadol (ULTRAM) 50 Take 1 Tab by 28 Tab 0 02/23/2019 Active MG Oral Tab mouth EVERY SIX HOURS NEEDED (post op pain). Max Daily Amount: 200 mg. carvedilol (COREG) 25 Take 1 Tab by 60 Tab 0 03/15/2019 Active MG Oral Tab mouth TWO TIMES DAILY WITH MEALS. sucralfate (CARAFATE) Take 1 Tab by 120 Tab 0 03/15/2019 Active 1 GM Oral Tab mouth EVERY SIX HOURS. carvedilol (COREG) TAKE 1 TABLET 180 Tab 1 09/26/2018 Discontinued 12.5 MG Oral Tab BY MOUTH TWICE 9 A DAY spironolactone TAKE 2 TABLETS 180 Tab 0 02/14/2019 Discontinued (ALDACTONE) 25 MG BY MOUTH EVERY 9 Oral Tab DAY OXYcodone Take 1 Tab by 42 Tab 0 02/23/2019 Discontinued (OXY-IR,OXY-FAST) 5 mouth EVERY 9 MG Oral Tab FOUR HOURS NEEDED (post op pain). Max Daily Amount: 30 mg. documented as of this encounter (statuses as of 03/16/2019) Active Problems Problem Noted Date Closed fracture of right femur 03/15/2019 Chronic [...] 02/20/2008 Sleep Apnea 02/20/2008 COLON POLYPS 02/20/2008 Castellanos's esophagus 02/20/2008 Hearing Loss 02/20/2008 DILATED CARDIOMYOPATHY [...] as of this encounter (statuses as of 03/16/2019) Resolved Problems Problem Noted Date Resolved Date [...] as of this encounter (statuses as of 03/16/2019) Immunizations Name Administration Dates Next Due Celestone [...] Sign Reading Time Taken Comments Blood Pressure 155/75 03/15/2019 8:30 AM EDT Pulse 102 03/15/2019 8:41 AM EDT Temperature 37 03/15/2019 8:30 AM C (98.6 EDT F) Respiratory Rate 16 03/15/2019 8:30 AM EDT Oxygen Saturation 91% 03/15/2019 8:41 AM EDT Inhaled Oxygen Concentration - - Weight 82.4 kg (181 lb 11.2 oz) 03/06/2019 9:00 PM EDT Height 157.5 cm (5' 2") 03/06/2019 9:00 PM EDT Body Mass Index 33.23 03/06/2019 9:00 PM EDT documented in this encounter Discharge Summaries Heather Palmer MD - 03/15/2019 9:53 AM EDT [facility] [place] [address] Discharge Summary Patient ID: Mireille Seth [id number] 84-y.o. 1935 Admission date: 03/06/2019 Discharge date: 03/15/19 Admitting Physician: Desiree Nicole MD Indication for Admission: Right periprosthetic femur fracture Principal Diagnosis: Right periprosthetic femur fracture Other medical problems managed in the hospital: as below Discharged Condition: good Hospital Course: Patient has a recent history of right total hip arthroplasty performed on by Dr. Nicole. She states she was doing well till a day before coming to hospital, she was doing laundry and an article of clothing got stuck underneath her right leg. She pulled the clothing item out from under her foot and she felt a sharp pain. She was unable to bear much weight through the extremity and was havingsevere pain. She went to [facility] and x-rays and ct were performed. She was then transferred here for management of periprosthetic femur fracture. X-rays/CT - Right hip relatively nondisplaced periprosthetic femur fracture. There is some change inposition in the femoral component from prior imaging. She had right total hip arthroplasty revision done by Orthopedics. She was found to have other medical problems too, see below. IGNACIA on CKD stage3: resolved. - Hold aldactone,. Avoid nephrotoxins.resumed Valsartan/ HCTZ - US kidneys done, no obstruction. Recent Labs 03/13/19 0552 03/14/19 0629 NA 137 136 K 4.3 4.2 CL 107 105 CO2 24 23 GLUCOSE 145* 185* BUN 29* 20* CREATININE 1.1 0.9 CALCIUM 8.5 8.9 EGFR 48 60 Pneumonia; finished course of antibiotics. Right total hip arthroplasty revision: done by Orthopedics, she will need outpatient follow up withthem for 2 weeks, and DVT px for 2 weeks. Acute blood loss anemia; as per Ortho note, she is refusing for blood products. may be secondary to Surgery vs GI loss, GI help is appreciated, positive stool occult. Monitor. Started Iron supplements. Was scheduled for EGD yesterday but it got cancelled because of Tachycardia, she is refusing to get EGD again. Monitor Hb, and give her Iron supplements. Multiple PVCs: asymptomatic, electrolytes are OK, TSH low, FT4 normal . Negative Echo. Cardiology consulted, recommended to continue with Coreg and outpatient Holter and cardiology follow up., c/wCoregto 25 mg BID. SHE WILL NEED JOLTER MONITOR AFTER DISCHARGE FROM REHAB FACILITY. She was evaluated and was recommended for STR. She is being discharged for STR, Consults: CONSULT TO HOSPITALIST CONSULT TO GASTROENTEROLOGY CONSULT TO CARDIOLOGY (GENERAL CONSULT) Treatments: cardiac meds Procedures: Right total hip arthroplasty. Operations: none Complications: None Medications: Current Discharge Medication List START taking these medications sucralfate 1 GM Tabs Commonly known as: CARAFATE Dose: 1,000 mg Quantity: 120 Tab Refills: 0 Take 1 Tab by mouth EVERY SIX HOURS. CONTINUE these medications which have changed carvedilol 25 MG Tabs Commonly known as: COREG Dose: 25 mg What changed: medication strength See the new instructions. Quantity: 60 Tab Refills: 0 Take 1 Tab by mouth TWO TIMES DAILY WITH MEALS. CONTINUE these medications which have NOT CHANGED acetaminophen 500 MG Tabs Commonly known as: TYLENOL Dose: 1,000 mg Quantity: 60 Tab Refills: 0 Take 2 Tabs by mouth EVERY EIGHT HOURS. Aspirin 325 MG Tbec Dose: 325 mg Quantity: 60 Tab Refills: 0 Take 1 Tab by mouth TWICE DAILY. B-12 1000 MCG Caps Dose: 2,000 mcg Refills: 0 Take 2,000 mcg by mouth DAILY. CALCIUM 1200+D3 PO Dose: 1 Tab Refills: 0 Take 1 Tab by mouth DAILY. Cod Liver Oil 1000 MG Caps Dose: 1 Cap Refills: 0 Take 1 Cap by mouth EVERY MORNING. cyclobenzaprine 5 MG Tabs Commonly known as: FLEXERIL Dose: 5 mg Quantity: 42 Tab Refills: 0 Take 1 Tab by mouth THREE TIMES DAILY NEEDED (muscle spasms). Ferrous Gluconate 324 (38 Fe) MG Tabs Dose: 324 mg Quantity: 30 Tab Refills: 0 Take 324 mg by mouth DAILY. Garlic 1000 MG Caps Dose: 1 Cap Refills: 0 Take 1 Cap by mouth EVERY MORNING. ICAPS Caps Refills: 0 Take by mouth DAILY. Tyler-3 Fatty Acids 1000 MG Caps Dose: 1 Cap Refills: 0 Take 1 Cap by mouth EVERY MORNING. pantoprazole 40 MG Tbec Commonly known as: PROTONIX Quantity: 180 Tab Refills: 3 TAKE 1 TABLET BY MOUTH TWICE A DAY PATADAY 0.2 % Soln Generic drug: Olopatadine HCl Refills: 0 Place to the external eye DAILY. PROBIOTIC FORMULA PO Dose: 1 Cap Refills: 0 Take 1 Cap by mouth. Red Yeast Rice 600 MG Caps Dose: 2 Cap Refills: 0 Take 2 Caps by mouth TWICE DAILY. RESTASIS 0.05 % Emul Generic drug: cyclosporin Refills: [address] Place to the external eye TWICE DAILY. sennosides-docusate sodium 8.6-50 MG Tabs Commonly known as: SENOKOT-S, SENNA S Dose: 2 Tab Quantity: 60 Tab Refills: 0 Take 2 Tabs by mouth TWO TIMES DAILY NEEDED (constipation). tramadol 50 MG Tabs Commonly known as: ULTRAM Dose: 50 mg Quantity: 28 Tab Refills: 0 Take 1 Tab by mouth EVERY SIX HOURS NEEDED (post op pain). Max Daily Amount: 200 mg. Valsartan-hydroCHLOROthiazide 160-12.5 MG Tabs Quantity: 90 Tab Refills: 1 TAKE 1 TABLET BY MOUTH EVERY DAY Stop taking these previous medications OXYcodone 5 MG Tabs Commonly known as: OXY-IR,OXY-FAST spironolactone 25 MG Tabs Commonly known as: ALDACTONE Where to Get Your Medications Information about where to get these medications is not yet available Ask your nurse or doctor about these medications carvedilol 25 MG Tabs sucralfate 1 GM Tabs Oxygen or Positive Pressure Devices: none Patient Instructions: 1) follow up with PCP in 1 week 2) follow up with Cardiology clinic in 2 weeks and you will need a Holter monitor for heart 3) follow up with Orthopedics clinic in 2 weeks. Activity: touch down weight bearing on right. Wound Care: Keep wound clean and dry, Reinforce dressing as needed and Observe for redness, swellingor drainage Follow-Up: PCP in 1 week, Orthopedics clinic in 2 weeks, Cardiology clinic in 2 weeks. Diet: Heart healthy Diet No orders of the defined types were placed in this encounter. Total duration of time spent: 40 minutes. Provider Signature: Heather Palmer MD documented in this encounter Discharge Instructions InstructionsRadha Palma RN - 03/15/2019Provider's Instructions Reason for Admission or Diagnosis:Closed fracture of right femur (HCC) Goals:Patient to maintain functional ability. . Activity/Restrictions: TOUCH DOWN WEIGHT BEARING for right/ Skin/Wound Care: Keep wound clean and dry, Reinforce dressing as needed and Observe for redness, swelling or drainage Discharge Diet: Heart healthy Diet Special Instructions: 1) follow up with PCP in 1 week 2) follow up with Cardiology clinic in 2 weeks and you will need a Holter monitor for heart 3) follow up with Orthopedics clinic in 2 weeks. Discharge Provider: Heather Palmer MD Attending: Heather Palmer MD Time: 09:52 Nurse's Instructions Problems to report to your Physician: Excessive pain or discomfort Fever > 100.5 degrees Difficulty breathing Increase or smell in wound drainage Skin/Wound Care: Skin intact on discharge: Keep dressing clean and dry and May shower Medical Equipment/Supplies to help you at home: walker Help arranged for you Home Health/Receiving Agency: [facility] [place] [phone] Total Joint Discharge Instructions -Ice only to the joint after each therapy and as needed for comfort -No heat to the joint -Expect bruising and swelling to increase after your discharge, swelling may remain for -up to one month after your surgery, bruising can extend the length of the entire leg -White stockings on during the day, off at night until follow up -Remind Dentist and foot doctor PRIOR to your appointment that you have had a total joint replacement -Read your Joint Camp book -Joint Camp phone numbers [phone] on weekends call [phone] and ask for the Orthopedic doctor conservation biology professor for questions and concerns -Seek medical attention for any other issues -No driving while taking pain medication and are cleared by your doctor. documented in this encounter Progress Notes Heather Palmer MD - 03/14/2019 3:46 PM EDT [facility] [address]. [id number] Hospitalist Progress Note Date of Service: 03/14/2019 Patient: Mireille Cordova #: [id number] Attending: HEATHER PALMER MD ,MD Subjective: she denied any complains this time, feeling better today, she is refusing for EGD. And states that she is not bleeding any more, and would not want any EGD. Physical: Objective: Blood pressure 151/61, pulse 86, temperature 98.3 F (36.8 C) , temperature source Temporal, resp. rate 18, height 5' 2" (1.575 m), weight 181 lb 11.2 oz (82.4 kg), SpO2 95 %, not currently . General: healthy, alert, no distress Lungs: clear to auscultation Heart: regular rate and rhythm Abd: Abdomen soft, non-tender. BS normal. Ext: Extremities normal. No deformities, edema, Neuro: Mental status:awake, alert and oriented Plan/Impression: IGNACIA on CKD stage3: resolved. - Hold HCTZ, aldactone,. Avoid nephrotoxins.resumed Valsartan/ - US kidneys done, no obstruction. Pneumonia; finishing course of antibiotics. Right total hip arthroplasty revision: done by Orthopedics, they are following her, she will need outpatient follow up with them for 2 weeks, and DVT px for 2 weeks. Acute blood loss anemia; as per Ortho note, she is refusing for blood products. monitor, may be secondary to Surgery vs GI loss, GI help is appreciated, positive stool occult. Monitor. Started Iron supplements. Was scheduled for EGD yesterday but it got cancelled, monitor. Multiple PVCs: asymptomatic, electrolytes are OK, TSH low, FT4 normal getting Echo. Cardiology consulted, recommended to continue with Coreg and outpatient Holter., c/wCoreg to 25 mg BID. HTN: - BP controlled.restarted Valsartan. - Holding HCTZ, Aldactone,. C/w Coreg for now and monitor BP. Diastolic HF: - Appears dry to Euvolemic, holding diuretics, monitor daily weight. Constipation: - Pt is on Bowel regimen. DVT px. Aspirin 325 mg BID as per Orth recommendations. PT/OT: STR, Disposition: tomorrow to STR. Author: Heather Palmer MD Heather Medel MD - 03/13/2019 1:01 PM EDT [facility] [address]. [id number] Hospitalist Progress Note Date of Service: 03/13/2019 Patient: Mireille Cordova #: [id number] Attending: HEATHER PALMER MD , Subjective: she denied any complains this time, feeling better today, She went for EGD later in the day and procedure was cancelled as she had asymptomatic multiple PVCs., her vitals were stable. Physical: Objective: Blood pressure 131/60, pulse 66, temperature 98.1 F (36.7 C) , temperature source Temporal, resp. rate 20, height 5' 2" (1.575 m), weight 181 lb 11.2 oz (82.4 kg), SpO2 90 %, not currently . General: healthy, alert, no distress Lungs: clear to auscultation Heart: regular rate and rhythm Abd: Abdomen soft, non-tender. BS normal. Ext: Extremities normal. No deformities, edema, Neuro: Mental status:awake, alert and oriented Plan/Impression: IGNACIA on CKD stage3: resolved. - Hold HCTZ, aldactone, valsartan. Follow BMP. Avoid nephrotoxins. - US kidneys done, no obstruction. Pneumonia; WBC count is getting better, CXRAY confirmed infiltrates, c/ wCeftriaxone and Azithromycin, will transition to PO Augmentin tomorrow. Right total hip arthroplasty revision: done by Orthopedics, they are following her, she will need outpatient follow up with them for 2 weeks, and DVT px for 2 weeks. Acute blood loss anemia; as per Ortho note, she is refusing for blood products. monitor, may be secondary to Surgery vs GI loss, GI help is appreciated, positive stool occult. Monitor. Started Iron supplements. Was scheduled for EGD today but it got cancelled, monitor. Multiple PVCs: asymptomatic, electrolytes are OK, TSH low, getting FT4 tomorrow , getting Echo and Cardiology consult, monitor on telemetry, increased Coreg to 25 mg BID. HTN: - BP controlled. - Holding HCTZ, Aldactone, valsartan. C/w Coreg for now and monitor BP. Diastolic HF: - Appears dry to Euvolemic, holding diuretics, monitor daily weight. Constipation: - Pt is on Bowel regimen. DVT px. Aspirin 325 mg BID as per Orth recommendations. PT/OT: STR, Disposition: Await work up. Time spent 35 minutes Author: Heather Palmer MD Jamel Hurst MD - 03/13/2019 10:28 AM EDT IP Gastroenterology Progress Note [address] [place] [address] ADMISSION DATE: 03/06/19 LOCATION: [facility] ATTENDING: HEATHER PALMER MD ,MD Interval Hx No complaints, no hematemesis, no nausea or vomiting Current Facility-Administered Medications: acetaminophen (TYLENOL) tablet 1,000 mg, 1,000 mg, Oral, Q8H, Marty Murray PA-C, 1,000 mg at 03/12/192055 aspirin (ECOTRIN) enteric coated tablet 325 mg, 325 mg, Oral, BID, Marty Murray PA-C, 325 mg at 03/12/192055 azithromycin (ZITHROMAX) IV mixture 500 mg, 500 mg, Intravenous, Q24H, Heather Palmer MD, 500mg at 03/12/19 165 bisacodyl (DULCOLAX) enteric coated tablet 10 mg, 10 mg, Oral, DAILY PRN , Marty Murray PA-C bisacodyl (DULCOLAX) suppository 10 mg, 10 mg, Rectal, DAILY PRN, Marty Murray PA-C calcium carbonate (TUMS) chewable tablet 500 mg, 500 mg, Oral, Q8H PRN, Marty Murray PA-C carvedilol (COREG) tablet 12.5 mg, 12.5 mg, Oral, BID WITH MEALS, Savana Levy PA, 12.5mg at 03/13/19 0758 ceftriaxone (ROCEPHIN) 1,000 mg in dextrose 5% INJ mini-bag (WHEN ACTIVATED), 1,000 mg, Intravenous, Q24H, Heather Palmer MD, 1,000 mg at 03/12/19 1624 cyclobenzaprine (FLEXERIL) tablet 5 mg, 5 mg, Oral, TID PRN, Savana Levy PA, 5 mg at 03/12/19 1217 diphenhydrAMINE (BENADRYL) injection 25 mg, 25 mg, Intravenous Push, Q4H PRN, Savana Levy PA ferrous gluconate tablet 324 mg, 324 mg, Oral, DAILY, Marty Murray PA-C, 324 mg at 03/12/19 0834 gabapentin (NEURONTIN) capsule 100 mg, 100 mg, Oral, QHS, Savana Levy PA, 100 mg at 03/12/192055 magnesium hydroxide (MILK OF MAGNESIA) 400 MG/5ML oral suspension 30 mL , 30 mL, Oral, QHS, Marty Murray PA-C, Stopped at 03/11/192119 naloxone (NARCAN) injection 0.04 mg, 0.04 mg, Intravenous, X1PRN MR, Marty Murray PA-C ondansetron (ZOFRAN ODT) soluble tablet 4 mg, 4 mg, Oral, Q8H PRN, Marty Murray PA-C ondansetron (ZOFRAN) injection 2 mg, 2 mg, Intravenous Push, Q6H PRN, Savana Levy PA ondansetron (ZOFRAN) injection 4 mg, 4 mg, Intravenous, Q8H PRN, Marty Murray PA-C OXYcodone (OXY-IR,OXY-FAST) immediate release tablet 10 mg, 10 mg, Oral , Q4H PRN, Savana Levy PA, 10 mg at 03/12/19 1403 OXYcodone (OXY-IR,OXY-FAST) immediate release tablet 5 mg, 5 mg, Oral, Q4H PRN, Savana Levy PA, 5 mg at 03/09/19 1313 OXYcodone (OXY-IR,OXY-FAST) immediate release tablet 5 mg, 5 mg, Oral, TID PRN, Marty Murray PA-C pantoprazole (PROTONIX) injection 40 mg, 40 mg, Intravenous Push, BID, Heather Palmer MD, 40 mg at 03/13/19 0919 polyethylene glycol (MIRALAX) oral pack 17 g, 17 g, Oral, BID, Savana Levy PA Stoppedat 03/12/19 2100 prochlorperazine (COMPAZINE) injection 10 mg, 10 mg, Intravenous, Q8H PRN, Marty Murray PA-C prochlorperazine (COMPAZINE) tablet 10 mg, 10 mg, Oral, Q8H PRN, Marty Murray PA-C ropivacaine 0.33%, EPINEPHrine 0.3 mg, morphine 10 mg joint mixture ( UNILATERAL), , Injection, Send to PROCEDURE AREA, Marty Murray PA-C sennosides-docusate sodium (SENOKOT-S, SENNA S) 8.6-50 mg 2 Tab, 2 Tab, Oral, BID PRN, Marty Murray PA-C, 2 Tab at 03/11/19 0805 tramadol (ULTRAM) tablet 50 mg, 50 mg, Oral, Q6H PRN, Marty Murray PA-C, 50 mg at 03/09/19 0836 tranexamic Acid (CYKLOKAPRON) IV Bolus for Traumatic Bleeding 1,000 mg, 1 g, Intravenous, Send to PROCEDURE AREA, Marty Murray PA-C BP 154/71 | Pulse 88 | Temp 99.8 F (37.7 C) (Temporal) | Resp 20 | Ht 5' 2" (1.575 m) |Wt 181 lb 11.2 oz (82.4 kg) | SpO2 93% | BMI 33.23 kg/m Physical Exam: General appearance: alert, no acute distress Eyes: conjunctivae and sclerae appear normal Throat: lips, mucosa, and tongue normal. Lungs: effort appears normal, no stridor appreciated Abdomen: soft, non-tender; bowel sounds normal; no masses, no organomegaly. Skin: no rashes appreciated, no jaundice. Neurologic: Mental status: alert, oriented, thought content appropriate, no asterixis. Extremities: no lower extremity edema, no muscle wasting appreciated. Laboratory: Recent Labs 03/11/19 0803 03/12/19 0716 03/13/19 0552 NA 131* 136 137 K 4.3 4.3 4.3 CL 97* 105 107 CO2 27 25 24 BUN 56* 40* 29* CREATININE 1.7* 1.2 1.1 CALCIUM 8.4 8.5 8.5 GLUCOSE 169* 148* 145* Recent Labs 03/11/19 0803 03/12/19 0716 03/13/19 0553 WBC 12.68* -- 12.44* HGB 7.8* 7.9* 7.5* HCT 23.3* 24.3* 24.1* Recent Labs 03/13/19 0939 INR 1.51* A/P: 84F OA, HTN, chronic diastolic heart failure, ANAHI, castellanos's esophagus, IGNACIA vs ARF, here for R totalhip arthroplasty. GI consulted for drop in hemoglobin. Low concern for overt GI bleed EGD 10/26/18 - Suspected Castellanos's esophagus, no dysplasia, reflux esophagitis Colonoscopy 05/18/2016 - Sigmoid diverticulosis. Two ascending colon tubular adenomas Plan: - 40 IV PPI BID - Intravascular resuscitation/support with IVFs and pRBCs as needed. - Serial H/H's transfuse as needed. - Discontinue all ASA, NSAIDs and Heparin products - Please correct any coagulopathy with platelets and FFP to a goal of platelets >50K and INR <1.5 - Maintain IV access with 2 large bore IVs - EGD today Don't hesitate to call with any questions or concerns. Jamel Mckenna MD PGY4 GI Fellow Associated attestation - Say Trevizo DO - 03/13/2019 6:41 [facility] Supervising Documentation Date of Service: 03/13/2019 B# [id number] I saw and evaluated the patient. Discussed with Fellow and agree with the Fellow's findings and plan as documented in the Fellow's note. Additional Comments: Anesthesia was not comfortable with proceeding with the EGD due to the patient's tachycardia and reported irregular rhythm. Discussed this with the patient on rounds on the floor,along with options of maximal medical therapy versus attempt at EGD tomorrow. She has opted for maximal medical management at this time. Recommend for this to be with twice-daily PPI therapy (Protonix 40 mg orally twice daily) and Sucralfate 1 gram orally four times per day (QAC/QHS). Continue to monitor blood counts. Patient cannot receive blood transfusions due to episcopalian reasons. GI servicewill sign off at this time. Please feel free to call us if any additional assistance is needed. Say Trevizo DO Supervising PhysicianMarty Murray PA-C - 03/13/2019 7:38 AM EDT [facility] [address] [place] [id number] Orthopedic Surgery Progress Note Patient: Mireille Seth : 1935 Date of Service: 03/13/2019 Date of admission: 03/06/19 Attending: DESIREE NICOLE MD ,MD Post op day: 5 S: 5 day status post Right total hip arthroplasty revision (Stem revision with open reduction and internal fixation of right hip periprosthetic fracture) . Patient indicates that she is doing okay thismorning. Upset she wants something to eat but going to EGD today. Her hgb did drop to 7.5, does not consent to blood products however. Complains of mild pain with good pain control with medications without adverse reactions. No problems through out the night. Positive PO intake, void, and flatus. Denies CP, SOB, ABD pain, N/V/D, dizziness, or [place]. O: Vitals: Blood pressure 155/75, pulse 110, temperature 98.7 F (37.1 C), temperature source Temporal, resp. rate 22, height 5' 2" (1.575 m), weight 181 lb 11.2 oz (82.4 kg), SpO2 98 %, not currently .. I/O: Intake/Output Summary (Last 24 hours) at 03/13/2019 0738 Last data filed at 03/12/2019 1700 Gross per 24 hour Intake 1361 ml Output Net 1361 ml Patient is lying in bed in NAD. Alert and cooperative with examination. Dressing to the right hip is clean, dry, and intact. Wound/skin benign. Muscle compartments soft. Calf is soft and non tender. There is no clinical deformity. Patient has sensation to touch to all five toes, the first webspace, the medial , lateral, dorsal andplantar aspects of the foot. Dorsiflexion and Plantar flexion strength: 5/5. Core Measures: DVT Prophylaxis: aspirin GI Prophylaxis: protonix Nutrition: regular Tracey remains in place for the following reason(s): No tracey present Labs: H/H: WBC COUNT Date Value Ref Range Status 08/17/2013 5.8 3.6 - 11.0 K/uL Final WBC Count Date Value Ref Range Status 03/13/2019 12.44 3.98 - 10.04 K/uL Final Comment: Methodology was changed 06/09/2018. Please note updated reference range and units. 03/11/2019 12.68 3.98 - 10.04 K/uL Final Hemoglobin Date Value Ref Range Status 03/13/2019 7.5 11.2 - 15.7 g/dL Final 08/17/2013 13.8 12.0 - 16.0 G/DL Final Hematocrit Date Value Ref Range Status 03/13/2019 24.1 34.1 - 44.9 % Final 08/17/2013 39.8 35.0 - 47.0 % Final Platelet Count Date Value Ref Range Status 03/13/2019 219 182 - 369 K/uL Final 08/17/2013 139 150 - 400 K/uL Final BMP: Sodium Date Value Ref Range Status 03/13/2019 137 134 - 145 mmol/L Final 08/29/2012 144 136 - 145 mmol/l Final Potassium Date Value Ref Range Status 03/13/2019 4.3 3.5 - 5.1 mmol/L Final 08/29/2012 4.3 3.5 - 5.1 mmol/l Final Chloride Date Value Ref Range Status 03/13/2019 107 98 - 107 mmol/L Final 08/29/2012 104 98 - 107 mmol/l Final CO2 Date Value Ref Range Status 03/13/2019 24 22 - 30 mmol/L Final 08/29/2012 32.0 21.0 - 32.0 mmol/l Final Glucose (Lab) Date Value Ref Range Status 08/29/2012 112 70 - 110 mg/dl Final Glucose Date Value Ref Range Status 03/13/2019 145 70 - 99 mg/dl Final BUN Date Value Ref Range Status 03/13/2019 29 7 - 17 mg/dl Final 08/29/2012 20 7 - 17 mg/dl Final Creatinine Date Value Ref Range Status 03/13/2019 1.1 0.7 - 1.2 mg/dl Final 08/29/2012 0.8 0.6 - 1.3 mg/dl Final Calcium Date Value Ref Range Status 03/13/2019 8.5 8.3 - 10.1 mg/dl Final 08/29/2012 8.8 8.3 - 10.1 mg/dl Final Imaging: Right hip prosthesis is intact and in anatomic alignment. The head of the femoral component is centered on the acetabular component. There is no lucency to suggest loosening or infection. Overall is unchanged from the prior study. A/P: 1. 5 day status post right total hip arthroplasty revision (Stem revision with open reductionand internal fixation of right hip periprosthetic fracture) ; continue with TJP; Physical therapy, occupational therapy; TTWB. 2. Acute blood loss anemia - asymptomatic; continue with iron supplementation and follow. hgb 7.5 this morning. Patient Buddhist and refuses blood products. Heme occult stool is positive,going to egd today 3. DVT prophylaxis with Aspirin; CHAPO's. 4. Pulmonary Prophylaxis: Incentive spirometer and deep breath/cough as instructed. Pneumonia was confirmed on chest XR, appears to be resolving, medicine following 5. Tracey: No tracey present. 6. Discharge planning: Consult placed to drug abuse social worker, will plan for discharge on POD #6-7 to home versus short-term rehabilitation pending PT/OT recommendation and patient progression. 7. Consult in to hospitalist for medical management 7. History of has a past medical history [...] , Sleep apnea, Statin intolerance, and Thrombocytopenia (). Marty Murray PA-C 03/13/2019 07:38 Heather Medel MD - 03[facility]12[facility]2019 2[facility] [place] [id number] Hospitalist Progress Note Date of Service: 03/12/2019 Patient: Mireille Cordova #: [id number] Attending: DESIREE NICOLE MD ,MD Subjective: she denied any complains this time, feeling better today, Physical: Objective: Blood pressure 122/48, pulse 87, temperature 97.5 F (36.4 C) , temperature source Temporal, resp. rate 20, height 5' 2" (1.575 m), weight 181 lb 11.2 oz (82.4 kg), SpO2 100 %, not currently . General: healthy, alert, no distress Lungs: clear to auscultation Heart: regular rate and rhythm Abd: Abdomen soft, non-tender. BS normal. Ext: Extremities normal. No deformities, edema, Neuro: Mental status:awake, alert and oriented Plan/Impression: IGNACIA on CKD stage3: getting better,will stop IV hydration tonight. - Hold HCTZ, aldactone, valsartan. Follow BMP. Avoid nephrotoxins. - US kidneys done, no obstruction. Pneumonia; WBC count is getting better, CXRAY confirmed infiltrates, c/ wCeftriaxone and Azithromycin, will transition to PO Augmentin tomorrow. Acute blood loss anemia; a sper Ortho note, she is refusing for blood products. monitor, may be secondary to Surgery vs GI loss, GI help is appreciated, positive stool occult. Monitor. GI is planning to do EGD tomorrow. HTN: - BP controlled. - Holding HCTZ, Aldactone, valsartan. C/w Coreg for now and monitor BP. Diastolic HF: - Appears dry to Euvolemic, holding diuretics, monitor daily weight. Constipation: - Pt is on Bowel regimen. DVT px and rest of care as per primary team. I will be following her tomorrow, feel free to call me if any questions. Author: Heather Palmer MD Fredy Rae MD - 03/12/2019 2:36 PM EDT IP Gastroenterology Progress Note [address] [place] [address] ADMISSION DATE: 03/06/19 LOCATION: [facility] ATTENDING: DESIREE NICOLE MD ,MD Interval Hx Pt feels well this morning denies any nausea or vomiting or knowledge of GIB, RN reports dark green with some black stools, Hgb 7.9 this AM No current prescriptions on file. BP 122/48 | Pulse 87 | Temp 97.5 F (36.4 C) (Temporal) | Resp 20 | Ht 5' 2" (1.575 m) |Wt 181 lb 11.2 oz (82.4 kg) | SpO2 100% | BMI 33.23 kg/m Physical Exam: General appearance: alert, no acute distress Eyes: conjunctivae and sclerae appear normal Throat: lips, mucosa, and tongue normal. Lungs: effort appears normal, no stridor appreciated Abdomen: soft, non-tender; bowel sounds normal; no masses, no organomegaly. Skin: no rashes appreciated, no jaundice. Neurologic: Mental status: alert, oriented, thought content appropriate, no asterixis. Extremities: no lower extremity edema, no muscle wasting appreciated. Laboratory: Recent Labs 03/10/19 0505 03/11/19 0803 03/12/19 0716 NA 129* 131* 136 K 4.3 4.3 4.3 CL 94* 97* 105 CO2 27 27 25 BUN 47* 56* 40* CREATININE 1.9* 1.7* 1.2 CALCIUM 8.3 8.4 8.5 GLUCOSE 158* 169* 148* Recent Labs 03/10/19 0505 03/11/19 0803 03/12/19 0716 WBC 16.88* 12.68* -- HGB 9.1* 7.8* 7.9* HCT 27.7* 23.3* 24.3* No results for input(s): INR in the last 72 hours. A/P: 84F OA, HTN, chronic diastolic heart failure, ANAHI, castellanos's esophagus, IGNACIA vs ARF, here for R totalhip arthroplasty pod 2. GI consulted for drop in hemoglobin. Low concern for overt GI bleed EGD 10/26/18 - Suspected Castellanos's esophagus, no dysplasia, reflux esophagitis Colonoscopy 05/18/2016 - Sigmoid diverticulosis. Two ascending colon tubular adenomas Plan: - 40 IV PPI BID - Intravascular resuscitation/support with IVFs and pRBCs as needed. - Serial H/H's transfuse as needed. - Discontinue all ASA, NSAIDs and Heparin products - Please correct any coagulopathy with platelets and FFP to a goal of platelets >50K and INR <1.5 - Maintain IV access with 2 large bore IVs - Keep NPO at midnight - Plan for EGD arturo Do not hesitate to call with any questions or concerns. Fredy Man MD PGY4 GI Fellow Associated attestation - Say Trevizo DO - 03/12/2019 5:[facility] Supervising MD Documentation Date of Service: 03/12/2019 B# [id number] I saw and evaluated the patient. Discussed with Fellow and agree with the Fellow's findings and plan as documented in the Fellow's note. Additional Comments: Plan for EGD tomorrow. Discussed with the patient, and she has agreed to undergo this. Say Trevizo DO Supervising Savana Salinas PA - 03/12/2019 9:23 AM EDT [facility] [place] [address] Orthopedic Surgery Progress Note Patient: Mireille Seth : 1935 Date of Service: 03/12/2019 Date of admission: 03/06/19 Attending: DESIREE NICOLE MD ,MD Post op day: 4 S: 4 day status post Right total hip arthroplasty revision (Stem revision with open reduction and internal fixation of right hip periprosthetic fracture) . Patient indicates that she is doing okay thismorning. Not feeling the best. Her hgb did drop to 7.8, does not consent to blood products however. Heme occult stool positive, awaiting GI recommendation. Complains of mild pain with good pain controlwith medications without adverse reactions. No problems through out the night. Positive PO intake, void, and flatus. Denies CP, SOB, ABD pain, N/V /D, dizziness, or [place]. O: Vitals: Blood pressure 131/45, pulse 100, temperature 98.1 F (36.7 C), temperature source Temporal, resp. rate 20, height 5' 2" (1.575 m), weight 181 lb 11.2 oz (82.4 kg), SpO2 96 %, not currently .. I/O: Intake/Output Summary (Last 24 hours) at 03/12/2019922 Last data filed at 03/12/2019 0745 Gross per 24 hour Intake 2915 ml Output 450 ml Net 2465 ml Patient is lying in bed in NAD. Alert and cooperative with examination. Dressing to the right hip is clean, dry, and intact. Wound/skin benign. Muscle compartments soft. Calf is soft and non tender. There is no clinical deformity. Patient has sensation to touch to all five toes, the first webspace, the medial , lateral, dorsal andplantar aspects of the foot. Dorsiflexion and Plantar flexion strength: 5/5. Core Measures: DVT Prophylaxis: aspirin GI Prophylaxis: protonix Nutrition: regular Tracey remains in place for the following reason(s): No tracey present Labs: H/H: WBC COUNT Date Value Ref Range Status 08/17/2013 5.8 3.6 - 11.0 K/uL Final WBC Count Date Value Ref Range Status 03/11/2019 12.68 3.98 - 10.04 K/uL Final Hemoglobin Date Value Ref Range Status 03/12/2019 7.9 11.2 - 15.7 g/dL Final Comment: Methodology was changed 06/09/2018. Please note updated reference range and units. 08/17/2013 13.8 12.0 - 16.0 G/DL Final Hematocrit Date Value Ref Range Status 03/12/2019 24.3 34.1 - 44.9 % Final 08/17/2013 39.8 35.0 - 47.0 % Final Platelet Count Date Value Ref Range Status 03/11/2019 159 182 - 369 K/uL Final 08/17/2013 139 150 - 400 K/uL Final BMP: Sodium Date Value Ref Range Status 03/12/2019 136 134 - 145 mmol/L Final 08/29/2012 144 136 - 145 mmol/l Final Potassium Date Value Ref Range Status 03/12/2019 4.3 3.5 - 5.1 mmol/L Final 08/29/2012 4.3 3.5 - 5.1 mmol/l Final Chloride Date Value Ref Range Status 03/12/2019 105 98 - 107 mmol/L Final 08/29/2012 104 98 - 107 mmol/l Final CO2 Date Value Ref Range Status 03/12/2019 25 22 - 30 mmol/L Final 08/29/2012 32.0 21.0 - 32.0 mmol/l Final Glucose (Lab) Date Value Ref Range Status 08/29/2012 112 70 - 110 mg/dl Final Glucose Date Value Ref Range Status 03/12/2019 148 70 - 99 mg/dl Final BUN Date Value Ref Range Status 03/12/2019 40 7 - 17 mg/dl Final 08/29/2012 20 7 - 17 mg/dl Final Creatinine Date Value Ref Range Status 03/12/2019 1.2 0.7 - 1.2 mg/dl Final 08/29/2012 0.8 0.6 - 1.3 mg/dl Final Calcium Date Value Ref Range Status 03/12/2019 8.5 8.3 - 10.1 mg/dl Final 08/29/2012 8.8 8.3 - 10.1 mg/dl Final Imaging: Right hip prosthesis is intact and in anatomic alignment. The head of the femoral component is centered on the acetabular component. There is no lucency to suggest loosening or infection. Overall is unchanged from the prior study. A/P: 1. 4 day status post right total hip arthroplasty revision (Stem revision with open reductionand internal fixation of right hip periprosthetic fracture) ; continue with TJP; Physical therapy, occupational therapy; TTWB. 2. Acute blood loss anemia - asymptomatic; continue with iron supplementation and follow. hgb 7.8 this morning. Patient Buddhist and refuses blood products. Heme occult stool is positive,awaiting GI recommendation. 3. DVT prophylaxis with Aspirin; CHAPO's. 4. Pulmonary Prophylaxis: Incentive spirometer and deep breath/cough as instructed. Pneumonia was confirmed on chest XR, appears to be resolving, medicine following 5. Tracey: No tracey present. 6. Discharge planning: Consult placed to drug abuse social worker, will plan for discharge on POD #5 to homeversus short-term rehabilitation pending PT/OT recommendation and patient progression. 7. Consult in to hospitalist for medical management 7. History of has a past medical history [...] Sleep apnea, Statin intolerance, and Thrombocytopenia (HCC). [place] 03/12/2019 09:23 Heather Medel MD - 03/11/2019 3:17 PM EDT [facility] [place]. [id number] Hospitalist Progress Note Date of Service: 03/11/2019 Patient: Mireille Cordova #: [id number] Attending: DESIREE NICOLE MD , Subjective: she denied any complains this time, feeling better today, no cough. Eating and drinking fine, Physical: Objective: Blood pressure 132/48, pulse 89, temperature 98 F (36.7 C), temperature source Temporal, resp. rate 22, height 5' 2" (1.575 m), weight 181 lb 11.2 oz (82.4 kg), SpO2 99 %, not currently . General: healthy, alert, no distress Lungs: clear to auscultation Heart: regular rate and rhythm Abd: Abdomen soft, non-tender. BS normal. Ext: Extremities normal. No deformities, edema, Neuro: Mental status:awake, alert and oriented Plan/Impression: IGNACIA on CKD stage3: getting better,c/w IV hydration. - Hold HCTZ, aldactone, valsartan. Follow BMP. Avoid nephrotoxins. - US kidneys done, no obstruction. Pneumonia; WBC count is getting better, CXRAY confirmed infiltrates, started Ceftriaxone and Azithromycin, getting urine antigens, and sputum sample. Acute blood loss anemia; monitor, may be secondary to Surgery vs GI loss, GI help is appreciated, positive stool occult. Monitor. Will follow up with GI. HTN: - BP controlled. - Holding HCTZ, Aldactone, valsartan. C/w Coreg for now and monitor BP. Diastolic HF: - Appears dry to Euvolemic, holding diuretics, monitor daily weight. Constipation: - Pt is on Bowel regimen. DVT px and rest of care as per primary team. I will be following her tomorrow, feel free to call me if any questions. Author: Heather Palmer MD INTSavana Levy PA - 03/11/2019 8:37 AM EDT [facility] [place] [id number] Orthopedic Surgery Progress Note Patient: Mireille Seth : 1935 Date of Service: 03/11/2019 Date of admission: 03/06/19 Attending: DESIREE NICOLE MD ,MD Post op day: 3 S: 3 day status post Right total hip arthroplasty revision (Stem revision with open reduction and internal fixation of right hip periprosthetic fracture) . Patient indicates that she is doing okay thismorning. Complains of mild to moderate pain with good pain control with medications without adverse reactions. No problems through out the night. Positive PO intake, void, and flatus. Denies CP, SOB,ABD pain, N/V/D, dizziness, or [place]. O: Vitals: Blood pressure 129/50, pulse 91, temperature 98.2 F (36.8 C), temperature source Temporal, resp. rate 18, height 5' 2" (1.575 m), weight 181 lb 11.2 oz (82.4 kg), SpO2 96 %, not currently .. I/O: Intake/Output Summary (Last 24 hours) at 03/11/2019 0837 Last data filed at 03/11/2019 0800 Gross per 24 hour Intake 430 ml Output 550 ml Net -120 ml Patient is lying in bed in NAD. Alert and cooperative with examination. Dressing to the right hip is clean, dry, and intact. Wound/skin benign. Muscle compartments soft. Calf is soft and non tender. There is no clinical deformity. Patient has sensation to touch to all five toes, the first webspace, the medial , lateral, dorsal andplantar aspects of the foot. Dorsiflexion and Plantar flexion strength: 5/5. Core Measures: DVT Prophylaxis: aspirin GI Prophylaxis: protonix Nutrition: regular Tracey remains in place for the following reason(s): No tracey present Labs: H/H: WBC COUNT Date Value Ref Range Status 08/17/2013 5.8 3.6 - 11.0 K/uL Final WBC Count Date Value Ref Range Status 03/10/2019 16.88 3.98 - 10.04 K/uL Final Hemoglobin Date Value Ref Range Status 03/10/2019 9.1 11.2 - 15.7 g/dL Final 08/17/2013 13.8 12.0 - 16.0 G/DL Final Hematocrit Date Value Ref Range Status 03/10/2019 27.7 34.1 - 44.9 % Final 08/17/2013 39.8 35.0 - 47.0 % Final Platelet Count Date Value Ref Range Status 03/10/2019 172 182 - 369 K/uL Final Comment: Methodology was changed 06/09/2018. Please note updated reference range and units. 08/17/2013 139 150 - 400 K/uL Final BMP: Sodium Date Value Ref Range Status 03/10/2019 129 134 - 145 mmol/L Final 08/29/2012 144 136 - 145 mmol/l Final Potassium Date Value Ref Range Status 03/10/2019 4.3 3.5 - 5.1 mmol/L Final 08/29/2012 4.3 3.5 - 5.1 mmol/l Final Chloride Date Value Ref Range Status 03/10/2019 94 98 - 107 mmol/L Final 08/29/2012 104 98 - 107 mmol/l Final CO2 Date Value Ref Range Status 03/10/2019 27 22 - 30 mmol/L Final 08/29/2012 32.0 21.0 - 32.0 mmol/l Final Glucose (Lab) Date Value Ref Range Status 08/29/2012 112 70 - 110 mg/dl Final Glucose Date Value Ref Range Status 03/10/2019 158 70 - 99 mg/dl Final BUN Date Value Ref Range Status 03/10/2019 47 7 - 17 mg/dl Final 08/29/2012 20 7 - 17 mg/dl Final Creatinine Date Value Ref Range Status 03/10/2019 1.9 0.7 - 1.2 mg/dl Final 08/29/2012 0.8 0.6 - 1.3 mg/dl Final Calcium Date Value Ref Range Status 03/10/2019 8.3 8.3 - 10.1 mg/dl Final 08/29/2012 8.8 8.3 - 10.1 mg/dl Final Imaging: Right hip prosthesis is intact and in anatomic alignment. The head of the femoral component is centered on the acetabular component. There is no lucency to suggest loosening or infection. Overall is unchanged from the prior study. A/P: 1. 3 day status post right total hip arthroplasty revision (Stem revision with open reduction and internal fixation of right hip periprosthetic fracture) ; continue with TJP; Physical therapy, occupational therapy; TTWB. 2. Acute blood loss anemia - asymptomatic; continue with iron supplementation and follow. hgb 7.8 this morning. Patient Buddhist and refuses blood products. 3. DVT prophylaxis with Aspirin; CHAPO's. 4. Pulmonary Prophylaxis: Incentive spirometer and deep breath/cough as instructed. Will get cxr today for productive cough 5. Tracey: No tracey present. 6. Discharge planning: Consult placed to drug abuse social worker, will plan for discharge on POD #5 to homeversus short-term rehabilitation pending PT/OT recommendation and patient progression. 7. Consult in to hospitalist for medical management 7. History of has a past medical history [...] , Sleep apnea, Statin intolerance, and Thrombocytopenia (). [place] 03/11/2019 08:37 Heather Medel MD - 03/10/2019 5:26 PM EDT [facility] [place]. [id number] Hospitalist Progress Note Date of Service: 03/10/2019 Patient: Mireille Seth Art #: [id number] Attending: DESIREE NICOLE MD ,MD Subjective: she denied any complains this time, Last night she had one episode of vomiting, reportedas coffee ground. She also was coughing thid morning as per ortho PA. No fever, chills. Physical: Objective: Blood pressure (!) 112/39, pulse 100, temperature 98.6 F (37 C), temperature source Temporal, resp. rate 20, height 5' 2" (1.575 m), weight 181 lb 11.2 oz (82.4 kg), SpO2 93 %, not currently . General: healthy, alert, no distress Lungs: clear to auscultation Heart: regular rate and rhythm Abd: Abdomen soft, non-tender. BS normal. Ext: Extremities normal. No deformities, edema, Neuro: Mental status:awake, alert and oriented Plan/Impression: IGNACIA on CKD stage3: getting better,started IV hydration. - Hold HCTZ, aldactone, valsartan. Follow BMP. Avoid nephrotoxins. - US kidneys done, no obstruction. Pneumonia; WBC count is up, had cough this morning, CXRAY confirmed infiltrates , started Ceftriaxoneand Azithromycin, getting urine antigens, and sputum sample. Acute blood loss anemia; monitor, may be secondary to Surgery vs GI loss, GI help is appreciated, getting stool occult. Monitor. HTN: - BP controlled. - Holding HCTZ, Aldactone, valsartan. C/w Coreg for now and monitor BP. Diastolic HF: - Appears dry to Euvolemic, holding diuretics, monitor daily weight. Constipation: - Pt is on Bowel regimen. DVT px and rest of care as per primary team. I called Orthopedics [place] Vizcarra and informed him that I placed all those orders. I will be following her tomorrow, feel free to call me if any questions. Author: Heather Palmer MD Marty Gorman PA-C - 03/10/2019 7:26 AM EDT [facility] [place] [id number] Orthopedic Surgery Progress Note Patient: Mireille Seth : 1935 Date of Service: 03/10/2019 Date of admission: 03/06/19 Attending: DIEGO BENITEZ MD ,MD Post op day: 2 S: 2 day status post Right total hip arthroplasty revision (Stem revision with open reduction and internal fixation of right hip periprosthetic fracture) . Patient indicates that she is doing well thismorning. Complains of mild to moderate pain with good pain control with medications without adverse reactions. No problems through out the night. Positive PO intake, void, and flatus. Denies CP, SOB,ABD pain, N/V/D, dizziness, or [place]. O: Vitals: Blood pressure 154/62, pulse (!) 114, temperature 98.5 F (36.9 C ), temperature source Temporal, resp. rate 18, height 5' 2" (1.575 m), weight 181 lb 11.2 oz (82.4 kg), SpO2 92 %, not currently .. I/O: Intake/Output Summary (Last 24 hours) at 03/10/2019 0726 Last data filed at 03/10/2019 0530 Gross per 24 hour Intake 825 ml Output 650 ml Net 175 ml Patient is lying in bed in NAD. Alert and cooperative with examination. Dressing to the right hip is clean, dry, and intact. Wound/skin benign. Muscle compartments soft. Calf is soft and non tender. There is no clinical deformity. Patient has sensation to touch to all five toes, the first webspace, the medial , lateral, dorsal andplantar aspects of the foot. Dorsiflexion and Plantar flexion strength: 5/5. Core Measures: DVT Prophylaxis: aspirin GI Prophylaxis: protonix Nutrition: regular Tracey remains in place for the following reason(s): No tracey present Labs: H/H: WBC COUNT Date Value Ref Range Status 08/17/2013 5.8 3.6 - 11.0 K/uL Final WBC Count Date Value Ref Range Status 03/10/2019 16.88 3.98 - 10.04 K/uL Final Hemoglobin Date Value Ref Range Status 03/10/2019 9.1 11.2 - 15.7 g/dL Final 08/17/2013 13.8 12.0 - 16.0 G/DL Final Hematocrit Date Value Ref Range Status 03/10/2019 27.7 34.1 - 44.9 % Final 08/17/2013 39.8 35.0 - 47.0 % Final Platelet Count Date Value Ref Range Status 03/10/2019 228 182 - 369 K/uL Final 08/17/2013 139 150 - 400 K/uL Final BMP: Sodium Date Value Ref Range Status 03/10/2019 129 134 - 145 mmol/L Final 08/29/2012 144 136 - 145 mmol/l Final Potassium Date Value Ref Range Status 03/10/2019 4.3 3.5 - 5.1 mmol/L Final 08/29/2012 4.3 3.5 - 5.1 mmol/l Final Chloride Date Value Ref Range Status 03/10/2019 94 98 - 107 mmol/L Final 08/29/2012 104 98 - 107 mmol/l Final CO2 Date Value Ref Range Status 03/10/2019 27 22 - 30 mmol/L Final 08/29/2012 32.0 21.0 - 32.0 mmol/l Final Glucose (Lab) Date Value Ref Range Status 08/29/2012 112 70 - 110 mg/dl Final Glucose Date Value Ref Range Status 03/10/2019 158 70 - 99 mg/dl Final BUN Date Value Ref Range Status 03/10/2019 47 7 - 17 mg/dl Final 08/29/2012 20 7 - 17 mg/dl Final Creatinine Date Value Ref Range Status 03/10/2019 1.9 0.7 - 1.2 mg/dl Final 08/29/2012 0.8 0.6 - 1.3 mg/dl Final Calcium Date Value Ref Range Status 03/10/2019 8.3 8.3 - 10.1 mg/dl Final 08/29/2012 8.8 8.3 - 10.1 mg/dl Final Imaging: Right hip prosthesis is intact and in anatomic alignment. The head of the femoral component is centered on the acetabular component. There is no lucency to suggest loosening or infection. Overall is unchanged from the prior study. A/P: 1. 2 day status post right total hip arthroplasty revision (Stem revision with open reduction and internal fixation of right hip periprosthetic fracture) ; continue with TJP; Physical therapy, occupational therapy; TTWB. 2. Acute blood loss anemia - asymptomatic; continue with iron supplementation and follow. 3. DVT prophylaxis with Aspirin; CHAPO's. 4. Pulmonary Prophylaxis: Incentive spirometer and deep breath/cough as instructed. Will get cxr today for productive cough 5. Tracey: No tracey present. 6. Discharge planning: Consult placed to drug abuse social worker, will plan for discharge on POD #3 to homeversus short-term rehabilitation pending PT/OT recommendation and patient progression. 7. Consult in to hospitalist for medical management 7. History of has a past medical history [...] , Sleep apnea, Statin intolerance, and Thrombocytopenia (). Marty Murray PA-C 03/10/2019 07:26 Lisette Quijano PA-C - 03/09/2019 10:09 AM EDT [facility] [address] [id number] Orthopedic Surgery Progress Note Patient: Mireille Seth : 1935 Date of Service: 03/09/2019 Date of admission: 03/06/19 Attending: DIEGO BENITEZ MD ,MD Post op day: 1 S: 1 day status post Right total hip arthroplasty revision (Stem revision with open reduction and internal fixation of right hip periprosthetic fracture) . Patient indicates that she is doing well thismorning. Complains of mild to moderate pain with good pain control with medications without adverse reactions. No problems through out the night. Positive PO intake, void, and flatus. Denies CP, SOB,ABD pain, N/V/D, dizziness, or [place]. O: Vitals: Blood pressure 95/72, pulse 71, temperature 97.1 F (36.2 C), temperature source Temporal, resp. rate 18, height 5' 2" (1.575 m), weight 181 lb 11.2 oz (82.4 kg), SpO2 97 %, not currently .. I/O: Intake/Output Summary (Last 24 hours) at 03/09/2019 1010 Last data filed at 03/09/2019 0930 Gross per 24 hour Intake 1600 ml Output 200 ml Net 1400 ml Patient is lying in bed in NAD. Alert and cooperative with examination. Dressing to the right hip is clean, dry, and intact. Wound/skin benign. Muscle compartments soft. Calf is soft and non tender. There is no clinical deformity. Patient has sensation to touch to all five toes, the first webspace, the medial , lateral, dorsal andplantar aspects of the foot. Dorsiflexion and Plantar flexion strength: 5/5. Core Measures: DVT Prophylaxis: aspirin GI Prophylaxis: protonix Nutrition: regular Tracey remains in place for the following reason(s): No tracey present Labs: H/H: WBC COUNT Date Value Ref Range Status 08/17/2013 5.8 3.6 - 11.0 K/uL Final WBC Count Date Value Ref Range Status 02/09/2019 6.28 3.98 - 10.04 K/uL Final Hemoglobin Date Value Ref Range Status 03/09/2019 10.8 11.2 - 15.7 g/dL Final Comment: Methodology was changed 06/09/2018. Please note updated reference range and units. 08/17/2013 13.8 12.0 - 16.0 G/DL Final Hematocrit Date Value Ref Range Status 03/09/2019 33.7 34.1 - 44.9 % Final 08/17/2013 39.8 35.0 - 47.0 % Final Platelet Count Date Value Ref Range Status 02/23/2019 127 182 - 369 K/uL Final Comment: Methodology was changed 06/09/2018. Please note updated reference range and units. 08/17/2013 139 150 - 400 K/uL Final BMP: Sodium Date Value Ref Range Status 03/09/2019 137 134 - 145 mmol/L Final 08/29/2012 144 136 - 145 mmol/l Final Potassium Date Value Ref Range Status 03/09/2019 4.6 3.5 - 5.1 mmol/L Final 08/29/2012 4.3 3.5 - 5.1 mmol/l Final Chloride Date Value Ref Range Status 03/09/2019 101 98 - 107 mmol/L Final 08/29/2012 104 98 - 107 mmol/l Final CO2 Date Value Ref Range Status 03/09/2019 28 22 - 30 mmol/L Final 08/29/2012 32.0 21.0 - 32.0 mmol/l Final Glucose (Lab) Date Value Ref Range Status 08/29/2012 112 70 - 110 mg/dl Final Glucose Date Value Ref Range Status 03/09/2019 178 70 - 99 mg/dl Final BUN Date Value Ref Range Status 03/09/2019 30 7 - 17 mg/dl Final 08/29/2012 20 7 - 17 mg/dl Final Creatinine Date Value Ref Range Status 03/09/2019 2.1 0.7 - 1.2 mg/dl Final 08/29/2012 0.8 0.6 - 1.3 mg/dl Final Calcium Date Value Ref Range Status 03/09/2019 9.2 8.3 - 10.1 mg/dl Final 08/29/2012 8.8 8.3 - 10.1 mg/dl Final Imaging: Right hip prosthesis is intact and in anatomic alignment. The head of the femoral component is centered on the acetabular component. There is no lucency to suggest loosening or infection. Overall is unchanged from the prior study. A/P: 1. 1 day status post right total hip arthroplasty revision (Stem revision with open reduction and internal fixation of right hip periprosthetic fracture) ; continue with TJP; Physical therapy, occupational therapy; TTWB. 2. Acute blood loss anemia - asymptomatic; continue with iron supplementation and follow. 3. DVT prophylaxis with Aspirin; CHAPO's. 4. Pulmonary Prophylaxis: Incentive spirometer and deep breath/cough as instructed. 5. Tracey: No tracey present. 6. Discharge planning: Consult placed to drug abuse social worker, will plan for discharge on POD #3 to homeversus short-term rehabilitation pending PT/OT recommendation and patient progression. 7. STAT consult placed to hospitalist for postoperative medical management. 7. History of has a past medical history [...] , Sleep apnea, Statin intolerance, and Thrombocytopenia (). Lisette August PA-C 03/09/2019 10:10 documented in this encounter Plan of Treatment Date Type Specialty Care Team Description 03/28/2019 Orders Only Cardiology 03/28/2019 Office Visit Cardiology Janet Dotson, STAFF ATTORNEY [address] [address] 03/29/2019 Office Visit Orthopedics Marty Murray PA-C [address] [address] [phone] 04/10/2019 Office Visit Family Practice Major Felix MD [address] [place] [address] [phone] Name Type Priority Associated Diagnoses Date/Time INPT/ED 12 LEAD EKG EKG Routine 03/13/2019 1:11 PM EDT Name Type Priority Associated Diagnoses Order Schedule UGI/EGD IN GI Diagnostic/Surgical Routine TOMORROW - GENERAL SUITE Procedures USE for 1 Occurrences starting 03/13/2019 until 03/13/2019 Health Maintenance Due Date Last Done Comments [...] Educational Resources: National Heart, Lung, & Blood [facility] http://nhlbi.nih.gov/hbp/index.html The DASH Diet Eating Plan http://www.nhlbi.nih.gov/health/health-topics/ topics/dash/ Academy of Nutrition & DIetetics http://eatright.org National Smoking Cessation Site http://smokefree.gov Blood Pressure < Blood Pressure Essential 155/75 (03/15/2019 Major Cooper, 140/90 hypertension 8:30 AM EDT) Note: Hypertension [...] Educational Resources. record my blood pressure results. [employer] is safe and secure way for you [...] Educational Resources: National Heart, Lung, & Blood [facility] http://nhlbi.nih.gov/hbp/index.html The DASH Diet Eating Plan http://www.nhlbi.nih.gov/health/health-topics/ topics/dash/ Academy of Nutrition & DIetetics http://eatright.org National Smoking Cessation Site http://smokefree.gov Blood Pressure < 150/90 Blood Pressure 155/75 (03/15/2019 8:30 No Major Felix MD AM EDT) Note: [...] Diabetes 6.4 (02/09/2019 8:53 AM No Major Felix MD EDT) Note: This is an individualized treatment (diabetes control, HgbA1C) goal for Mireille Seth: Displayed above is your progress towards your HgbA1C goal. Your goal is shown above (on the left); your most recent HgbA1C is shown on the right. Note that lower numbers are better. Weight loss vs. 18 mo Lifestyle 13.3 (03/06/2019 9:00 PM No Major Felix MD max (lbs) >= 10 EDT) Note: [...] of this encounter Implants Implanted Type Area Comb Setter Device Shelf Model / Identifier Expiration Serial / Lot Date Ringloc + Acetabular Shell Size 50 - [id number] Right: [employer] [id number] / Implanted: Qty: 1 on 02/20/2019 by Desiree Nicole MD at [facility] Hip / [id number] Dual Mobility Acetabular Liner 40 D - [id number] Right: [employer] G[employer] 06/09/2027 [id number] / Implanted: Qty: 1 on 02/20/2019 by Desiree Nicole MD at [facility] Hip ASSOC / [id number] Taperloc Complete Fem Stem - So Sz 9 - [id number] Right: [employer] 10/14/2028 [id number] / Implanted: Qty: 1 on 02/20/2019 by Desiree Nicole MD at [facility] Hip / [id number] Ceramic Option Taper Sleeve Size Std - [id number] Right: [employer] 05/03/2028 [id number] / Implanted: Qty: 1 on 02/20/2019 by Desiree Nicole MD at [facility] Hip / [id number] Biolox Ceramic Head Size 28 - [id number] Right: [employer] 2027 [id number] / Implanted: Qty: 1 on 02/20/2019 by Desiree Nicole MD at [facility] Hip / [id number] Arcomxl Active Articulation Bearing 40mm - [id number] Right: [facility] 08/17/2022 [id number] / Implanted: Qty: 1 on 02/20/2019 by Desiree Nicole MD at [facility]OC / [id number] Femoral Head,Biolox Delta Ceramic Right: [facility] 10/04/2028 00- [id number] / Implanted: Qty: 1 on 03/08/2019 by Desiree Nicole MD at [facility] / [id number] Stem , Avenir Bermudez Standard Right: [facility] 03/06/2023 [id number] / Implanted: Qty: 1 on 03/08/2019 by Desiree Nicole MD at [facility] / [id number] Cable Ready, Gtr Cable 1.8 Tv - [id number] Right: [facility] [id number] / Implanted: Qty: 1 on 03/08/2019 by Desiree Nicole MD at [facility] Hip ASSOC / [id number] Cable Ready, Gtr Cable 1.8 Tv - [id number] Right: [facility] [id number] / Implanted: Qty: 2 on 03/08/2019 by Desiree Nicole MD at [facility] / [id number] Arcomxl Active Articulation Bearing 40mm - [id number] Right: [employer] 01/20/2024 [id number] / Implanted: Qty: 1 on 03/08/2019 by Desiree Nicole MD at [facility] Hip ASSOC / [id number] documented as of this encounter Procedures Procedure Name Priority Date/Time Associated Comments Diagnosis ECHOCARDIOGRAM TTE Routine 03/14/2019 1:43 Results for PM EDT this procedure are in the results section. FREE T4 Routine 03/14/2019 6:29 Results for AM EDT this procedure are in the results section. BASIC METABOLIC PANEL Routine 03/14/2019 6:29 Results for AM EDT this procedure are in the results section. CBC NO DIFFERENTIAL Routine 03/14/2019 6:29 Results for AM EDT this procedure are in the results section. PROTHROMBIN TIME STAT 03/13/2019 9:39 Results for AM EDT this procedure are in the results section. CBC NO DIFFERENTIAL Routine 03/13/2019 5:53 Results for AM EDT this procedure are in the results section. THYROID STIMULATING Routine 03/13/2019 5:52 Results for HORMONE AM EDT this procedure are in the results section. MAGNESIUM LEVEL Routine 03/13/2019 5:52 Results for AM EDT this procedure are in the results section. BASIC METABOLIC PANEL Routine 03/13/2019 5:52 Results for AM EDT this procedure are in the results section. HEMOGLOBIN & Routine 03/12/2019 7:16 Results for HEMATOCRIT AM EDT this procedure are in the results section. BASIC METABOLIC PANEL Routine 03/12/2019 7:16 Results for AM EDT this procedure are in the results section. OCCULT BLOOD STOOL Routine 03/11/2019 12:00 Results for (LAB) PM EDT this procedure are in the results section. CBC WITH DIFFERENTIAL Routine 03/11/2019 8:03 Results for AM EDT this procedure are in the results section. BASIC METABOLIC PANEL Routine 03/11/2019 8:03 Results for AM EDT this procedure are in the results section. STREPTOCOCCUS Routine 03/11/2019 2:21 Results for PNEUMONIAE URINARY AM EDT this procedure ANTIGEN are in the results section. LEGIONELLA PNEUMOPHILA Routine 03/11/2019 2:21 Results for URINARY ANTIGEN AM EDT this procedure are in the results section. PLATELET COUNT Routine 03/10/2019 11:43 Results for PM EDT this procedure are in the results section. XR CHEST 1 VIEW STAT 03/10/2019 10:51 Results for AM EDT this procedure are in the results section. CBC WITH DIFFERENTIAL Routine 03/10/2019 5:05 Results for AM EDT this procedure are in the results section. CELLAVISION Routine 03/10/2019 5:05 Results for DIFFERENTIAL AM EDT this procedure are in the results section. BASIC METABOLIC PANEL Routine 03/10/2019 5:05 Results for AM EDT this procedure are in the results section. US RETROPERITONEAL Routine 03/09/2019 5:30 Results for COMPLETE PM EDT this procedure are in the results section. HEMOGLOBIN & Routine 03/09/2019 7:00 Results for HEMATOCRIT AM EDT this procedure are in the results section. BASIC METABOLIC PANEL Routine 03/09/2019 7:00 Results for AM EDT this procedure are in the results section. XR HIP 2 VIEWS UNILAT Routine 03/08/2019 5:17 Results for W/PELVIS RIGHT PM EDT this procedure are in the results section. XR HIP 2 VIEWS Routine 03/08/2019 3:43 Results for UNILATERAL RIGHT PM EDT this procedure are in the results section. REVISION TOTAL HIP Planned Trip to 03/08/2019 1:49 OR PM EDT XR FEMUR MIN 2 VW [place] 03/07/2019 12:49 Results for RIGHT AM EDT this procedure are in the results section. XR HIP 2 VIEWS UNILAT [place] 03/07/2019 12:47 Results for W/PELVIS RIGHT AM EDT this procedure are in the results section. CT LOWER EXTREMITY Routine 03/06/2019 11:15 FEMUR RIGHT PM EDT XR HIP 2 VIEWS UNILAT Routine 03/06/2019 11:10 W/PELVIS RIGHT PM EDT XR KNEE 4 OR MORE Routine 03/06/2019 11:05 VIEWS RIGHT (STANDARD) PM EDT [facility] SCANNED DOCUMENT 03/06/2019 12:[address] LOWER EXTREMITY HIP Routine 03/06/2019 12:10 Pain RIGHT AM EDT XR HIP 4 VIEWS MIN Routine 03/06/2019 12:05 Pain UNILAT W/PELVIS RIGHT AM EDT XR KNEE 4 OR MORE Routine 03/06/2019 12:00 Pain VIEWS RIGHT (STANDARD) AM EDT documented in this encounter Results ECHOCARDIOGRAM TTE (03/14/2019 1:43 PM EDT) ECHOCARDIOGRAM TTE ECHOCARDIOGRAPHY REPORT CARDIOLOGY DEPARTMENT Patient Name: MECCA Milian Status: Inpatient MR Number: [id number] Gender: Female : 1935 Location: [place] Age:84 year(s) Exam Date: 03/14/2019 01:43 PM Height: 62 inches Weight: 181 pounds Study Performed: 2D echocardiogram, M-Mode, Doppler , Color Doppler, ECHOCARDIOGRAM TTE. Ordering HEATHER PALMER MD Provider: Referring MAJOR FELIX MD Provider: Geological Specialist: Evan Quintero [facility] Room Number [id number] Interpreting Geovanni Monterroso MD BSA: 1.83 m^2 Interpreting BMI: 33.1 kg/m^2 Fellow Nurse Technical Quality: Adequate visualization Heart Rate (HR): 86bpm Blood Pressure (BP): 131/60mmHg INDICATION FOR STUDY: Abnormal ECG. FINAL IMPRESSION: Mild concentric LVH with mild left atrial enlargement. Normal LV systolic function with no regional wall motion abnormalities; estimated LVEF 55-60%. Mild right heart enlargement with normal RV contractility. Mild mitral and tricuspid regurgitation. Mild elevation in estimated pulmonary arterial systolic pressure (44 mmHg). No pericardial effusion. Compared to prior [facility] [place], a mild elevation in PASP is now reported. OBSERVATIONS & FINDINGS: Using 2d (3d if applicable), M-mode, Colorflow, Continuous wave doppler and Pulse wave doppler interrogation Left Ventricle Left ventricular cavity size is normal. Left ventricular wall thickness is mildly increased. No evidence of LVOT obstruction. Global systolic function is normal, with an estimated ejection fraction of 55-60%. No regional wall motion abnormalities. Left Atrium The left atrium is mildly enlarged. Indexed LA volume is 41 ml/m2. Mitral Valve Mitral valve leaflets are mildly thickened with normal mobility. No evidence of mitral stenosis or prolapse. There is mild mitral regurgitation. Aortic Valve The aortic valve is tricuspid, mildly calcified, with normal mobility. There is no aortic stenosis or regurgitation. Right Ventricle The right ventricle is mildly enlarged with preserved contractility. Right Atrium The right atrium is mildly enlarged. Tricuspid Valve The tricuspid valve appears structurally normal with normal mobility. There is mild tricuspid regurgitation. The estimated pulmonary artery systolic pressure is mildly elevated at 44 mmHg. Pulmonic Valve Pulmonic valve is not well visualized but appears flexible with normal Doppler. There is trivial pulmonic regurgitation. Pericardium / Pleura There is no pericardial effusion. Miscellaneous Visualized portions of the aorta are within normal limits. Measurements & Calculations: M-Mode / 2D Measurements Value Normal Value Normal LVIDd: 4.25 cm 3.5-5.5 AO Root: 2.97 cm 2.0-3.7 LVIDs: 2.89 cm 3.0-4.0 LA Dimension: cm 1.9-4.0 IVSd: 1.33 cm 0.7-1.1 LVOT: 2 cm 1.5-2.5 LVPWD: 1.34 cm 0.7-1.1 RV Diastolic Dimension: 3.6 cm EF Estimated: 60 % 50-70% Doppler Measurements & Calculations: Mitral: Aortic: Area (PHT): 3.48 cm^2 LVOT VTI: 30 cm Peak E-Wave: 112 cm/s Peak Velocity: 174 cm/s Peak A-Wave: 139 cm/s Peak Gradient: 12.11 mmHg Peak Gradient: 5.02 mmHg P1/2t: 63.3 msec Area (continuity): 2.37 cm^2 Mean Velocity: 123 cm/s Mean Gradient: 6.59 mmHg AV VTI: 39.8 cm E/A Ratio: 0.81 Tricuspid: Pulmonic: RVSP:44 mmHg Peak Velocity: 133 cm/s Peak TR Velocity:319 cm/s Peak Gradient: 7.08 mmHg TR Gradient:40.7044 mmHg OH ED Velocity: 63.2 cm/s TR Velocity: 319 cm/s TR Gradient: 40.7044 mmHg Estimated PASP: 43.7 mmHg Estimated RAP: 3 mmHg Estimated RVSP: 44 mmHg Left Atrium: Right Atrium: LA Dimension: 4 cm RA dimension:4.1 cm LA/Aorta: 1.35 RA area:17 cm^2 LA Area: 22 cm^2 LA Volume/Index: 75 ml /41m^2 Left Ventricle: Right Ventricle: Diastolic Dimension: 4.25 cm Septum Diastolic: 1.33 cm PW Diastolic: 1.34 cm Goldstein dimension:3.6 cm CO: 8.1 l/min RV sys pressure:43.7 mmHg FS: 32 % LVOT LVOT Diameter: 2 cm Peak Velocity: 83.8 cm/s Systolic Dimension: 2.89 cm Peak Gradient: 2.81 mmHg LVOT Diameter: 2 cm EF Estimated: 60% Mean Velocity: 63.7 cm/s CI: 4.43 l/min*m^2 Mean Gradient: 1.75 mmHg LVOT VTI: 30 cm Aorta Aortic Root: 2.97 cm Ascending Aorta: 3.09 cm LVOT Diameter: 2 cm Signature Ejection Fraction 60 % CARDIOLOGY DEPARTMENT AV AREA 2.37 cm2 CARDIOLOGY DEPARTMENT RVSP 44 mmHg CARDIOLOGY DEPARTMENT LA Volume 75 ml CARDIOLOGY DEPARTMENT LVEDd 4.25 cm CARDIOLOGY DEPARTMENT LVESd 2.89 cm CARDIOLOGY DEPARTMENT IVSd 1.33 cm CARDIOLOGY DEPARTMENT LVPWd 1.34 cm CARDIOLOGY DEPARTMENT ESV ml CARDIOLOGY DEPARTMENT EDV ml CARDIOLOGY DEPARTMENT AV Mean Gradient 6.59 mmHg CARDIOLOGY DEPARTMENT Specimen Performing Organization Address City/[facility] Phone Number CARDIOLOGY DEPARTMENT FREE T4 (03/14/2019 6:29 AM EDT) Free T4 1.6 0.8 - 2.2 NG/DL [facility] Specimen Blood - Blood specimen (specimen) Performing Organization Address City/[facility] Cent[facility]ode Phone Number [facility] [address] [place] [address] [phone] BASIC METABOLIC PANEL (03/14/2019 6:29 AM EDT) Glucose 185 (H) 70 - 99 mg/dl [facility] BUN 20 (H) 7 - 17 mg/dl [facility] Creatinine 0.9 0.7 - 1.2 mg/dl [facility] Sodium 136 134 - 145 mmol/L [facility] Potassium 4.2 3.5 - 5.1 mmol/L [facility] Chloride 105 98 - 107 mmol/L [facility] CO2 23 22 - 30 mmol/L [facility] Calcium 8.9 8.3 - 10.1 mg/dl [facility] eGFR 60 See Interpretation [facility] Comment: Below ml/min/1.73ml GROUP Estimated GFR Interpretation: Sq LABORATORY Above 60ml/min/1.73m2 = Normal Renal Function 30-59 ml/min/1.73m2 = Stage 3 Chronic Kidney Disease 15-29 ml/min/1.73m2 = Stage 4 Chronic Kidney Disease Less than 15 ml/min/1.73m2 = Stage 5 Chronic Kidney Disease The GFR value is calculated using the Modification of Diet in Renal Disease ( MDRD) Study Equation which can be found at: https://www.kidney.org/content/skcl-nazxp-bqoodzmb BUN/Creatinine 22 6 - 22 RATIO [facility] Ratio [facility] Anion Gap 8 3 - 11 mmol/L [facility] Specimen Blood - Blood specimen (specimen) Performing Organization Address City/State/Zipcode Phone Number [facility] [address] [place] [address] [phone] CBC NO DIFFERENTIAL (03/14/2019 6:29 AM EDT) WBC Count 9.79Comment: 3.98 - 10.04 [facility] Methodology was K/uL [facility] changed 06/09/2018. Please note updated reference range and units. RBC Count 2.43 (L) 3.93 - 5.22 [facility] M/UL [facility] Hemoglobin 7.8 (L) 11.2 - 15.7 [facility] g/dL [facility] Hematocrit 24.0 (L) 34.1 - 44.9 % [facility] MCV 98.8 (H) 79.4 - 94.8 [facility] FL [facility] MCH 32.1 25.6 - 32.2 [facility] PG [facility] MCHC 32.5 32.2 - 35.5 [facility] g/dL [facility] Platelet Count 248 182 - 369 [facility] K/uL [facility] MPV 11.1 9.4 - 12.3 FL [facility] RDW 12.4 11.7 - 14.4 % [facility] Specimen Blood - Blood specimen (specimen) Performing Organization Address [facility] Cent[facility]ode Phone Number [facility] [address] [place] [address] [phone] PROTHROMBIN TIME (03/13/2019 9:39 AM EDT) INR 1.51 (H)Comment: INR 0.79 - 1.15 [facility] Therapeutic Range: Ratio [facility] 2.0 - 3.5 Protime 17.9 (H) 11.4 - 14.3 sec [facility] Specimen Blood - Blood specimen (specimen) Performing Organization Address [facility] Phone Number [facility] [address] [place] [address] [phone] CBC NO DIFFERENTIAL (03/13/2019 5:53 AM EDT) WBC Count 12.44 (H)Comment: 3.98 - 10.04 [facility] Methodology was K/uL [facility] changed 06/09/2018. Please note updated reference range and units. RBC Count 2.42 (L) 3.93 - 5.22 [facility] M/UL [facility] Hemoglobin 7.5 (L) 11.2 - 15.7 [facility] g/dL [facility] Hematocrit 24.1 (L) 34.1 - 44.9 % [facility] MCV 99.6 (H) 79.4 - 94.8 [facility] FL [facility] MCH 31.0 25.6 - 32.2 [facility] PG [facility] MCHC 31.1 (L) 32.2 - 35.5 [facility] g/dL [facility] Platelet Count 219 182 - 369 [facility] K/uL [facility] MPV 11.6 9.4 - 12.3 FL [facility] RDW 12.4 11.7 - 14.4 % [facility] Specimen Blood - Blood specimen (specimen) Performing Organization Address [facility] Centercode Phone Number [facility] [address] [place] [address] MAGNESIUM LEVEL (03/13/2019 5:52 AM EDT) Magnesium 2.1 1.6 - 2.3 MG/DL [facility] Specimen Blood - Blood specimen (specimen) Performing Organization Address [facility] Phone Number [facility] [address] [place] [address] THYROID STIMULATING HORMONE (03/13/2019 5:52 AM EDT) TSH 0.14 (L) 0.47 - 4.68 uIu/ml [facility] Specimen Blood - Blood specimen (specimen) Performing Organization Address [facility] Phone Number [facility] [address] [place] [address] BASIC METABOLIC PANEL (03/13/2019 5:52 AM EDT) Glucose 145 (H) 70 - 99 mg/dl [facility] BUN 29 (H) 7 - 17 mg/dl [facility] Creatinine 1.1 0.7 - 1.2 mg/dl [facility] Sodium 137 134 - 145 mmol/L [facility] Potassium 4.3 3.5 - 5.1 mmol/L [facility] Chloride 107 98 - 107 mmol/L [facility] CO2 24 22 - 30 mmol/L [facility] Calcium 8.5 8.3 - 10.1 mg/dl [facility] eGFR 48 See Interpretation [facility] Comment: Below ml/min/1.73ml GROUP Estimated GFR Interpretation: Sq LABORATORY Above 60ml/min/1.73m2 = Normal Renal Function 30-59 ml/min/1.73m2 = Stage 3 Chronic Kidney Disease 15-29 ml/min/1.73m2 = Stage 4 Chronic Kidney Disease Less than 15 ml/min/1.73m2 = Stage 5 Chronic Kidney Disease The GFR value is calculated using the Modification of Diet in Renal Disease ( MDRD) Study Equation which can be found at: https://www.kidney.org/content/mxaz-wzlmm-wahhxopg BUN/Creatinine 26 (H) 6 - 22 RATIO [facility] LABORATORY Anion Gap 6 3 - 11 mmol/L [facility] Specimen Blood - Blood specimen (specimen) Performing Organization Address [facility] [place] Phone Number [facility] [address] [place] [address] [phone] HEMOGLOBIN & HEMATOCRIT (03/12/2019 7:16 AM EDT) Hemoglobin 7.9 (L)Comment: 11.2 - 15.7 [facility] Methodology was g/dL GROUP LABORATORY changed 06/09/2018. Please note updated reference range and units. Hematocrit 24.3 (L) 34.1 - 44.9 % [facility] Specimen Blood - Blood specimen (specimen) Performing Organization Address [facility] [place] Phone Number [facility] [address] [place] [address] BASIC METABOLIC PANEL (03/12/2019 7:16 AM EDT) Glucose 148 (H) 70 - 99 mg/dl [facility] BUN 40 (H) 7 - 17 mg/dl [facility] Creatinine 1.2 0.7 - 1.2 mg/dl [facility] Sodium 136 134 - 145 mmol/L [facility] Potassium 4.3 3.5 - 5.1 mmol/L [facility] Chloride 105 98 - 107 mmol/L [facility] CO2 25 22 - 30 mmol/L [facility] Calcium 8.5 8.3 - 10.1 mg/dl [facility] eGFR 43 See Interpretation [facility] Comment: Below ml/min/1.73ml GROUP Estimated GFR Interpretation: Sq LABORATORY Above 60ml/min/1.73m2 = Normal Renal Function 30-59 ml/min/1.73m2 = Stage 3 Chronic Kidney Disease 15-29 ml/min/1.73m2 = Stage 4 Chronic Kidney Disease Less than 15 ml/min/1.73m2 = Stage 5 Chronic Kidney Disease The GFR value is calculated using the Modification of Diet in Renal Disease ( MDRD) Study Equation which can be found at: https://www.kidney.org/content/obdy-xnhsq-hzyhxwhn BUN/Creatinine 33 (H) 6 - 22 RATIO [facility]ORATORY Anion Gap 6 3 - 11 mmol/L [facility] Specimen Blood - Blood specimen (specimen) Performing Organization Address [facility] [place] Phone Number [facility] [address] [place] [address] OCCULT BLOOD STOOL (LAB) (03/11/2019 12:00 PM EDT) Stool Occult Blood Positive (A) Negative [facility] Specimen Stool - Stool specimen (specimen) Performing Organization Address City/State/[facility] Phone Number [facility] [address] [address] CBC WITH DIFFERENTIAL (03/11/2019 8:03 AM EDT) WBC Count 12.68 (H) 3.98 - 10.04 [facility] K/uL LABORATORY RBC Count 2.42 (L) 3.93 - 5.22 M/UL [facility] Hemoglobin 7.8 (L) 11.2 - 15.7 g/dL [facility] Hematocrit 23.3 (L) 34.1 - 44.9 % [facility] MCV 96.3 (H) 79.4 - 94.8 FL [facility] MCH 32.2 25.6 - 32.2 PG [facility] MCHC 33.5 32.2 - 35.5 g/dL [facility] Platelet Count 159 (L) 182 - 369 K/uL [facility] MPV 12.6 (H) 9.4 - 12.3 FL [facility] RDW 12.0 11.7 - 14.4 % [facility] Neutrophil % 80.5 (H) 34.0 - 71.1 % [facility] Lymphocyte % 5.2 (L) 19.3 - 51.7 % [facility] Monocyte % 10.2 4.7 - 12.5 % [facility] Eosinophil % 2.4 0.7 - 5.8 % [facility] Basophil % 0.4 0.1 - 1.2 % [facility] nRBC % 0.0 0.0 - 0.2 % [facility] Neutrophil # 10.21 (H) 1.56 - 6.13 K/UL [facility] Lymphocyte # 0.66 (L) 1.18 - 3.74 K/UL [facility] Monocyte # 1.29 (H) 0.24 - 0.86 K/UL [facility] Eosinophil # 0.31 0.04 - 0.36 K/UL [facility] Basophil # 0.05 0.01 - 0.08 K/UL [facility] Immature Gran % 1.3 (H) 0.0 - 0.4 % [facility] Immature Gran # 0.16 (H) 0.00 - 0.03 K/uL [facility] NRBC # 0.00 0.00 - 0.12 K/uL [facility] Specimen Blood - Blood specimen (specimen) Performing Organization Address City/State/Zipcode Phone Number [facility] [address] [facility] [place] [place] [address] BASIC METABOLIC PANEL (03/11/2019 8:03 AM EDT) Glucose 169 (H) 70 - 99 mg/dl [facility] BUN 56 (H) 7 - 17 mg/dl [facility] Creatinine 1.7 (H) 0.7 - 1.2 mg/dl [facility] Sodium 131 (L) 134 - 145 mmol/L [facility] Potassium 4.3 3.5 - 5.1 mmol/L [facility] Chloride 97 (L) 98 - 107 mmol/L [facility] CO2 27 22 - 30 mmol/L [facility] Calcium 8.4 8.3 - 10.1 mg/dl [facility] eGFR 29 See Interpretation [facility] Comment: Below ml/min/1.73ml GROUP Estimated GFR Interpretation: LABORATORY Above 60ml/min/1.73m2 = Normal Renal Function 30-59 ml/min/1.73m2 = Stage 3 Chronic Kidney Disease 15-29 ml/min/1.73m2 = Stage 4 Chronic Kidney Disease Less than 15 ml/min/1.73m2 = Stage 5 Chronic Kidney Disease The GFR value is calculated using the Modification of Diet in Renal Disease ( MDRD) Study Equation which can be found at: https://www.kidney.org/content/ddwy-yitql-pswkkmpc BUN/Creatinine 33 (H) 6 - 22 RATIO [facility]OR[facility]ORY Anion Gap 7 3 - 11 mmol/L [facility] Specimen Blood - Blood specimen (specimen) Performing Organization Address [facility] [place] Phone Number [facility] [address] [place] [address] STREPTOCOCCUS PNEUMONIAE URINARY ANTIGEN (03/11/2019 2:21 AM EDT) Streptococcus Negative Negative [facility] Pneumoniae Comment: GROUP Presumptive negative for Pneumococcal pneumonia, suggesting no current LABORATORY or recent Pneumococcal infection. Infection due to Streptococcus pneumoniae cannot be ruled out since the antigen present in the sample may be below the detection limit of the test. Testing by immunochromatographic assay. Specimen Urine - Urine specimen (specimen) Performing Organization Address [facility] Number [facility] [address] [place] [address] LEGIONELLA PNEUMOPHILA URINARY ANTIGEN (03/11/2019 2:21 AM EDT) Legionella Negative Negative [facility] pneumophila Comment: GROUP Presumptive negative for Legionella pneumophila serogroup 1 antigen in urine , LABORATORY suggesting no recent or current infection. Infection due to Legionella cannot be ruled out since other serogroups and species may cause disease. Antigen may not be present in urine in early infection, and the level of antigen present in the urine may be below the detection limit of the test. Testing performed by immunochromatographic assay. Specimen Urine - Urine specimen (specimen) Performing Organization Address [facility] [place] Phone Number [facility] [address] [place] [address] PLATELET COUNT (03/10/2019 11:43 PM EDT) Platelet Count 172 (L)Comment: 182 - 369 [facility] Methodology was K/uL GROUP LABORATORY changed 06/09/2018. Please note updated reference range and units. Specimen Blood - Blood specimen (specimen) Performing Organization Address [facility] [place] Phone Number [facility] [address] [place] [address] [phone] XR CHEST 1 VIEW (03/10/2019 10:51 AM EDT) Specimen Impressions Performed At Limited portable study with lordotic positioning. Suggestion of small increased opacity in the right perihilar region, may represent small infiltrate or area of scarring. Consider standard PA and lateral views of the chest for further evaluation if clinically warranted. Signed by Khadar Bill on 03/10/2019 11:41 AM Narrative Performed At Procedure(s): XR CHEST 1 VIEW Date of service: 03/10/2019 10:41 AM Provided clinical information: 84 years, Female, "productive cough" Procedure and materials: Single portable view of the chest. The study is limited by portable technique. Comparison studies: CXR dated 02/09/2019 Observations: Heart size is magnified by portable technique. No appreciable pneumothorax. Small increased opacity in the right perihilar region. Procedure Note Interface, Rad Results - 03/10/2019 11:43 AM EDT Procedure(s): XR CHEST 1 VIEW Date of service: 03/10/2019 10:41 AM Provided clinical information: 84 years, Female, "productive cough" Procedure and materials: Single portable view of the chest. The study is limited by portable technique. Comparison studies: CXR dated 02/09/2019 Observations: Heart size is magnified by portable technique. No appreciable pneumothorax. Small increased opacity in the right perihilar region. IMPRESSION Limited portable study with lordotic positioning. Suggestion of small increased opacity in the right perihilar region, may represent small infiltrate or area of scarring. Consider standard PA and lateral views of the chest for further evaluation if clinically warranted. Signed by Khadar Bill on 03/10/2019 11:41 AM CELLAVISION DIFFERENTIAL (03/10/2019 5:05 AM EDT) Seg Neutrophils 94 (H) 38 - 70 % [facility] Lymphocytes 4 (L) 21 - 49 % [facility] Monocytes 2 1 - 11 % [facility] Neutrophils Absolute 15.9 (H) 1.8 - 7.7 K/uL [facility] Lymphocytes Absolute 0.7 (L) 1.0 - 5.0 K/uL [facility] Monocytes Absolute 0.3 0.0 - 0.8 K/uL [facility] RBC MORPHOLOGY abnormal (A) Normal [facility] Anisocytosis 1+ [facility] Poikilocytosis 1+ [facility] Ovalocytes 1+ [facility] Tear Drop Cells 1+ [facility] WBC MORPHOLOGY Normal Normal [facility] PLT MORPHOLOGY Normal Normal [facility] Platelet Estimate Normal Normal [facility] Specimen Blood - Blood specimen (specimen) Performing Organization Address City/State/Zipcode Phone Number [facility] [address] [place] [address] CBC WITH DIFFERENTIAL (03/10/2019 5:05 AM EDT) WBC Count 16.88 (H) 3.98 - 10.04 [facility] K/uL LABORATORY RBC Count 2.85 (L) 3.93 - 5.22 M/UL [facility] Hemoglobin 9.1 (L) 11.2 - 15.7 g/dL [facility] Hematocrit 27.7 (L) 34.1 - 44.9 % [facility] MCV 97.2 (H) 79.4 - 94.8 FL [facility] MCH 31.9 25.6 - 32.2 PG [facility] MCHC 32.9 32.2 - 35.5 g/dL [facility] Platelet Count 228 182 - 369 K/uL [facility] MPV 12.0 9.4 - 12.3 FL [facility] RDW 12.0 11.7 - 14.4 % [facility] Neutrophil % 82.4 (H) 34.0 - 71.1 % [facility] Lymphocyte % 7.0 (L) 19.3 - 51.7 % [facility] Monocyte % 9.2 4.7 - 12.5 % [facility] Eosinophil % 0.4 (L) 0.7 - 5.8 % [facility] Basophil % 0.2 0.1 - 1.2 % [facility] nRBC % 0.0 0.0 - 0.2 % [facility] Neutrophil # 13.89 (H) 1.56 - 6.13 K/UL [facility] Lymphocyte # 1.19 1.18 - 3.74 K/UL [facility] Monocyte # 1.55 (H) 0.24 - 0.86 K/UL [facility] Eosinophil # 0.07 0.04 - 0.36 K/UL [facility] Basophil # 0.04 0.01 - 0.08 K/UL [facility] Immature Gran % 0.8 (H) 0.0 - 0.4 % [facility] Immature Gran # 0.14 (H) 0.00 - 0.03 K/uL [facility] NRBC # 0.00 0.00 - 0.12 K/uL [facility] Specimen Blood - Blood specimen (specimen) Performing Organization Address City/State/Zipcode Phone Number [facility] [address] [facility] [place] [address] BASIC METABOLIC PANEL (03/10/2019 5:05 AM EDT) Glucose 158 (H) 70 - 99 mg/dl [facility] BUN 47 (H) 7 - 17 mg/dl [facility] Creatinine 1.9 (H) 0.7 - 1.2 mg/dl [facility] Sodium 129 (L) 134 - 145 mmol/L [facility] Potassium 4.3 3.5 - 5.1 mmol/L [facility] Chloride 94 (L) 98 - 107 mmol/L [facility] CO2 27 22 - 30 mmol/L [facility] Calcium 8.3 8.3 - 10.1 mg/dl [facility] eGFR 25 See Interpretation [facility] Comment: Below ml/min/1.73ml GROUP Estimated GFR Interpretation: LABORATORY Above 60ml/min/1.73m2 = Normal Renal Function 30-59 ml/min/1.73m2 = Stage 3 Chronic Kidney Disease 15-29 ml/min/1.73m2 = Stage 4 Chronic Kidney Disease Less than 15 ml/min/1.73m2 = Stage 5 Chronic Kidney Disease The GFR value is calculated using the Modification of Diet in Renal Disease ( MDRD) Study Equation which can be found at: https://www.kidney.org/content/glpp-voolw-gmwwhtah BUN/Creatinine 25 (H) 6 - 22 RATIO [facility]ORY Anion Gap 8 3 - 11 mmol/L [facility] Specimen Blood - Blood specimen (specimen) Performing Organization Address City/State/Zipcode Phone Number [facility] [address] [place] [address] US RETROPERITONEAL COMPLETE (03/09/2019 5:30 PM EDT) Specimen Impressions Performed At Limited study as described above. No convincing evidence of hydronephrosis. Bilateral renal cysts present. Signed by Khadar Bill on 03/09/2019 7:47 PM Narrative Performed At Procedure(s): US RETROPERITONEAL COMPLETE Date of service: 03/09/2019 4:55 PM Provided clinical information: 84 years, Female, "IGNACIA" Procedure and materials: Sonographic imaging of the kidneys and urinary bladder including color imaging. Study is significantly limited due to patient's condition and inability to cooperate. Comparison studies: None. Observations: The right kidney measures 9.2 x 3.7 x 4.5 cm. The left kidney measures 12 x 4.8 x 4.5 cm. No definite evidence of hydronephrosis. Multiple right renal cysts the largest which measure 5.8 cm. Multiple left renal cysts the largest of which measure 4.6 cm. Urinary bladder volume was 27 cc at the time of examination (the urinary bladder was almost empty at the time of scanning). Normal left-sided ureteral jet noted. No right-sided ureteral jet visualized. Patient was unable to void. Procedure Note Interface, Rad Results - 03/09/2019 7:49 PM EDT Procedure(s): US RETROPERITONEAL COMPLETE Date of service: 03/09/2019 4:55 PM Provided clinical information: 84 years, Female, "IGNACIA" Procedure and materials: Sonographic imaging of the kidneys and urinary bladder including color imaging. Study is significantly limited due to patient's condition and inability to cooperate. Comparison studies: None. Observations: The right kidney measures 9.2 x 3.7 x 4.5 cm. The left kidney measures 12 x 4.8 x 4.5 cm. No definite evidence of hydronephrosis. Multiple right renal cysts the largest which measure 5.8 cm. Multiple left renal cysts the largest of which measure 4.6 cm. Urinary bladder volume was 27 cc at the time of examination (the urinary bladder was almost empty at the time of scanning). Normal left-sided ureteral jet noted. No right-sided ureteral jet visualized. Patient was unable to void. IMPRESSION Limited study as described above. No convincing evidence of hydronephrosis. Bilateral renal cysts present. Signed by Khadar Bill on 03/09/2019 7:47 PM HEMOGLOBIN & HEMATOCRIT (03/09/2019 7:00 AM EDT) Hemoglobin 10.8 (L)Comment: 11.2 - 15.7 [facility] Methodology was g/dL GROUP LABORATORY changed 06/09/2018. Please note updated reference range and units. Hematocrit 33.7 (L) 34.1 - 44.9 % [facility] Specimen Blood - Blood specimen (specimen) Performing Organization Address City/State/Zipcode Phone Number [facility] [address] [place] [address] BASIC METABOLIC PANEL (03/09/2019 7:00 AM EDT) Glucose 178 (H) 70 - 99 mg/dl [facility] BUN 30 (H) 7 - 17 mg/dl [facility] Creatinine 2.1 (H) 0.7 - 1.2 mg/dl [facility] Sodium 137 134 - 145 mmol/L [facility] Potassium 4.6 3.5 - 5.1 mmol/L [facility] Chloride 101 98 - 107 mmol/L [facility] CO2 28 22 - 30 mmol/L [facility] Calcium 9.2 8.3 - 10.1 mg/dl [facility] eGFR 23 See Interpretation [facility] Comment: Below ml/min/1.73ml [facility] Estimated GFR Interpretation: LABORATORY Above 60ml/min/1.73m2 = Normal Renal Function 30-59 ml/min/1.73m2 = Stage 3 Chronic Kidney Disease 15-29 ml/min/1.73m2 = Stage 4 Chronic Kidney Disease Less than 15 ml/min/1.73m2 = Stage 5 Chronic Kidney Disease The GFR value is calculated using the Modification of Diet in Renal Disease ( MDRD) Study Equation which can be found at: https://www.kidney.org/content/dkkp-pungb-xustidqt BUN/Creatinine 14 6 - 22 RATIO [facility] LABORATORY Anion Gap 8 3 - 11 mmol/L [facility] Specimen Blood - Blood specimen (specimen) Performing Organization Address City/State/Zipcode Phone Number [facility] [address] [place] [address] XR HIP 2 VIEWS UNILAT W/PELVIS RIGHT (03/08/2019 5:17 PM EDT) Specimen Impressions Performed At Expected immediate postoperative appearance of right total hip arthroplasty without evidence of hardware failure or complication. Signed by Marissa Madsen MD on 03/08/2019 5:35 PM Narrative Performed At Procedure(s): XR HIP 2 VIEWS UNILAT W/PELVIS RIGHT Date of service: 03/08/2019 4:46 PM Provided clinical information: 84 years, Female, "post op" Procedure and materials: Single AP x-ray of the pelvis and AP and crosstable lateral views of the right hip were obtained. Comparison studies: None. Observations: Single AP x-ray of the pelvis and AP and crosstable lateral views of the right total hip arthroplasty demonstrate expected postoperative alignment. The femoral and acetabular components remain well seated without esteban-hardware fracture. Multiple cerclage wires are in place. Remaining visualized osseous structures are intact. Stable healed posttraumatic deformity of the mid femoral shaft. Procedure Note Interface, Rad Results - 03/08/2019 5:37 PM EDT Procedure(s): XR HIP 2 VIEWS UNILAT W/PELVIS RIGHT Date of service: 03/08/2019 4:46 PM Provided clinical information: 84 years, Female, "post op" Procedure and materials: Single AP x-ray of the pelvis and AP and crosstable lateral views of the right hip were obtained. Comparison studies: None. Observations: Single AP x-ray of the pelvis and AP and crosstable lateral views of the right total hip arthroplasty demonstrate expected postoperative alignment. The femoral and acetabular components remain well seated without esteban-hardware fracture. Multiple cerclage wires are in place. Remaining visualized osseous structures are intact. Stable healed posttraumatic deformity of the mid femoral shaft. IMPRESSION Expected immediate postoperative appearance of right total hip arthroplasty without evidence of hardware failure or complication. Signed by Marissa Madsen MD on 03/08/2019 5:35 PM XR HIP 2 VIEWS UNILATERAL RIGHT (03/08/2019 3:43 PM EDT) Specimen Impressions Performed At Fluoroscopy was used to assist with the orthopedic procedure. Please reference to operating provider's procedure note for further detail. Urgency: Routine. This is a routine medical imaging report. Signed by Khadar Bill on 03/08/2019 3:49 PM Narrative Performed At Procedure(s): XR HIP 2 VIEWS UNILATERAL RIGHT Date of service: 03/08/2019 3:15 PM Provided clinical information: 84 years, Female, "right total hip revision" Procedure and materials: fluoroscopy guidance . Potential limitations: Limited study. Comparison studies: None. Observations: Fluoroscopy was used to assist with the orthopedic procedure. 2.8 seconds of fluoroscopy time were utilized. Procedure Note Interface, Rad Results - 03/08/2019 3:51 PM EDT Procedure(s): XR HIP 2 VIEWS UNILATERAL RIGHT Date of service: 03/08/2019 3:15 PM Provided clinical information: 84 years, Female, "right total hip revision" Procedure and materials: fluoroscopy guidance . Potential limitations: Limited study. Comparison studies: None. Observations: Fluoroscopy was used to assist with the orthopedic procedure. 2.8 seconds of fluoroscopy time were utilized. IMPRESSION Fluoroscopy was used to assist with the orthopedic procedure. Please reference to operating provider's procedure note for further detail. Urgency: Routine. This is a routine medical imaging report. Signed by Khadar Bill on 03/08/2019 3:49 PM XR FEMUR MIN 2 VW RIGHT (03/07/2019 12:49 AM EDT) Specimen Impressions Performed At 1. Right total hip arthroplasty. No acute fracture or dislocation of right femur. 2. Old, healed fracture deformity of the midshaft of the femur. Signed by Michael Lombardi on 03/07/2019 1:01 AM Narrative Performed At Procedure: XR FEMUR MIN 2 VW RIGHT Date of service: 03/07/2019 12:30 AM History: 84 years, Female, "periprosthetic femur fracture and deformity" Technique: 2 views of right femur Comparison: CT right femur 03/06/19, right hip radiograph 02/20/19 Findings: There is a right total hip arthroplasty. The hardware is intact and well seated with normal alignment. There is old, healed fracture deformity of the midshaft of the femur. There is no acute fracture or dislocation. Procedure Note Interface, Rad Results - 03/07/2019 1:03 AM EDT Procedure: XR FEMUR MIN 2 VW RIGHT Date of service: 03/07/2019 12:30 AM History: 84 years, Female, "periprosthetic femur fracture and deformity" Technique: 2 views of right femur Comparison: CT right femur 03/06/19, right hip radiograph 02/20/19 Findings: There is a right total hip arthroplasty. The hardware is intact and well seated with normal alignment. There is old, healed fracture deformity of the midshaft of the femur. There is no acute fracture or dislocation. IMPRESSION 1. Right total hip arthroplasty. No acute fracture or dislocation of right femur. 2. Old, healed fracture deformity of the midshaft of the femur. Signed by Michael Lombardi on 03/07/2019 1:01 AM XR HIP 2 VIEWS UNILAT W/PELVIS RIGHT (03/07/2019 12:47 AM EDT) Specimen Impressions Performed At 1. Right total hip arthroplasty. No acute fracture or dislocation. Signed by Michael Lombardi on 03/07/2019 1:10 AM Narrative Performed At Procedure: XR HIP 2 VIEWS UNILAT W/PELVIS RIGHT Date of service: 03/07/2019 12:30 AM History: 84 years, Female, "periprosthetic femur fracture. AP and cross table lateral views. DO NOT FROG LEG" Technique: 1 AP view of pelvis and 2 views of right hip (AP, crosstable lateral) Comparison: 02/20/19 Findings: There is a right total hip arthroplasty. The hardware is intact and well seated. There is no acute fracture or dislocation. There is old, healed fracture deformity of the midshaft of the right femur. 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 There are pelvic surgical clips. Procedure Note Interface, Rad Results - 03/07/2019 1:12 AM EDT Procedure: XR HIP 2 VIEWS UNILAT W/PELVIS RIGHT Date of service: 03/07/2019 12:30 AM History: 84 years, Female, "periprosthetic femur fracture. AP and cross table lateral views. DO NOT FROG LEG" Technique: 1 AP view of pelvis and 2 views of right hip (AP, crosstable lateral) Comparison: 02/20/19 Findings: There is a right total hip arthroplasty. The hardware is intact and well seated. There is no acute fracture or dislocation. There is old, healed fracture deformity of the midshaft of the right femur. 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 There are pelvic surgical clips. IMPRESSION 1. Right total hip arthroplasty. No acute fracture or dislocation. Signed by Michael Lombardi on 03/07/2019 1:[address] LOWER EXTREMITY FEMUR RIGHT (03/06/2019 11:15 PM EDT) Specimen Performing Organization Address [facility] POCT 1 BRAD [place] [id number] XR HIP 2 VIEWS UNILAT W/PELVIS RIGHT (03/06/2019 11:10 PM EDT) Specimen Performing Organization Address [facility] [place] Number PO[place] 1 BR[place] [address] XR KNEE 4 OR MORE VIEWS RIGHT (STANDARD) (03/06/2019 11:05 PM EDT) Specimen Performing Organization Address [facility] [place] [facility] [address]CT [address] LOWER EXTREMITY HIP RIGHT (03/06/2019 12:10 AM EDT) Specimen Narrative Performed At Performing Organization Address [facility] [place] Number [facility] POCT 1 BRAD [place] [address] XR HIP 4 VIEWS MIN UNILAT W/PELVIS RIGHT (03/06/2019 12:05 AM EDT) Specimen Narrative Performed At Performing Organization Address [facility] [place] Number [facility] POCT 1 BRAD [place] [address] XR KNEE 4 OR MORE VIEWS RIGHT (STANDARD) (03/06/2019 12:00 AM EDT) Specimen Narrative Performed At Performing Organization Address [facility] Phone Number POCT 1 [address] [place] [id number] documented in this encounter Visit Diagnoses Diagnosis Closed fracture of right femur (HCC) - Primary Closed fracture of unspecified part of femur Pain Generalized pain Bigeminy Other specified cardiac dysrhythmias documented in this encounter Administered Medications Medication Order MAR Action Action Date Dose Rate Site acetaminophen (TYLENOL) tablet Given 03/08/2019 1:24 PM EDT 1,000 mg 1,000 mg 1,000 mg, Oral, NOW, 1 dose, 03/08/19 at 1320 acetaminophen (TYLENOL) tablet 1,000 mg Given 03/14/2019 8:24 AM EDT 1,000 mg 1,000 mg, Oral, Q8 HRS, First dose on Wed03/08/19 at 1810, Until Discontinued Given 03/13/2019 9:35 PM EDT 1,000 mg Given 03/13/2019 2:37 PM EDT 1,000 mg aspirin (ECOTRIN) enteric coated tablet 325 Given 03/15/2019 9:18 AM EDT 325 mg mg 325 mg, Oral, BID, 30 doses, First dose on Wed03/09/19 at 0900, Last dose on Wed03/23/19 at 2100 Given 03/14/2019 8:33 PM EDT 325 mg Given 03/14/2019 8:15 AM EDT 325 mg aspirin tablet 325 mg Given 03/07/2019 9:47 AM EDT 325 mg 325 mg, Oral, BID, First dose on Wed03/07/19 at 0900, Until Discontinued azithromycin (ZITHROMAX) IV mixture 500 mg New Bag 03/14/2019 6:01 PM EDT 500 mg 500 mg, Intravenous, Q24 HRS, 5 doses, First dose on Wed03/10/19 at 1710, Last dose on Wed03/14/19 at 1801 New Bag 03/13/2019 6:53 PM EDT 500 mg New Bag 03/12/2019 4:50 PM EDT 500 mg bisacodyl (DULCOLAX) enteric coated tablet 10 mg 10 mg, Oral, DAILY PRN, Starting Wed03/08/19 at 1800, Until Wed03/15/19 at 1305 , Constipation - 2nd line if no stooling 8 hours after administration of 1st line agent bisacodyl (DULCOLAX) suppository 10 mg 10 mg, Rectal, DAILY PRN, Starting Wed03/08/19 at 1800, Until Wed03/15/19 at 1305, Constipation - 3rd line if no stooling in 8 hours after administration of 2nd line agent; call provider if no stooling 8 hours after administration of 3rd line agent calcium carbonate (TUMS) chewable tablet 500 mg 500 mg, Oral, Q8 HRS PRN, Starting Wed03/08/19 at 1800, Until Wed03/15/19 at 1305, Heartburn - 1st line carvedilol (COREG) tablet 12.5 mg Given 03/13/2019 7:58 AM EDT 12.5 mg 12.5 mg, Oral, BID WITH MEALS, First dose on Wed03/07/19 at 0800, Until Discontinued Given 03/12/2019 4:50 PM EDT 12.5 mg Given 03/12/2019 7:43 AM EDT 12.5 mg carvedilol (COREG) tablet 25 mg Given 03/15/2019 7:49 AM EDT 25 mg 25 mg, Oral, BID WITH MEALS, First dose (after last modification) on Wed03/13/19 at 1700, Until Discontinued Given 03/14/2019 5:22 PM EDT 25 mg Given 03/14/2019 8:15 AM EDT 25 mg ceFAZolin (ANCEF) IV premix 1,000 mg New Bag 03/09/2019 5:19 AM EDT 1,000 mg 1,000 mg, Intravenous, Q8 HRS, 2 doses, First dose on Wed03/08/19 at 1810, Last dose on Wed03/09/19 at 0500 New Bag 03/08/2019 9:14 PM EDT 1,000 mg ceftriaxone (ROCEPHIN) 1,000 mg in New Bag 03/14/2019 5:22 PM EDT 1,000 mg dextrose 5% INJ mini-bag (WHEN ACTIVATED) 1,000 mg, Intravenous, Q24 HRS, 5 doses, First dose on Wed03/10/19 at 1710, Last dose on Wed03/14/19 at 1710 New Bag 03/13/2019 5:55 PM EDT 1,000 mg New Bag 03/12/2019 4:24 PM EDT 1,000 mg celeCOXIB (CeleBREX) capsule 200 mg Given 03/08/2019 1:24 PM EDT 200 mg 200 mg, Oral, NOW, 1 dose, Wed03/08/19 at 1320 cyclobenzaprine (FLEXERIL) tablet 5 mg Given 03/12/2019 12:17 PM EDT 5 mg 5 mg, Oral, TID PRN, Starting Wed03/06/19 at 2144, Until Wed03/14/19 at 1501, muscle spasms Given 03/11/2019 1:10 PM EDT 5 mg Given 03/09/2019 4:38 PM EDT 5 mg FentaNYL (PF) (SUBLIMAZE) injection (PF) 50 Given 03/08/2019 5:04 PM EDT 50 mcg mcg 50 mcg, Intravenous Push, PRU Q5MIN PRN, Starting Wed03/08/19 at 1640, Until Wed03/08/19 at 1751, Moderate Pain (pain scale 4-6) - IV - 1st line - if immediate effect required or patient cannot tolerate PO, Severe Pain (pain scale 7-10) - IV - 1st line - if immediate effect required or patient cannot tolerate PO, 4 Recovery ferrous gluconate tablet 324 mg Given 03/15/2019 9:18 AM EDT 324 mg 324 mg, Oral, DAILY, First dose on Wed03/08/19 at 1810, Until Discontinued Given 03/14/2019 8:15 AM EDT 324 mg Given 03/12/2019 8:34 AM EDT 324 mg gabapentin (NEURONTIN) capsule 100 mg Given 03/14/2019 8:33 PM EDT 100 mg 100 mg, Oral, QHS, First dose on Wed03/08/19 at 2100, Until Discontinued Given 03/13/2019 9:35 PM EDT 100 mg Given 03/12/2019 8:56 PM EDT 100 mg gabapentin (NEURONTIN) capsule 300 mg Given 03/08/2019 1:24 PM EDT 300 mg 300 mg, Oral, X1, 1 dose, First dose on Wed03/08/19 at 1420 hydralazine (APRESOLINE) injection 20 mg Given 03/08/2019 4:36 PM EDT 20 mg 20 mg, Intravenous Push, X1, 1 dose, First dose on Wed03/08/19 at 1640, 4 Recovery hydrochlorothiazide (HCTZ, ORETIC) tablet Given 03/08/2019 4:55 PM EDT 12.5 mg 12.5 mg 12.5 mg, Oral, DAILY, First dose on Wed03/07/19 at 0900, Until Discontinued Given 03/07/2019 8:40 AM EDT 12.5 mg HYDROcodone-acetaminophen (NORCO) 5-325 mg 1 Given 03/14/2019 5:36 PM EDT 1 Tab Tab 1 Tab, Oral, Q4 HRS PRN, Starting Wed03/14/19 at 1459, Until Wed03/15/19 at 1305, Moderate Pain (pain scale 4-6) - PO - 1st line - if immediate effect not required and patient can tolerate PO, Severe Pain (pain scale 7-10) - PO - 1st line - if immediate effect not required and patient can tolerate PO magnesium hydroxide (MILK OF MAGNESIA) 400 Given 03/10/2019 9:00 PM EDT 30 mL MG/5ML oral suspension 30 mL 30 mL, Oral, QHS, First dose on Wed03/08/19 at 2100, Until Discontinued morphine (PF) syringe 2 mg Given 03/07/2019 12:58 AM EDT 2 mg 2 mg, Intravenous Push, Q3 HRS PRN, Starting 03/06/19 at 2139, Until Britt 03/09/19 at 2138, Severe Pain (pain scale 7-10)IV 2nd line - if immediate effect required or cannot tolerate PO & no still has severe pain 1 hr after admin of 1st line agent or did not tolerate 1st line agent naloxone (NARCAN) injection 0.04 mg 0.04 mg, Intravenous, X1 PRN MR, 2 doses, Starting Wed03/08/19 at 1800, Until Wed03/15/19 at 1305, Respiratory rate < ___, 10 normal saline IV New Bag 03/08/2019 6:53 PM EDT 15 mL/hr Intravenous, at 15 mL/hr, CONTINUOUS, Starting Wed03/08/19 at 1810, Until Wed03/10/19 at 1602 normal saline IV New Bag 03/09/2019 1:09 PM EDT 50 mL/hr Intravenous, at 50 mL/hr, CONTINUOUS, Starting Britt 03/09/19 at 1310, Until Britt 03/09/19 at 1908 normal saline IV New Bag 03/12/2019 9:45 AM EDT 100 mL/hr Intravenous, at 100 mL/hr, CONTINUOUS, Starting Wed03/10/19 at 1610, Until 03/12/19 at 2234 Rate Change 03/11/2019 12:37 PM EDT 100 mL/hr New Bag 03/10/2019 4:35 PM EDT 100 mL/hr ondansetron (ZOFRAN) injection 4 mg 4 mg, Intravenous, Q8 HRS PRN, Starting Wed03/08/19 at 1800, Until Wed03/15/19 at 1305, Nausea/Vomiting - IV - 1st line - If immediate effect required or patient cannot tolerate PO OXYcodone (OXY-IR,OXY-FAST) immediate release Given 03/13/2019 6:56 PM EDT 10 mg tablet 10 mg 10 mg, Oral, Q4 HRS PRN, Starting Wed03/08/19 at 1800, Until Wed03/14/19 at 1501, Severe Pain (pain scale 7-10) - PO - 1st line - if immediate effect not required and patient can tolerate PO Given 03/12/2019 2:03 PM EDT 10 mg Given 03/11/2019 7:34 PM EDT 10 mg OXYcodone (OXY-IR,OXY-FAST) immediate release Given 03/09/2019 1:13 PM EDT 5 mg tablet 5 mg 5 mg, Oral, Q4 HRS PRN, Starting Wed03/08/19 at 1800, Until Wed03/14/19 at 1501, Moderate Pain (pain scale 4-6) - PO - 1st line - if immediate effect not required and patient can tolerate PO OXYcodone (OXYCONTIN) 12 hour tablet 10 mg Given 03/08/2019 1:24 PM EDT 10 mg 10 mg, Oral, X1, 1 dose, First dose on Wed03/08/19 at 1420 pantoprazole (PROTONIX) enteric coated tablet Given 03/11/2019 8:05 AM EDT 40 mg 40 mg 40 mg, Oral, DAILY, First dose on Wed03/07/19 at 0900, Until Discontinued Given 03/10/2019 8:37 AM EDT 40 mg Given 03/07/2019 9:47 AM EDT 40 mg pantoprazole (PROTONIX) injection 40 mg Given 03/12/2019 8:35 AM EDT 40 mg 40 mg, Intravenous Push, BID, 6 doses, First dose on Wed03/11/19 at 2100, Last dose on Wed03/14/19 at 0900 Given 03/11/2019 9:21 PM EDT 40 mg pantoprazole (PROTONIX) injection 40 mg Given 03/15/2019 9:27 AM EDT 40 mg 40 mg, Intravenous Push, BID, First dose on Wed03/12/19 at 2100, Until Discontinued Given 03/14/2019 8:33 PM EDT 40 mg Given 03/14/2019 8:16 AM EDT 40 mg perflutren lipid microsphere (DEFINITY) injection 0.5 mL 0.5 mL, Intravenous Push, PRN, Starting Wed03/13/19 at 1300, Until Wed03/15/19 at 1305, Poor visualization (see Admin Instructions for details) up to a max dose of 10 mL polyethylene glycol (MIRALAX) oral pack 17 g Given 03/10/2019 4:35 PM EDT 17 g 17 g, Oral, QPM, First dose on Wed03/08/19 at 1810, Until Discontinued Given 03/09/2019 7:16 PM EDT 17 g Given 03/08/2019 6:53 PM EDT 17 g polyethylene glycol (MIRALAX) oral pack 17 g Given 03/11/2019 9:21 PM EDT 17 g 17 g, Oral, BID, First dose (after last modification) on Wed03/11/19 at 2100, Until Discontinued sennosides-docusate sodium (SENOKOT-S, SENNA Given 03/11/2019 8:05 AM EDT 2 Tabs S) 8.6-50 mg 2 Tab 2 Tab, Oral, BID PRN, Starting Wed03/08/19 at 1800, Until Wed03/15/19 at 1305, Constipation 1st line if no stooling in last 24 hours Given 03/10/2019 8:37 AM EDT 2 Tabs Given 03/09/2019 8:35 AM EDT 2 Tabs sodium ferric gluconate complex in sucrose New Bag 03/14/2019 12:39 PM EDT 125 mg (FERRLECIT) IV mixture 125 mg 125 mg, Intravenous, X1, 1 dose, First dose on Wed03/14/19 at 1050 spironolactone (ALDACTONE) tablet 25 mg Given 03/09/2019 10:01 AM EDT 25 mg 25 mg, Oral, DAILY, First dose on Wed03/07/19 at 0900, Until Discontinued Given 03/07/2019 8:40 AM EDT 25 mg tramadol (ULTRAM) tablet 50 mg Given 03/09/2019 8:36 AM EDT 50 mg 50 mg, Oral, Q6 HRS PRN, Starting Wed03/08/19 at 1800, Until Wed03/15/19 at 1305, Mild Pain (pain scale 1-3) - PO - 1st line - if immediate effect not required and patient can tolerate PO valsartan (DIOVAN) tablet 160 mg Given 03/08/2019 4:56 PM EDT 160 mg 160 mg, Oral, DAILY, First dose on Wed03/07/19 at 0900, Until Discontinued Given 03/07/2019 8:40 AM EDT 160 mg valsartan (DIOVAN) tablet 80 mg Given 03/15/2019 9:18 AM EDT 80 mg 80 mg, Oral, DAILY, First dose on Wed03/14/19 at 0950, Until Discontinued Given 03/14/2019 1:33 PM EDT 80 mg documented in this encounter Insurance Payer Benefit Plan / Subscriber ID Effective Dates Phone Address Type Group AETNA MEDICARE AETNA MEDICARE xxxxxxxx 2017-Present [employer] ADVANTAGE ADVANTAGE (Home) [employer] [phone] [place], [place] (Work) [id number] documented as of this encounter Advance Directives 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
[2019-04-22] MEDS ORDERED: NS 0.9% 1000 ML** 1,000 ML IV ONE (15:11)
[2019-04-22] MEDS ORDERED: Magnesium Sulfate 1 GM IV* 1 GM/100 ML BAG IV ONE (15:12)
[2019-04-22] MEDS ORDERED: cefTRIAXone(*) 1 GM in NS 0.9% 50 ML* 50 ML IVPB ONE (15:13)
[2019-04-22] MEDS ORDERED: Enoxaparin(*) 40 MG/0.4 ML SYR SUBCUT SCH (17:00)
[2019-04-22] MEDS ORDERED: Iodixanol* (CONTRAST) 320 MG/ML 100 ML SDV IV ONE (17:05)
--- NOTE | 2019-04-22 17:29 | ADMNOTE ---
Subjective Date of Service: 04/22/19 Interval History: ADMISSION HISTORY AND PHYSICAL EXAM: Allergies Allergy/AdvReac Type Severity Reaction Status Date / Time No Known Allergies Allergy Verified 04/22/19 13:20 Home Medications Medication Instructions Recorded Confirmed Type Carvedilol [Coreg] 12.5 mg PO BID 12/26/12 04/22/19 History [place]-3 Fatty Acids/Fish Oil 1 cap PO DAILY 12/26/12 04/22/19 History [[place] 3] Red Yeast Rice 600 mg PO DAILY 12/26/12 04/22/19 History Aspirin EC TAB* [Ecotrin EC Low 81 mg PO DAILY 03/06/19 04/22/19 History Dose 81 MG*] Calcium Carb, Citrate/Vit D3 1 tab PO DAILY 03/06/19 04/22/19 History [Calcium+D3 Gradual Releas] Cod Liver Oil 1 each PO DAILY 03/06/19 04/22/19 History Cyanocobalamin TAB* [Vitamin B12 1,000 mcg PO DAILY 03/06/19 04/22/19 History TAB*] Cyclosporine 0.05% OPHTH (NF) 1 drop BOTH EYES BID 03/06/19 04/22/19 History [Restasis 0.05% OPHTH] Garlic 1,000 mg PO DAILY 03/06/19 04/22/19 History Hydrocodone/Acetaminophen [Vicodin 1 tab PO DAILY 03/06/19 04/22/19 History 5-300 mg] Iron 28 mg PO DAILY 03/06/19 04/22/19 History L.acidoph,Paracasei, B.lactis 1 each PO DAILY 03/06/19 04/22/19 History [Probiotic] Multivitamins/Minerals TAB* 1 tab PO DAILY 03/06/19 04/22/19 History [Theragran/minerals TAB*] Olopatadine 0.2% (NF) [Pataday 1 drop BOTH EYES DAILY 03/06/19 04/22/19 History 0.2% (NF)] Pantoprazole TAB * [Protonix TAB*] 40 mg PO BID 03/06/19 04/22/19 History Spironolactone TAB* [Aldactone 25 mg PO DAILY 03/06/19 04/22/19 History TAB*] Valsartan/HCTZ 160/12.5(NF) 1 tab PO DAILY 03/06/19 04/22/19 History [Diovan HCT 160/12.5 (NF)] HPI: The patient was released from [facility] [place] 04/07/19 after rehab for her second R hip surgery which was 03/09/19. Her first R hip surgery was at 02/23/19, both at [facility]. The patient was standing up preparing lunch when she became very lightheaded, nothing she has experienced before Family History: Findings - uremarkable Social History: Findings - , no children. Quit smoking 1973 alcohol use. Yazdanism, would never agree to blood transfusion. SDM is her friend Marcellus Andres. Past Medical History: Findings - Surgery for uterine cancer, cholecystectomy, cataract surgery, BL TKA Review of Systems - Measurements Intake and Output: Intake and Output Last 24 Hours 04/20/19 04/21/19 04/22/19 04/23/19 06:59 06:59 06:59 06:59 Intake Total 1050 Balance 1050 Weight 180 lb Intake: IV Fluids 1050 - Review of Systems Constitutional Symptoms: Negative: Weight Gain, Weight Loss, Weakness, Fatigue, Fever, Night Sweats, Unexplained Falls, Other Dermatology: Positive: Normal HEENT: Positive: Normal Eyes: Positive: Normal Thyroid: Positive: Normal Pulmonary: Positive: Normal Cardiology: Positive: Normal Gastroenterology: Positive: Normal Genital - Urinary: Positive: Normal Genitourinay - Female: Positive: Menopause Musculoskeletal: Positive: Joint Pain Endocrinology: Positive: Normal Hematologic/Lymphatic: Negative: Anemia, Easy Bruising, Hx Leukemia, Hx Lymphoma, Use of Anticoagulant, Use of Antiplatelet Drugs, Other Neurology: Positive: Normal Psychiatry: Positive: Normal Allergic/Immunologic: Negative: Hx Anaphylaxis, Hx Angioedema, Hx Environmental, Hx Seasonal, Asthma, Hx HIV, Immunocompromise, Swollen Glands LymphNodes, Other Objective Active Medications: Hydrocodone Bitart/Acetaminophen ([place] 5-325 Tab*) 1 tab PO BEDTIME ANUEL Aspirin (Aspirin Ec Tab*) 81 mg PO DAILY ANUEL Cyanocobalamin (Vitamin B12 Tab*) 1,000 mcg PO DAILY ANUEL Cyclosporine (Restasis 0.05% Ophth) 1 drop BOTH EYES BID ANUEL; Protocol Enoxaparin Sodium (Lovenox(*)) 40 mg SUBCUT Q24H ANUEL Dextrose/Sodium Chloride (D5ns 0.9% 1000 Ml Bag*) 1,000 mls @ 100 mls/hr IV PER RATE [facility] Olopatadine HCl (Pataday 0.2% (Nf)) 1 drop BOTH EYES DAILY [facility] Pantoprazole Sodium (Protonix Tab*) 40 mg PO BID ANUEL Vital Signs - 8 hr 04/22/19 04/22/19 04/22/19 13:16 13:28 13:29 Temperature 97 F Pulse Rate 92 86 92 Respiratory 18 Rate Blood Pressure 81/42 76/53 (mmHg) O2 Sat by Pulse 93 96 98 Oximetry 04/22/19 04/22/19 04/22/19 13:36 14:13 14:16 Temperature Pulse Rate 81 81 Respiratory Rate Blood Pressure 70/40 86/50 (mmHg) O2 Sat by Pulse 94 96 Oximetry 04/22/19 04/22/19 04/22/19 14:29 14:45 15:00 Temperature Pulse Rate 93 96 99 Respiratory Rate Blood Pressure 82/53 89/56 (mmHg) O2 Sat by Pulse 97 94 93 Oximetry 04/22/19 04/22/19 04/22/19 15:28 15:45 16:00 Temperature Pulse Rate 105 106 108 Respiratory Rate Blood Pressure 114/58 93/64 (mmHg) O2 Sat by Pulse 92 91 92 Oximetry 04/22/19 04/22/19 04/22/19 16:15 16:45 17:00 Temperature Pulse Rate 108 105 105 Respiratory Rate Blood Pressure 100/62 103/57 (mmHg) O2 Sat by Pulse 94 95 94 Oximetry 04/22/19 17:04 Temperature 98.9 F Pulse Rate 105 Respiratory 18 Rate Blood Pressure 103/57 (mmHg) O2 Sat by Pulse 95 Oximetry Oxygen Devices in Use Now: Nasal Cannula Appearance: Alert, partly up on ED stretcher. In good spirits, looks comfortable. Eyes: No Scleral Icterus Ears/Nose/Mouth/Throat: Clear Oropharnyx, Mucous Membranes Moist Neck: NL Appearance and Movements; NL JVP, No Thyroid Enlargement, Masses Respiratory: Symmetrical Chest Expansion and Respiratory Effort, Clear to Auscultation, Clear to Percussion Cardiovascular: NL Sounds; No Murmurs; No JVD, RRR, No Edema, - Extremities: No Edema, No Clubbing, Cyanosis, - Skin: No Rash or Ulcers, No Nodules or Sclerosis, - Neurological: Alert and Oriented x 3, NL Sensation Result Diagrams: 04/23/19 05:50 04/22/19 20:11 Assess/Plan/Problems-Billing Assessment: - Patient Problems (1) Pulmonary embolism Current Visit: Yes Status: Acute Code(s): I26.99 - OTHER PULMONARY EMBOLISM WITHOUT ACUTE COR PULMONALE SNOMED Code(s): 96234411 Comment: IV heparin started. Echo ordered. (2) HTN (hypertension) Current Visit: Yes Status: Acute Code(s): I10 - ESSENTIAL (PRIMARY) HYPERTENSION SNOMED Code(s): 37960988 Comment: Hold BP meds in view of earlier hypotension. (3) Sleep apnea Current Visit: Yes Status: Acute Code(s): G47.30 - SLEEP APNEA, UNSPECIFIED SNOMED Code(s): 73910679 Comment: Patient will have her home CPAP machine brought in. It is set at 13.
--- NOTE | 2019-04-22 18:40 | PN ---
Hospitalist Progress Note Date of Service: 04/22/19 CTA pos for large bilateral PE Will start on heparin drip Pl refer to h and p dictated by dr beltrán for details
[2019-04-22] MEDS ORDERED: Heparin DRIP 25,000 UNITS(*) 25,000 UNITS/500 ML BAG IV SCH (18:45)
[2019-04-22] MEDS ORDERED: Heparin VIAL(*) 5000 UNITS/ML VIAL (FIVE THOUSAND) IV SCH (19:00)
[2019-04-22 20:21] LABS: ABS Basophils 0.1 10^3/ul (0-0.2); ABS Lymphocytes 1.3 10^3/ul (1.0-4.8); ABS Monocytes 0.7 10^3/ul (0-0.8); Hematocrit 28 % (35-47); Hemoglobin 9.2 g/dL (12.0-16.0); Lymphocyte % 11.1 %; Mean Corpuscular HGB Conc 33 g/dL (31-36); Mean Corpuscular Hemoglobin 30 pg (27-31); Mean Corpuscular Volume 91 fL (80-97); Mean Platelet Volume 10.7 fL (7.4-10.4); Nucleated Red Blood Cells % 0.1; Platelet Count 164 10^3/uL (150-450); Red Blood Count 3.08 10^6 /uL (3.70-4.87); Red Cell Distribution Width 14 % (10-15); White Blood Count 12.2 10^3/uL (3.5-10.8)
[2019-04-22 20:34] LABS: EGFR African American 42.9 (>60); EGFR Non-African American 35.4 (>60)
[2019-04-22] MEDS ORDERED: Carvedilol TAB* 6.25 MG PO ONE (21:00)
[2019-04-22] MEDS: CMCS:Cyclosporine 0.05% OPHTH (NF) 0.4 ML VIAL BOTH EYES SCH (21:04)
[2019-04-22] MEDS: HYDROcodone/ACETAMIN 5-325 MG* 1 TAB PO SCH (21:05)
[2019-04-22] MEDS: Pantoprazole TAB * 40 MG TAB PO SCH (21:08)
[2019-04-22] MEDS: D5NS 0.9% 1000 ML BAG* 1,000 ML IV SCH (21:34)
[2019-04-23 06:16] LABS: ABS Basophils 0.1 10^3/ul (0-0.2); ABS Eosinophils 0.1 10^3/ul (0-0.6); ABS Lymphocytes 1.5 10^3/ul (1.0-4.8); ABS Monocytes 0.6 10^3/ul (0-0.8); ABS Neutrophils 4.6 10^3/ul (1.5-7.7); Eosinophil % 1.2 %; Hematocrit 25 % (35-47); Hemoglobin 8.3 g/dL (12.0-16.0); Lymphocyte % 22.2 %; Mean Corpuscular HGB Conc 33 g/dL (31-36); Mean Corpuscular Hemoglobin 30 pg (27-31); Mean Corpuscular Volume 91 fL (80-97); Mean Platelet Volume 10.8 fL (7.4-10.4); Platelet Count 133 10^3/uL (150-450); Red Blood Count 2.76 10^6 /uL (3.70-4.87); Red Cell Distribution Width 14 % (10-15); White Blood Count 6.9 10^3/uL (3.5-10.8)
[2019-04-23] MEDS: D5NS 0.9% 1000 ML BAG* 1,000 ML IV SCH ×2 (08:17→22:16)
[2019-04-23] MEDS: Pantoprazole TAB * 40 MG TAB PO SCH ×2 (08:18→20:41)
[2019-04-23] MEDS: Cyanocobalamin TAB* 500 MCG PO SCH (08:18)
[2019-04-23] MEDS: OLOPATADINE 0.2% BOTH EYES SCH (08:19)
[2019-04-23] MEDS: CMCS:Cyclosporine 0.05% OPHTH (NF) 0.4 ML VIAL BOTH EYES SCH ×4 (08:59→22:10)
[2019-04-23] MEDS ORDERED: Aspirin EC TAB* 81 MG TAB.EC PO SCH (09:00)
--- NOTE | 2019-04-23 09:12 | PN ---
Subjective Date of Service: 04/23/19 Interval History: Not SOB. She has been at bedrest since admission. No new c/o. Family History: Findings - uremarkable Social History: Findings - , no children. Quit smoking 1973 alcohol use. Tenriism, would never agree to blood transfusion. SDM is her friend Marcellus Andres. Past Medical History: Findings - Surgery for uterine cancer, cholecystectomy, cataract surgery, BL TKA Objective Active Medications: Hydrocodone Bitart/Acetaminophen ([place] 5-325 Tab*) 1 tab PO BEDTIME [facility] Last Admin: 04/22/19 21:05 Dose: 1 tab Apixaban (Eliquis*) 10 mg PO BID [facility] Cyanocobalamin (Vitamin B12 Tab*) 1,000 mcg PO DAILY [facility] Last Admin: 04/23/19 08:18 Dose: 1,000 mcg Cyclosporine (Restasis 0.05% Ophth) 1 drop BOTH EYES BID [facility]; Protocol Last Admin: 04/23/19 09:01 Dose: 1 drop Heparin Sodium (Porcine) (Heparin Vial(*)) 0 units IV .PER PROTOCOL ANUEL Stop: 04/23/19 21:00 Last Admin: 04/22/19 21:35 Dose: 4,800 units Dextrose/Sodium Chloride (D5ns 0.9% 1000 Ml Bag*) 1,000 mls @ 100 mls/hr IV PER RATE [facility] Last Admin: 04/23/19 08:17 Dose: 100 mls/hr Heparin Sodium/Dextrose (Heparin Drip 25,000 Units(*)) 25,000 units in 500 mls @ 0 mls/hr IV PER RATE [facility]; Protocol Stop: 04/23/19 21:00 Last Admin: 04/22/19 21:34 Dose: 23 mls/hr Olopatadine HCl (Pataday 0.2% (Nf)) 1 drop BOTH EYES DAILY [facility] Last Admin: 04/23/19 08:19 Dose: Not Given Pantoprazole Sodium (Protonix Tab*) 40 mg PO BID [facility] Last Admin: 04/23/19 08:18 Dose: 40 mg Vital Signs - 8 hr 04/23/19 04/23/19 03:20 07:15 Temperature 97.5 F 97.7 F Pulse Rate 86 94 Respiratory 18 16 Rate Blood Pressure 98/46 105/54 (mmHg) O2 Sat by Pulse 98 99 Oximetry Oxygen Devices in Use Now: Nasal Cannula Appearance: Alert, partly up in bed. In good spirits. Looks comfortable. Eyes: No Scleral Icterus Neck: NL Appearance and Movements; NL JVP, No Thyroid Enlargement, Masses Respiratory: Symmetrical Chest Expansion and Respiratory Effort, Clear to Auscultation, Clear to Percussion Cardiovascular: NL Sounds; No Murmurs; No JVD, RRR, No Edema, - Extremities: No Edema, No Clubbing, Cyanosis, - Skin: No Rash or Ulcers, No Nodules or Sclerosis, - Neurological: Alert and Oriented x 3, NL Sensation Result Diagrams: 04/23/19 05:50 04/22/19 20:11 Microbiology and Other Data: Microbiology 04/22/19 19:00 Nasal Screen MRSA (PCR) - Final Nasal Mrsa Not Detected Assess/Plan/Problems-Billing Assessment: - Patient Problems (1) Pulmonary embolism Current Visit: Yes Status: Acute Code(s): I26.99 - OTHER PULMONARY EMBOLISM WITHOUT ACUTE COR PULMONALE SNOMED Code(s): 77488287 Comment: IV heparin started. Echo ordered. Change to apixaban 10 mg bid x 7 days then 5 mg bid. Consider discharge 04/24 if stable. (2) HTN (hypertension) Current Visit: Yes Status: Acute Code(s): I10 - ESSENTIAL (PRIMARY) HYPERTENSION SNOMED Code(s): 53517409 Comment: Hold BP meds in view of earlier hypotension. (3) Sleep apnea Current Visit: Yes Status: Acute Code(s): G47.30 - SLEEP APNEA, UNSPECIFIED SNOMED Code(s): 18728007 Comment: Patient will have her home CPAP machine brought in. It is set at 13. (4) Impaired weight bearing Current Visit: Yes Status: Acute Code(s): R26.89 - OTHER ABNORMALITIES OF GAIT AND MOBILITY SNOMED Code(s): 975484135 Comment: Due to recent ortho surgery, pt is non-weight bearing for about another week, when she will see her surgeon in [place]. She has been managing home alone well, using a walker as a crutch and obeying the non-WB restriction.
--- NOTE | 2019-04-23 14:01 | ECHO ---
*[facility]* [place] [address] Fax #: [phone] Transthoracic Echocardiogram Patient: Mireille Seth : 1935 Study Date: 04/23/2019 Age: 84 Gender: F HR: 96 bpm Height: 63 in /160 cm BSA: 1.85 m^2 Weight: 179.6 lb /81.6 kg BMI: 31.9 kg/m^2 *Lot Associate: * Lady Landin RDCS RN *Referring Physician: * Kalyan Goldman *Reading Physician: * Eliezer Wyman MD Indications: Pulmonary embolism. History: Recent hip surgery. Risk factors: Former tobacco use. Hypertension. Obese. Conclusions Summary: - Left ventricle: The cavity size is moderately reduced. Wall thickness is mildly increased. Systolic function is normal. The estimated ejection fraction is 60-65%. Wall motion is normal; there are no regional wall motion abnormalities. There is septal flattening. - Right ventricle: The cavity size is moderately to severely dilated. Systolic function is severely reduced. - Right atrium: The atrium is mildly dilated by linear measurements, but moderately dilated relative to the left atrium. - Mitral valve: There is trace regurgitation. - Tricuspid valve: There is mild-moderate regurgitation. - Pulmonary arteries: Systolic pressure is moderately increased, estimated to be 48 mm Hg. - C/t 01/25/2009, there is interval left ventricle ejection fraction improvement from 45-50% then. R sided abnormality are new. Tricuspid regurgitation was mild then. PHTN is new. Study data: Transthoracic echocardiogram. Procedure: Transthoracic echocardiography was performed. Image quality was fair. The study was technically limited due to body habitus and smoking history. Complete 2D, spectral Doppler, and color flow Doppler. Location: Bedside. Patient status: Observation. Patient room number: 452. Rhythm: Normal sinus rhythm with PVC's. Findings Left ventricle: The cavity size is moderately reduced. Wall thickness is mildly increased. Systolic function is normal. The estimated ejection fraction is 60-65%. Wall motion is normal; there are no regional wall motion abnormalities. There is septal flattening. There is no consistent Doppler evidence of clinically significant diastolic dysfunction. Right ventricle: The cavity size is moderately to severely dilated. Systolic function is severely reduced. Systolic pressure is moderately increased. Left atrium: The atrium is normal in size. Right atrium: The atrium is mildly dilated by linear measurements, but moderately dilated relative to the left atrium. Mitral valve: The leaflets are mildly thickened. There is no evidence of stenosis. There is trace regurgitation. Aortic valve: The valve is trileaflet. The leaflets are mildly thickened. There is no evidence of stenosis. There is no significant regurgitation. Tricuspid valve: The valve is structurally normal. There is no evidence of stenosis. There is mild-moderate regurgitation. Pulmonic valve: Not well visualized. There is no evidence of stenosis. There is no significant regurgitation. Aorta: Ascending aorta: The ascending aorta is not dilated. Aortic arch: The aortic arch is not visualized. The aortic root appears normal. Pericardium: There is no pericardial effusion. Pulmonary arteries: Not well visualized. Systolic pressure is moderately increased, estimated to be 48 mm Hg. Systemic veins: Inferior vena cava: The vessel is normal in size. There is (< 50%) respiratory change in the IVC dimension. Measurements Left ventricle Value Ref Aortic valve Value Ref PADMINI, LAX (L) 2.7 cm 3.8 - 5.2 Yohana diam, ED 1.8 cm ---- ESD, LAX (L) 1.8 cm 2.2 - 3.5 Peak v, S 1.24 m/sec ---- FS, LAX 37 % 27 - 45 VTI, S 20.0 cm ---- PW, ED (H) 1.1 cm 0.6 - 0.9 Mean grad, S 4.0 mm Hg ---- IVS/PW, ED 0.89 Peak grad, S 6.0 mm Hg ---- E', med yohana, TDI (L) 4.8 cm/sec >=7.0 LVOT/AV, VTI ratio 0.62 --- - E/e', med yohana, 10 TDI Mitral valve Value Ref Peak E 0.5 m/sec ---- LVOT Value Ref Peak A 0.9 m/sec ---- Peak lucius, S 0.73 m/sec Decel time 268 ms ---- VTI, S 12.4 cm Peak E/A ratio 0.6 ---- Mean grad, S 1 mm Hg Pulmonic valve Value Ref Ventricular septum Value Ref Peak v, S 0.48 m/sec ---- IVS, ED (H) 1.0 cm 0.6 - 0.9 Peak grad, S 1.0 mm Hg ---- Right ventricle Value Ref Tricuspid valve Value Ref PADMINI, LAX 4.9 cm Peak RV-RA grad, S 40 mm Hg ---- PADMINI minor ax, A4C (H) 4.8 cm 1.9 - 3.5 Max TR lucius 3.16 m/sec ---- mid Pressure, S 48 mm Hg Aortic root Value Ref Root diam 3.4 cm <4.0 Left atrium Value Ref AP dim, ES 3.20 cm 2.70 - Ascending aorta Value Ref 3.80 AAo AP diam, S 3.2 cm ---- ML dim, A4C 2.3 cm SI dim, A4C 4.1 cm Pulmonary artery Value Ref Pressure, S 48.0 mm Hg ---- Right atrium Value Ref ML dim, ES, A4C (H) 4.5 cm 2.6 - 4.4 Inferior vena cava Value Ref SI dim, ES, A4C 4.9 cm 3.4 - 5.3 Diam 2.1 cm ---- Estimated RAP 8 mm Hg Legend: (L) and (H) cash values outside specified reference range. Prepared and electronically signed by Eliezer Wyman MD 04/23/2019 14:01
[2019-04-23] MEDS: HYDROcodone/ACETAMIN 5-325 MG* 1 TAB PO SCH (20:38)
[2019-04-23] MEDS: Apixaban* 5 MG TAB PO SCH (20:41)
[2019-04-24] MEDS: Apixaban* 5 MG TAB PO SCH ×2 (09:00→20:42)
[2019-04-24] MEDS: Pantoprazole TAB * 40 MG TAB PO SCH ×2 (09:01→20:41)
[2019-04-24] MEDS: Cyanocobalamin TAB* 500 MCG PO SCH (09:01)
[2019-04-24] MEDS: CMCS:Cyclosporine 0.05% OPHTH (NF) 0.4 ML VIAL BOTH EYES SCH ×2 (09:02→20:41)
[2019-04-24] MEDS: OLOPATADINE 0.2% BOTH EYES SCH (09:04)
[2019-04-24 09:11] LABS: ABS Basophils 0.1 10^3/ul (0-0.2); ABS Eosinophils 0.1 10^3/ul (0-0.6); ABS Lymphocytes 1.1 10^3/ul (1.0-4.8); ABS Monocytes 0.8 10^3/ul (0-0.8); ABS Neutrophils 5.9 10^3/ul (1.5-7.7); Eosinophil % 1.5 %; Hematocrit 27 % (35-47); Hemoglobin 8.9 g/dL (12.0-16.0); Lymphocyte % 13.2 %; Mean Corpuscular HGB Conc 34 g/dL (31-36); Mean Corpuscular Hemoglobin 30 pg (27-31); Mean Corpuscular Volume 91 fL (80-97); Mean Platelet Volume 11.2 fL (7.4-10.4); Platelet Count 147 10^3/uL (150-450); Red Blood Count 2.93 10^6 /uL (3.70-4.87); Red Cell Distribution Width 14 % (10-15); White Blood Count 7.9 10^3/uL (3.5-10.8)
[2019-04-24 09:19] LABS: EGFR African American 56.4 (>60); EGFR Non-African American 46.6 (>60)
--- NOTE | 2019-04-24 11:15 | PN ---
Subjective Date of Service: 04/24/19 Interval History: No acute events overnight. On room air at rest, O2 sat 91%. Tachy to 94. Pain in b/l legs. Just walked with PT, rec okay back to home. Hx of Iron deficiency anemia and Prieto's esophagus and there was concern for possible GI bleed at [facility] during early March admission. But her heart went "kaplooy" and thought not appropriate for EGD. Heart meds were changed but then returned as outpatient by Dr. Kaur. Femur fracture was nontraumatic but history of mid femur fracture at teen resulting in bowing deformity. Follows with Dr. Frazier (Ortho) Family History: Findings - uremarkable Social History: Findings - , no children. Quit smoking 1973 alcohol use. Mandaen, would never agree to blood transfusion. SDM is her friend Marcellus Andres. Past Medical History: Findings - Surgery for uterine cancer, cholecystectomy, cataract surgery, BL TKA Objective Active Medications: Hydrocodone Bitart/Acetaminophen ([place] 5-325 Tab*) 1 tab PO BEDTIME [facility] Last Admin: 04/23/19 20:38 Dose: 1 tab Apixaban (Eliquis*) 10 mg PO BID [facility] Last Admin: 04/24/19 09:00 Dose: 10 mg Cyanocobalamin (Vitamin B12 Tab*) 1,000 mcg PO DAILY [facility] Last Admin: 04/24/19 09:01 Dose: 1,000 mcg Cyclosporine (Restasis 0.05% Ophth) 1 drop BOTH EYES BID [facility]; Protocol Last Admin: 04/24/19 09:02 Dose: 1 drop Dextrose/Sodium Chloride (D5ns 0.9% 1000 Ml Bag*) 1,000 mls @ 100 mls/hr IV PER RATE [facility] Last Admin: 04/23/19 22:16 Dose: 100 mls/hr Olopatadine HCl (Pataday 0.2% (Nf)) 1 drop BOTH EYES DAILY [facility] Last Admin: 04/24/19 09:04 Dose: Not Given Pantoprazole Sodium (Protonix Tab*) 40 mg PO BID [facility] Last Admin: 04/24/19 09:01 Dose: 40 mg Vital Signs - 8 hr 04/24/19 04/24/19 03:11 07:15 Temperature 97.4 F 97.9 F Pulse Rate 94 95 Respiratory 20 18 Rate Blood Pressure 159/76 149/64 (mmHg) O2 Sat by Pulse 91 92 Oximetry Oxygen Devices in Use Now: None Appearance: NAD, sitting in chair. Eyes: No Scleral Icterus Ears/Nose/Mouth/Throat: NL Teeth, Lips, Gums Neck: NL Appearance and Movements; NL JVP, Trachea Midline Respiratory: Symmetrical Chest Expansion and Respiratory Effort, Clear to Auscultation Cardiovascular: NL Sounds; No Murmurs; No JVD, - - tachycardic Abdominal: NL Sounds; No Tenderness; No Distention Extremities: No Edema Skin: No Rash or Ulcers Neurological: Alert and Oriented x 3 Nutrition: Taking PO's Result Diagrams: 04/24/19 08:52 04/24/19 08:52 Additional Lab and Data: Laboratory Results - last 24 hr 04/23/19 04/24/19 04/24/19 16:39 08:52 08:52 WBC 7.9 RBC 2.93 L Hgb 8.9 L Hct 27 L MCV 91 MCH 30 MCHC 34 RDW 14 Plt Count 147 L MPV 11.2 H Neut % (Auto) 74.9 Lymph % (Auto) 13.2 [place] % (Auto) 9.7 Eos % (Auto) 1.5 Baso % (Auto) 0.7 Absolute Neuts (auto) 5.9 Absolute Lymphs (auto) 1.1 Absolute Monos (auto) 0.8 Absolute Eos (auto) 0.1 Absolute Basos (auto) 0.1 Absolute Nucleated RBC 0.0 Nucleated RBC % 0.0 APTT 45.4 H BUN 15 Creatinine 1.12 H Est GFR ( Amer) 56.4 Est GFR (Non-Af Amer) 46.6 04/24/19 08:52 WBC RBC Hgb Hct MCV MCH MCHC RDW Plt Count MPV Neut % (Auto) Lymph % (Auto) [place] % (Auto) Eos % (Auto) Baso % (Auto) Absolute Neuts (auto) Absolute Lymphs (auto) Absolute Monos (auto) Absolute Eos (auto) Absolute Basos (auto) Absolute Nucleated RBC Nucleated RBC % APTT 32.6 BUN Creatinine Est GFR ( Amer) Est GFR (Non-Af Amer) Microbiology and Other Data: Microbiology 04/22/19 14:30 Urine Urine Culture - Final Staphylococcus Epidermidis 04/22/19 19:00 Nasal Nasal Screen MRSA (PCR) - Final Mrsa Not Detected Assess/Plan/Problems-Billing Assessment: 84 yo female PMH HTN, recent right hip replacement 02/23/19 c/b periprosthetic femur fracture repaired 03/09/19. P/w presyncope, SOB, tachycardia found to have extensive b/l pulmonary embolism with associated acute right heart failure/cor pulmonale. s/p heparin gtt now Eliquis. - Patient Problems (1) Pulmonary embolism Current Visit: Yes Status: Acute Code(s): I26.99 - OTHER PULMONARY EMBOLISM WITHOUT ACUTE COR PULMONALE SNOMED Code(s): 97364524 Comment: s/p IV heparin started. Echo ordered with septal flattenting and severe right systolic dsyfunction consistent with cor pulmonale. Now on apixaban 10 mg bid x 7 days (started 04/23 PM) then 5 mg bid. ambulate to see if requiring oxygen with ambulation. DVT duplex to rule out DVTS. (2) DVT prophylaxis Current Visit: Yes Status: Acute Code(s): Z29.9 - ENCOUNTER FOR PROPHYLACTIC MEASURES, UNSPECIFIED SNOMED Code(s): 574325994 Comment: on eliquis now (3) HTN (hypertension) Current Visit: Yes Status: Acute Code(s): I10 - ESSENTIAL (PRIMARY) HYPERTENSION SNOMED Code(s): 01168272 Comment: home BP meds were held on admission given hypotension, extensive PE and new right heart failure. BPs improving. Restart coreg at lower dose given as SBP high as 159 this AM. (4) Impaired weight bearing Current Visit: Yes Status: Acute Code(s): R26.89 - OTHER ABNORMALITIES OF GAIT AND MOBILITY SNOMED Code(s): 755224902 Comment: Due to recent ortho surgery, pt is non-weight bearing for about another week, when she will see her surgeon on Saturday 04/28. She has been managing home alone well, using a walker as a crutch and obeying the non-WB restriction. PT has cleared back for home with home PT Wed,Wed (5) Sleep apnea Current Visit: Yes Status: Acute Code(s): G47.30 - SLEEP APNEA, UNSPECIFIED SNOMED Code(s): 11139772 Comment: Patient will have her home CPAP machine brought in. It is set at 13. Status and Disposition: medicine inpatient. possible d/c home 04/24 vs 04/25.
[2019-04-24 11:46] LABS: Magnesium 1.5 mg/dL (1.9-2.7)
[2019-04-24] MEDS: Carvedilol TAB* 3.125 MG PO SCH ×2 (12:23→20:41)
[2019-04-24] MEDS: Ferrous Gluconate TAB* 324 MG TAB PO SCH (12:24)
[2019-04-24] MEDS ORDERED: Magnesium Sulfate IV* 3 GM in NS 0.9% 100 ML* 100 ML IVPB ONE (12:39)
[2019-04-24] MEDS: HYDROcodone/ACETAMIN 5-325 MG* 1 TAB PO SCH (20:40)
[2019-04-25] MEDS: Pantoprazole TAB * 40 MG TAB PO SCH (08:05)
[2019-04-25] MEDS: OLOPATADINE 0.2% BOTH EYES SCH (08:05)
[2019-04-25] MEDS: Apixaban* 5 MG TAB PO SCH ×2 (08:07→10:51)
[2019-04-25] MEDS: Ferrous Gluconate TAB* 324 MG TAB PO SCH (08:07)
[2019-04-25] MEDS: Carvedilol TAB* 3.125 MG PO SCH (08:07)
[2019-04-25] MEDS: Cyanocobalamin TAB* 500 MCG PO SCH (08:07)
[2019-04-25] MEDS: CMCS:Cyclosporine 0.05% OPHTH (NF) 0.4 ML VIAL BOTH EYES SCH (08:07)
[2019-04-25 10:36] VITALS: BP 144/60
--- NOTE | 2019-04-25 13:48 | CONSULT ---
Palliative / Hospice Consult Ordering Provider: Arnoldo Clark - PCP-Kevon Referal Reason: Goals of care discussion/no bowel meds/hydrocodone prn - Subjective Code Status: DNR Advance Directives Location: [facility] [place] EMR MOLST Part A Completed: Yes - completed with pt on chart MOLST Part E Completed:: Yes - completed with pt on chart - History or Present Illness History or Present Illness: 84yo female presents to ER via ambulance after feeling lightheaded and having SOB. Pt was discharged from [facility] on 04/07 after rehab for her R hip surgery 03/09/2019. PMH is significant for HTN, sleep apnea, Prieto's esophagitis, h/o uterine cancer and cholecystectomy. 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 Studies brain CT neg, CXR 1.8 density, EKG NSR, chest CT multifocal patch densities larger in RLL, chest CTA large bilateral pulmonary emboli, RLL emboli vs pneumonia, ECHO EF 60-65% RV dilatation, mild-mod TR, septal flattening, systolic function is severely decreased, venous study R DVT calf to popliteal & L lower leg vein thrombus, H/H 8.9/27, BUN/Cr 15/1.12, egfr 46.6, Mg 1.5, BNP 244, lactic acid 5.2 now 1.8, CRP 95.67, alb 3.2, INR 32.6, D dimer >1050 and UC grew S. epidermidis. Pt admitted with bilat pulmonary emboli. All history is from the pt and medical record. Lab Values: Abnormal Lab Results 04/24/19 04/24/19 04/24/19 08:52 16:58 20:40 POC Glucose (mg/dL) 142 H 192 H Hemoglobin A1c 6.3 H Laboratory Last Values WBC 7.9 10^3/uL (3.5-10.8) 04/24/19 08:52 RBC 2.93 10^6 /uL (3.70-4.87) L 04/24/19 08:52 Hgb 8.9 g/dL (12.0-16.0) L 04/24/19 08:52 Hct 27 % (35-47) L 04/24/19 08:52 MCV 91 fL (80-97) 04/24/19 08:52 MCH 30 pg (27-31) 04/24/19 08:52 MCHC 34 g/dL (31-36) 04/24/19 08:52 RDW 14 % (10-15) 04/24/19 08:52 Plt Count 147 10^3/uL (150-450) L 04/24/19 08:52 MPV 11.2 fL (7.4-10.4) H 04/24/19 08:52 Neut % (Auto) 74.9 % 04/24/19 08:52 Lymph % (Auto) 13.2 % 04/24/19 08:52 [place] % (Auto) 9.7 % 04/24/19 08:52 Eos % (Auto) 1.5 % 04/24/19 08:52 Baso % (Auto) 0.7 % 04/24/19 08:52 Absolute Neuts (auto) 5.9 10^3/ul (1.5-7.7) 04/24/19 08:52 Absolute Lymphs (auto) 1.1 10^3/ul (1.0-4.8) 04/24/19 08:52 Absolute Monos (auto) 0.8 10^3/ul (0-0.8) 04/24/19 08:52 Absolute Eos (auto) 0.1 10^3/ul (0-0.6) 04/24/19 08:52 Absolute Basos (auto) 0.1 10^3/ul (0-0.2) 04/24/19 08:52 Absolute Nucleated RBC 0.0 10^3/ul 04/24/19 08:52 Nucleated RBC % 0.0 04/24/19 08:52 APTT 32.6 seconds (26.0-38.0) 04/24/19 08:52 D-Dimer, Quantitative > 1050 ng/mL (Less Than 230) H 04/22/19 16:05 Sodium 134 mmol/L (135-145) L 04/22/19 13:43 Potassium 4.6 mmol/L (3.5-5.0) 04/22/19 13:43 Chloride 100 mmol/L (101-111) L 04/22/19 13:43 Carbon Dioxide 22 mmol/L (22-32) 04/22/19 13:43 Anion Gap 12 mmol/L (2-11) H 04/22/19 13:43 BUN 15 mg/dL (6-24) 04/24/19 08:52 Creatinine 1.12 mg/dL (0.51-0.95) H 04/24/19 08:52 Est GFR ( Amer) 56.4 (>60) 04/24/19 08:52 Est GFR (Non-Af Amer) 46.6 (>60) 04/24/19 08:52 BUN/Creatinine Ratio 12.8 (8-20) 04/22/19 13:43 Glucose 340 mg/dL (70-100) H 04/22/19 13:43 POC Glucose (mg/dL) 192 mg/dL (70-100) H 04/24/19 20:40 Hemoglobin A1c 6.3 % (4.0-5.6) H 04/24/19 08:52 Lactic Acid 1.8 mmol/L (0.5-2.0) 04/22/19 16:06 Calcium 9.0 mg/dL (8.6-10.3) 04/22/19 13:43 Magnesium 1.5 mg/dL (1.9-2.7) L 04/24/19 08:52 Total Bilirubin 0.40 mg/dL (0.2-1.0) 04/22/19 13:43 AST 42 U/L (13-39) H 04/22/19 13:43 ALT 24 U/L (7-52) 04/22/19 13:43 Alkaline Phosphatase 65 U/L (34-104) 04/22/19 13:43 Troponin I 0.03 ng/mL (<0.04) 04/22/19 13:43 C-Reactive Protein 95.67 mg/L (<8.01) H 04/22/19 13:43 B-Natriuretic Peptide 244 pg/mL (<=100) H 04/22/19 13:43 Total Protein 6.3 g/dL (6.4-8.9) L 04/22/19 13:43 Albumin 3.2 g/dL (3.2-5.2) 04/22/19 13:43 Globulin 3.1 g/dL (2-4) 04/22/19 13:43 Albumin/Globulin Ratio 1.0 (1-3) 04/22/19 13:43 TSH 1.45 mcIU/mL (0.34-5.60) 04/22/19 13:43 Urine Color Yellow 04/22/19 14:30 Urine Appearance Cloudy 04/22/19 14:30 Urine pH 5 (5-9) 04/22/19 14:30 Ur Specific Guy 1.015 (1.010-1.030) 04/22/19 14:30 Urine Protein 1+(30 mg/dl) (Negative) A 04/22/19 14:30 Urine Ketones Negative (Negative) 04/22/19 14:30 Urine Blood 3+ (Negative) A 04/22/19 14:30 Urine Nitrate Negative (Negative) 04/22/19 14:30 Urine Bilirubin Negative (Negative) 04/22/19 14:30 Urine Urobilinogen Negative (Negative) 04/22/19 14:30 Ur Leukocyte Esterase 1+ (Negative) A 04/22/19 14:30 Urine WBC (Auto) 1+(6-10/hpf) (Absent) A 04/22/19 14:30 Urine RBC (Auto) 2+(6-10/hpf) (Absent) A 04/22/19 14:30 Ur Squamous Epith Cells Present (Absent) A 04/22/19 14:30 Urine Bacteria 1+ (Absent) A 04/22/19 14:30 Urine Glucose Negative (Negative) 04/22/19 14:30 Urine Ascorbic Acid * (Negative) A 04/22/19 14:30 Blood Type A Positive 04/22/19 13:43 Antibody Screen Negative 04/22/19 13:43 Crossmatch See Detail 04/22/19 13:43 - Objective Active Medications: Hydrocodone Bitart/Acetaminophen ([place] 5-325 Tab*) 1 tab PO BEDTIME [facility] Last Admin: 04/24/19 20:40 Dose: 1 tab Apixaban (Eliquis*) 10 mg PO BID [facility] Last Admin: 04/25/19 10:51 Dose: 10 mg Carvedilol (Coreg Tab*) 3.125 mg PO BID [facility] Last Admin: 04/25/19 08:07 Dose: 3.125 mg Cyanocobalamin (Vitamin B12 Tab*) 1,000 mcg PO DAILY [facility] Last Admin: 04/25/19 08:07 Dose: 1,000 mcg Cyclosporine (Restasis 0.05% Ophth) 1 drop BOTH EYES BID [facility]; Protocol Last Admin: 04/25/19 08:07 Dose: 1 drop Ferrous Gluconate (Fergon Tab*) 324 mg PO DAILY [facility] Last Admin: 04/25/19 08:07 Dose: 324 mg Olopatadine HCl (Pataday 0.2% (Nf)) 1 drop BOTH EYES DAILY [facility] Last Admin: 04/25/19 08:05 Dose: 1 drop Pantoprazole Sodium (Protonix Tab*) 40 mg PO BID [facility] Last Admin: 04/25/19 08:05 Dose: 40 mg Vital Signs: Vital Signs: Temp Pulse Resp BP Pulse Ox 97.9 F 93 19 144/60 90 04/25/19 08:05 04/25/19 08:05 04/25/19 08:05 04/25/19 08:05 04/25/19 08:05 Patient Weight: Weight 82.962 kg Intake and Output: Intake & Output 04/23/19 04/24/19 04/25/19 04/26/19 06:59 06:59 06:59 06:59 Intake Total 1190 5013 1065 Output Total 400 Balance 1190 5013 665 Weight 81.647 kg 82.826 kg 82.962 kg Intake: IV Fluids 1050 3942 Heparin 140 341 Oral 0 730 1065 Output: Urine 400 Other: Estimated Void Large # Voids 1 2 ADLs: Meal Record Start: 04/22/19 16: 46 Freq: DAILY@0900,1400,1800 Status: Active Protocol: Created 04/22/19 16:46 System (Rec: 04/22/19 16:46 System [id number]) Document 04/22/19 18:00 [id number] (Rec: 04/22/19 22:01 [id number] TELE-C13) Document 04/23/19 09:00 [id number] (Rec: 04/23/19 12:49 [id number] TELE-C03) Document 04/23/19 14:00 [id number] (Rec: 04/23/19 14:47 [id number] TELE-C06) Document 04/23/19 18:00 [id number] (Rec: 04/23/19 18:17 [id number] TELE-C10) Document 04/24/19 08:33 [id number] (Rec: 04/24/19 08:33 [id number] TELE-C11) Document 04/24/19 14:00 [id number] (Rec: 04/24/19 14:26 [id number] TELE-C11) Document 04/24/19 18:00 [id number] (Rec: 04/24/19 18:32 [id number] TELE-C10) Intake and Output Start: 04/22/19 13: 19 Freq: Status: Active Protocol: Created 04/22/19 13:19 System (Rec: 04/22/19 13:19 System [id number]) Intake and Output Start: 04/22/19 16: 46 Freq: DAILY@0600,1400,2200 Status: Active Protocol: Created 04/22/19 16:46 System (Rec: 04/22/19 16:46 System [id number]) Document 04/22/19 22:00 [id number] (Rec: 04/22/19 22:02 [id number] TELE-C13) Document 04/23/19 06:00 [id number] (Rec: 04/23/19 06:43 [id number] TELE-C13) Document 04/23/19 14:00 [id number] (Rec: 04/23/19 14:20 [id number] MININT- [id number]) Document 04/23/19 22:00 [id number] (Rec: 04/23/19 22:10 [id number] TELE-C10) Document 04/24/19 06:00 [id number] (Rec: 04/24/19 06:34 [id number] TELE-C11) Document 04/24/19 06:30 [id number] (Rec: 04/24/19 07:16 [id number] MININT- [id number]) Document 04/24/19 14:00 [id number] (Rec: 04/24/19 15:02 [id number] TELE-C11) Document 04/24/19 21:58 [id number] (Rec: 04/24/19 22:00 [id number] TELE-C10) Document 04/25/19 05:46 [id number] (Rec: 04/25/19 05:47 [id number] TELE-C11) Eyes: No Scleral Icterus Ears/Nose/Mouth/Throat: NL Teeth, Lips, Gums Neck: NL Appearance and Movements; NL JVP, Trachea Midline Cardiovascular: NL Sounds; No Murmurs; No JVD, - - tachycardic Abdominal: NL Sounds; No Tenderness; No Distention Extremities: No Edema Neurological: Alert and Oriented x 3 - Assessment Assessment: 84yo female with bilateral pulmonary emboli - Plan Consult Plan (MU): Palliative Plan: Long discussion with pt who is a Jehovah Witness. She will be returning to her home with VNS RN and PT and has friends checking in with her. We discussed her wishes going forward and she doesn't want CPR or intubation and she does have a SDM designated. She doesn't want to be kept alive by artificial means if there is no hope for meaningful life. MOLST was completed DNR/DNI, trial of feeding tube and IV fluids. All paperwork was witnessed by RN and given to pt in her discharge information packet. KPS 60% PPS 60% - Time On Unit Date of Evaluation: 04/25/19 Hospice Consult Time in: 12:30 Hospice Consult Time Out: 13:30 Hospice Consult Time Total: 60 > 50% of Time Spend In Counseling or Coordinating Care: Yes
--- NOTE | 2019-04-26 03:48 | DS ---
DISCHARGE SUMMARY: DATE OF ADMISSION: 04/22/19 DATE OF DISCHARGE: 04/25/19 ADMITTING PROVIDER: Kalyan Goldman MD. ATTENDING PHYSICIAN ON DAY OF DISCHARGE: Arnoldo Clark MD. PRIMARY CARE PROVIDER: Major Lund MD. CHIEF COMPLAINT: Presyncope with shortness of breath. PRINCIPAL DIAGNOSES: 1. Acute bilateral large pulmonary embolisms resulting in acute right heart failure/cor pulmonale. 2. Right lower extremity deep vein thrombosis and left lower extremity nonocclusive thrombus. HISTORY OF PRESENT ILLNESS AND HOSPITAL COURSE: Mireille Seth is an 84-year- old female with past medical history of hypertension and recent right hip surgery on 02/23/19 at [facility], which was then complicated by periprosthetic fracture with repair on 03/09/19. Please see H and P for full details. The patient had been recuperating at home, and while standing, she became very lightheaded with some vision changes and almost passed out, was short of breath. She presented to the emergency room and was hypotensive 80s/40s to as well as 70s/40s, was hypoxic with oxygen requirement, and tachycardic. She had elevated D-dimer greater than 1050, and a CTA of the chest demonstrated large bilateral pulmonary emboli with bilateral main lobar segmental/subsegmental PEs in the upper and lower lobes. There was associated patchy airspace and ground- glass opacities in the right lower lobe and left lower lobe, potentially representing pulmonary infarction. She was admitted to the hospitalist service , started on a heparin drip. Her blood pressure medications were held. She had a transthoracic echocardiogram, which showed EF of 60% to 65%. There was septal flattening. Right ventricular systolic function was severely reduced. There was [id number]-[id number] tricuspid valve regurgitation. Right ventricular systolic pressure was mildly increased to 48 mmHg. She was transitioned to Eliquis 10 mg p.o. b.i.d. for 7 days, and she took the first dose. She then had reservations given her Catholic beliefs that would preclude her from getting blood transfusion; and, now that she had baseline anemia on presentation with hemoglobin of 9.8 and low of 8.3 and on discharge was 8.9, she is on iron supplements. She ultimately did decide to go on the Eliquis in favor of Coumadin given that that would have required multiple blood draws, once she found out of the existence of andexanet ronald as a reversal agent. She worked with Physical Therapy and was thought to be at her baseline and will be following up with her orthopedic surgeon Dr. Nicole later in the week on Wednesday,04/28/19. She is toe touch until then. Her blood pressures recuperated. She was not requiring oxygen. Her magnesium level was found to be quite low at 1.6 and then 1.5, so for repletion she was started on magnesium supplements. DISCHARGE MEDICATIONS: Include: 1. Apixaban (Eliquis) 10 mg p.o. b.i.d. for another 6 days and then 5 mg p.o. b.i.d. thereafter (new). 2. Calcium carbonate with vitamin D3 one tab p.o. daily. 3. Carvedilol 12.5 mg p.o. b.i.d. 4. Cod liver oil 1 p.o. daily. 5. Cyanocobalamin 1000 mcg p.o. daily. 6. Restasis eye drops both eyes b.i.d. 7. Garlic 1000 mg p.o. daily. 8. Vicodin 5/300 mg 1 tab p.o. daily. 9. Iron 28 mg p.o. daily. 10. Probiotic 1 daily. 11. Magnesium oxide 400 mg p.o. daily (new). 12. Theragran mineral tabs, 1 tab p.o. daily. 13. Olopatadine 0.2% one drop both eyes daily. 14. Pollock-3 fatty acid 1 daily. 15. Protonix 40 mg p.o. b.i.d. 16. Red yeast rice 600 mg p.o. daily. Valsartan/hydrochlorothiazide 160/12.5 mg was discontinued. Her spironolactone 25 mg p.o. daily was also discontinued. Her blood pressure will need to be closely monitored as an outpatient as her body resorbs the can be titrated back on in the coming days to weeks. DISPOSITION: Home. CONDITION: Improved, but guarded given the extensive PE and cor pulmonale with little room for anemic blood losses while requiring blood thinners. Of note, Palliative Care was consulted during the brief time she was starting to refuse to any blood thinners, and MOLST form was updated to be DNR/DNI. DIET: Recommended carbohydrate consistent diet. As her hemoglobin A1c was elevated at 6.3, this should be followed up as an outpatient. FOLLOWUP: Please follow up with Dr. Major Lund within 7 days of discharge. Magnesium level should be rechecked and was also recommended CBC monitoring given her anemia. TIME SPENT ON DISCHARGE: 40 minutes. [id number]/[facility] #: [id number] MIGUEL
== END 2019-04-25 14:36 | disposition home health service (06) | DRG 175 ==
LOC: ED 13:14 → MEDTELE 16:08 → OBSVTOIN 17:00
PROVIDERS: ADMIT Internal Medicine; ATTEND Internal Medicine
DX: I26.09 Other pulmonary embolism with acute cor pulmonale (principal); I82.403 Acute embolism and thrombosis of unspecified deep veins of lower extremity, bilateral; I50.811 Acute right heart failure; I95.9 Hypotension, unspecified; G47.30 Sleep apnea, unspecified; R26.89 Other abnormalities of gait and mobility; K22.70 Barrett's esophagus without dysplasia; R55 Syncope and collapse; R09.02 Hypoxemia; I07.1 Rheumatic tricuspid insufficiency; Z66 Do not resuscitate; Z96.653 Presence of artificial knee joint, bilateral; Z79.1 Long term (current) use of non-steroidal anti-inflammatories (NSAID); Z79.82 Long term (current) use of aspirin; Z79.899 Other long term (current) drug therapy; Z87.891 Personal history of nicotine dependence
CPT/HCPCS: 36415; 70450; 71045; 71250; 71275; 80053; 81003; 81015; 82565; 83036; 83605; 83735; 83880; 84443; 84484; 84520; 85025; 85379; 85730; 86140; 86850; 86900; 86901; 86922; 87077; 87086; 87186; 87641; 93005; 93306; 93970; 96365; 96367; 99285; A9270-GY; G8978-GP-CI; G8979-GP-CI; G8980-GP-CI; J0696; J1644; J3475; Q9967